=== PATIENT | female | born 1935 | race Hispanic/Latino ===

== ENCOUNTER 2016-08-30 17:32 | Emergency (ER) | payer OTHER, MEDICARE ==
[~2016-08-30] VITALS: Ht 160 cm; Wt 2.4 kg
[~2016-08-30 17:32] MED LIST: ATORVASTATIN CA40 MG PO; COREG6.25 M1 PO; CRESTOR 5MG5 MG PO; EFFEXOR-XR75 MG PO; ESCITALOPRAM OX10 MG PO; GABAPENTIN400 M2 PO; GLIPIZIDE ER5 MG PO; GLIPIZIDE XL10 MG PO; GLUCOPHAGE500 MG PO; HCTZ/LISINOPRIL1 TAB PO; HYDRODIURIL 2525 MG PO; K-DUR 20MEQ TA20 MEQ PO; LANTUS SOLOS100 U/ML SC; LASIX20 M1 PO; LEVEMIR 10100 UNITS/ SC; LOSARTAN POTAS100 MG PO; LOSARTAN POTASS50 MG PO; LYRICA50 MG PO; MACROBID100 MG PO; METFORMIN HYDR500 MG PO; NEURONTIN800 M2 PO; NORVASC 10MG10 MG PO; NOVOLOG 10300 UNITS/ SC; NOVOLOG100 U/ML SC; PRINIVIL10 MG PO; PYRIDIUM100 MG PO; SIMVASTATIN20 MG PO; TRAMADOL50 MG PO; TYLENOL WITH C1 EACH PO; VITAMIN D50000 IU PO
[2016-08-30] MEDS ORDERED: TRULICITY1.5 MG/0.5 SC (18:31)
[2016-08-30] MEDS ORDERED: LISINOPRIL40 M1 PO (18:31)
[2016-08-30] MEDS ORDERED: LO-DOSE ASPIRIN81 MG PO (18:32)
[2016-08-30] MEDS ORDERED: CARVEDILOL3.125 M1 PO (18:32)
[2016-08-30] MEDS ORDERED: BUPROPION HCL75 M1 PO (18:32)
[2016-08-30] MEDS ORDERED: ATORVASTATIN CA40 M1 PO (18:32)
[2016-08-30] MEDS ORDERED: HYDROCHLOROTH12.5 M2 PO (18:32)
[2016-08-30] MEDS ORDERED: FUROSEMIDE40 M1 PO (18:33)
[2016-08-30] MEDS ORDERED: NOVOLOG MI100 UNIT/2 SC (18:33)
[2016-08-30] MEDS ORDERED: DOXYCYCLINE HY100 M4 PO (20:12)
--- NOTE | 2016-08-30 20:12 | ED SKIN/ALLERGY COMPLAINT ---
History of Present Illness General Chief Complaint: Skin Rash/ Abcess Stated Complaint: ABSCESS R ARMPIT Source: patient Exam Limitations: no limitations Allergies Coded Allergies: Penicillins (Severe, ANAPHYLAXIS/RASH 10/29/15) Reconcile Medications Aspirin (Lo-Dose Aspirin EC) 81 MG TABLET.DR 1 TAB PO DAILY HEART/BLOOD ( Reported) Atorvastatin Calcium 40 MG TABLET 1 TAB PO DAILY CHOLESTEROL (Reported) Bupropion HCl 75 MG TABLET 1 TAB PO DAILY DEPRESSION (Reported) Carvedilol 3.125 MG TABLET 1 TAB PO BID HEART/BP (Reported) Doxycycline Hyclate 100 MG TABLET 1 TAB PO BID ABSCESS Dulaglutide (Trulicity) 1.5 MG/0.5 ML PEN.INJCTR 1.5 MG SC QTHURS DM ( Reported) Furosemide 40 MG TABLET 1 TAB PO DAILY DIURETIC (Reported) Hydrochlorothiazide 12.5 MG TABLET 1 TAB PO DAILY BP (Reported) Insulin Aspart Protam & Aspart (Novolog Mix 70-30 Flexpen Syrn) 100 UNIT/ML (70- 30) INSULN.PEN DM (Reported) Lisinopril 40 MG TABLET 1 TAB PO DAILY BP (Reported) Tramadol HCl 50 MG TABLET 1 TAB PO BIDP PRN pain Triage Note: PT STATSE SHE HAS AN ABCESS RIGHT "ARMPIT" THAT BEGAN 4 DAYS AGO WITH DRAINAGE SINCE YESTERDAY Triage Nurses Notes Reviewed? yes Onset: Abrupt Duration: day(s):, constant, continues in ED Timing: recent history Severity: moderate, severe No Modifying Factors: none HPI: 81-year-old female comes into emergency room with complaints of right armpit swelling and pain. Symptoms were going on for the past few days. Denies any vomiting. Denies any prior history of this. Denies any other associated symptoms. Patient has a history of diabetes. Culture was thrown out by accident that was obtained. Patient was started on doxycycline. She'll return for wound check in 3 days. (MANDO MEDINA) Vital Signs & Intake/Output Vital Signs & Intake/Output Vital Signs Date Time Temp Pulse Resp B/P Pulse O2 O2 Flow FiO2 Ox Delivery Rate 08/30 2034 89 142/70 08/30 1744 96.7 87 16 162/82 96 Room Air Past History Travel History Traveled to [place] past 21 day No Medical History Any Pertinent Medical History? see below for history Neurological: NONE EENT: NONE Cardiovascular: hypertension, hyperlipidemia Respiratory: NONE Gastrointestinal: NONE Hepatic: NONE Renal: NONE Musculoskeletal: rheumatoid arthritis Psychiatric: depression Endocrine: diabetes Blood Disorders: NONE Cancer(s): NONE AUTOMOTIVE PROFESSIONAL/Reproductive: NONE History of MRSA: No History of VRE: No History of CDIFF: No Surgical History Surgical History: hysterectomy Psychosocial History Who do you live with Patient/Self Services at Home None What is your primary language Yi Tobacco Use: Never used ETOH Use: denies use Illicit Drug Use: denies illicit drug use Family History Family History, If Any: grandfather FH: prostate cancer DAUGHTER Blood clots FH: diabetes mellitus FHx: hypertension SON Blood clots Hx Contributory? No (MANDO MEDINA) Review of Systems Review of Systems Constitutional: Reports: no symptoms. EENTM: Reports: no symptoms. Respiratory: Reports: no symptoms. Cardiovascular: Reports: no symptoms. GI: Reports: no symptoms. Genitourinary: Reports: no symptoms. Musculoskeletal: Reports: no symptoms. Skin: Reports: see HPI. Neurological/Psychological: Reports: no symptoms. Hematologic/Endocrine: Reports: no symptoms. Immunologic/Allergic: Reports: no symptoms. All Other Systems: Reviewed and Negative (MANDO MEDINA) Physical Exam Physical Exam General Appearance: well developed/nourished, mild distress Head: atraumatic Eyes: Bilateral: normal appearance. Ears, Nose, Throat: normal ENT inspection, hearing grossly normal Neck: normal inspection Respiratory: no respiratory distress Back: normal inspection Extremities: normal inspection, normal range of motion, no edema Neurologic/Psych: awake, alert, oriented x 3, normal mood/affect Skin Problem Location: upper extremities (right axilla) Skin Problem Character: abcess, drainage, erythema, tenderness and fluctuance, Lymphatic: no anterior cervical alissa (MANDO MEDINA) Progress Differential Diagnosis: abscess/cellulitis, allergic reaction, anaphylaxis, contact dermatitis Plan of Care: see below (MNADO MEDINA) Departure Departure Disposition: HOME OR SELF CARE Condition: Stable Clinical Impression Primary Impression: Abscess of right axilla Referrals: UNKNOWN (PCP) Additional Instructions: Return in 2 days for packing removal. Return if any other concerns worsening symptoms. Take Bactrim and amoxicillin as prescribed. Please go over all results of today's visit with your primary care doctor. Contact your primary care doctor to let them know you were here in the emergency room. There may be nonspecific findings which may not be related to your visit today here in the emergency room but may require further evaluation and chronic monitoring by your primary care doctor. If you had a laceration today the chance of foreign body always remains. You should follow-up with your primary care doctor for recheck in 3-5 days for a wound check. If you had an x-ray done there is a chance that a fracture could have been missed on initial read and you should follow-up with your primary care doctor for repeat x-rays if symptoms persist. If your blood pressure was elevated here in the emergency room please have rechecked by her primary care doctor within the next 48 hours by your primary care doctor. If you were prescribed a narcotic here in the emergency room or any type of controlled substances you're not allowed to drive while taking this medication or operate any type of heavy machinery. Narcotics can make you feel lightheaded dizziness nausea and can cause constipation. You may need to belt picker a stool softener. Thank you for choosing [facility] emergency room. Please return to the emergency room immediately if you have any other concerns worsening of symptoms. Departure Forms: Customer Survey General Discharge Information Prescriptions: Current Visit Scripts Doxycycline Hyclate 1 TAB PO BID #20 TAB Tramadol HCl 1 TAB PO BIDP PRN pain #10 TAB (MANDO MEDINA) PA/TENNIS BALL COVERER HAND Co-Sign Statement Statement: ED Attending supervision documentation- [x] I saw and evaluated the patient. I have also reviewed all the pertinent lab results and diagnostic results. I agree with the findings and the plan of care as documented in the PA's/TENNIS BALL COVERER HAND's documentation. [] I have reviewed the ED Record and agree with the PA's/TENNIS BALL COVERER HAND's documentation. [] Additions or exceptions (if any) to the PAs/TENNIS BALL COVERER HAND's note and plan are summarized below: [] (YUMI FOWLER,LEANNA Hoff) Procedures Incision and Drainage Site: right axilla Blade Size: 11 I & D Procedure: Yes: betadine prep, sterile drapes applied, sterile dressing applied, wick placed. Progress: 1% lidocaine, 3 mL injected, patient tolerated procedure well, copious amounts of pus, approximately 10 mL drained, (MANDO MEDINA)
[2016-08-30] MEDS ORDERED: TRAMADOL HCL50 M1 PO (20:29)
[2016-08-30 20:35] VITALS: BP 142/70
== END 2016-08-30 20:35 ==
LOC: ERH 17:32
DX: L02.411 Cutaneous abscess of right axilla (principal)

== ENCOUNTER 2016-09-22 15:17 | Emergency (ER) | payer OTHER, MEDICARE ==
[~2016-09-22] VITALS: Ht 160 cm; Wt 93.9 kg
[~2016-09-22 15:17] MED LIST changes: +ATORVASTATIN CA40 M1 PO; +BUPROPION HCL75 M1 PO; +CARVEDILOL3.125 M1 PO; +DOXYCYCLINE HY100 M4 PO; +FUROSEMIDE40 M1 PO; +HYDROCHLOROTH12.5 M2 PO; +LISINOPRIL40 M1 PO; +LO-DOSE ASPIRIN81 MG PO; +NOVOLOG MI100 UNIT/2 SC; +TRAMADOL HCL50 M1 PO; +TRULICITY1.5 MG/0.5 SC
[2016-09-22 15:56] LABS: ABSOLUTE BASOPHIL COUNT 0.1 /CUMM (0.0-0.2); ABSOLUTE EOSINOPHIL COUNT 0.2 /CUMM (0.0-0.7); ABSOLUTE GRANULOCYTE CT 6.6 /CUMM (1.4-6.5); ABSOLUTE LYMPH COUNT 2.7 /CUMM (1.2-3.4); ABSOLUTE MONOCYTE COUNT 0.8 /CUMM (0.10-0.60); BASOPHIL % 0.8 % (0.0-2.0); EOSINOPHIL % 1.5 % (0-5); HEMATOCRIT 28.3 % (37-47); MEAN CORPUSCULAR HGB 28.3 PG (27.0-31.0); MEAN CORPUSCULAR HGB CONC 32.9 G/DL (33.0-37.0); MEAN CORPUSCULAR VOLUME 85.8 FL (81.0-99.0); MEAN PLATELET VOLUME 8.6 FL (7.4-10.4); PLATELET COUNT 216 /CUMM (130-400); RBC DISTRIBUTION WIDTH 16.3 % (11.5-14.5); RED BLOOD CELL CT 3.29 /CUMM (4.20-5.40); WHITE BLOOD CELL COUNT 10.3 /CUMM (4.8-10.8)
--- NOTE | 2016-09-22 18:22 | ED GENERAL ADULT ---
History of Present Illness General Chief Complaint: General Adult Stated Complaint: BIBA BODY PAIN Source: patient Exam Limitations: no limitations Vital Signs & Intake/Output Vital Signs & Intake/Output Vital Signs Date Time Temp Pulse Resp B/P B/P Pulse O2 O2 Flow FiO2 Mean Ox Delivery Rate 09/22 1905 98.7 76 18 199/88 99 09/22 1522 98.0 80 18 180/88 98 Room Air ED Intake and Output 09/23 0000 09/22 1200 Intake Total Output Total Balance Patient 207 lb Weight Allergies Coded Allergies: Penicillins (Severe, ANAPHYLAXIS/RASH 10/29/15) Reconcile Medications Aspirin (Lo-Dose Aspirin EC) 81 MG TABLET.DR 1 TAB PO DAILY HEART/BLOOD ( Reported) Atorvastatin Calcium 40 MG TABLET 1 TAB PO DAILY CHOLESTEROL (Reported) Bupropion HCl 75 MG TABLET 1 TAB PO DAILY DEPRESSION (Reported) Carvedilol 3.125 MG TABLET 1 TAB PO BID HEART/BP (Reported) Doxycycline Hyclate 100 MG TABLET 1 TAB PO BID ABSCESS Dulaglutide (Trulicity) 1.5 MG/0.5 ML PEN.INJCTR 1.5 MG SC QTHURS DM ( Reported) Furosemide 40 MG TABLET 1 TAB PO DAILY DIURETIC (Reported) Hydrochlorothiazide 12.5 MG TABLET 1 TAB PO DAILY BP (Reported) Insulin Aspart Protam & Aspart (Novolog Mix 70-30 Flexpen Syrn) 100 UNIT/ML (70- 30) INSULN.PEN DM (Reported) Lisinopril 40 MG TABLET 1 TAB PO DAILY BP (Reported) Tramadol HCl 50 MG TABLET 1 TAB PO BIDP PRN pain Triage Note: PT TO ER STATES THAT LAST PM SHE HAD PAIN THAT RADIATED TO HER HEAD, H/O HTN DIABETES. DENIES PAIN AT THIS TIME Triage Nurses Notes Reviewed? yes HPI: This patient is a 81 year old female who presented for evaluation of chest pain and headache. Language barrier, so daughter at the bedside translated. Patient reported that she had constant, left-sided chest pain all last night which resolved on its own and is not currently present. She reported that the pain got up to a 9 out of 10, was nonradiating, and had no palliative or provoking factors. She also reported an 8 out of 10 frontal headache which is nonradiating and is getting better. This also began last night. She reported that she has high blood pressure and thinks that is the cause. She did take her blood pressure medication today. She reported some blurry vision last night but not currently. She denied and epistaxis, abdominal pain, nausea, vomiting, diarrhea, or difficulty breathing. Had an MRI of the head yesterday at [facility]. Past History Travel History Traveled to [place] past 21 day No Medical History Any Pertinent Medical History? see below for history Neurological: NONE EENT: NONE Cardiovascular: hypertension, hyperlipidemia Respiratory: NONE Gastrointestinal: NONE Hepatic: NONE Renal: NONE Musculoskeletal: rheumatoid arthritis Psychiatric: depression Endocrine: diabetes Blood Disorders: NONE Cancer(s): NONE PERSONNEL SECURITY ASSISTANT/Reproductive: NONE History of MRSA: No History of VRE: No History of CDIFF: No Surgical History Surgical History: hysterectomy Psychosocial History Who do you live with Patient/Self Services at Home None What is your primary language Frisian Tobacco Use: Never used ETOH Use: denies use Illicit Drug Use: denies illicit drug use Family History Family History, If Any: grandfather FH: prostate cancer DAUGHTER Blood clots FH: diabetes mellitus FHx: hypertension SON Blood clots Hx Contributory? No Review of Systems Review of Systems Constitutional: Reports: no symptoms. EENTM: Reports: no symptoms. Respiratory: Reports: no symptoms. Cardiovascular: Reports: see HPI. GI: Reports: no symptoms. Genitourinary: Reports: no symptoms. Musculoskeletal: Reports: no symptoms. Skin: Reports: no symptoms. Neurological/Psychological: Reports: see HPI. All Other Systems: Reviewed and Negative Physical Exam Physical Exam General Appearance: well developed/nourished, no apparent distress, alert, awake Comments: General: Well-developed, well-nourished person in no acute distress HEENT: Head normocephalic/atraumatic, no bony deformities/step-offs of the skull , moist mucous membranes Neck: No lymphadenopathy, no midline tenderness, FROM Back: NOrmal inspection Cardiovascular: RRR with no murmurs, rubs, or gallops Respiratory: No respiratory distress. Lungs CTA bilaterally with no W/R/R Abdomen: Soft, nontender, and nondistended. No rebound or guarding. No peritoneal signs Neuro: A&Ox3. Cranial nerves grossly intact. No facial droop. No aphasia. No unilateral weakness Psych: Normal mood and affect Core Measures ACS in differential dx? Yes CVA/TIA Diagnosis: No Severe Sepsis Present: No Septic Shock Present: No Progress Differential Diagnoses I considered the following diagnoses in my evaluation of the patient: [ hypertension, hypertensive crisis, diabetes, ACS, PE] Plan of Care: Orders Procedure Date/time Status Add-on Test (ER Only) 09/22 180 Active THYROID STIMULATING HORMONE 09/22 154 Complete LIPID PANEL 09/22 154 Complete FREE T4 09/22 154 Complete TROPONIN LEVEL 09/22 152 Complete COMPREHENSIVE METABOLIC PANEL 09/22 152 Complete CBC WITHOUT DIFFERENTIAL 09/22 152 Complete EKG 09/22 152 Active Laboratory Tests 09/22/16 1549: Anion Gap 10, Estimated GFR 36 L, BUN/Creatinine Ratio 20.7, Glucose 91, Calcium 9.0, Total Bilirubin 0.5, AST 24, ALT 35, Alkaline Phosphatase 113, Troponin I 0.02, Total Protein 6.4, Albumin 3.3 L, Globulin 3.1, Albumin/ Globulin Ratio 1.1, Triglycerides 179 H, Cholesterol 146, LDL Cholesterol, Calc 55 L, HDL Cholesterol 56, Cholesterol/HDL Ratio 3, TSH 2.230, Free T4 0.90, CBC w Diff NO MAN DIFF REQ, RBC 3.29 L, MCV 85.8, MCH 28.3, RDW 16.3 H, MPV 8.6, Gran % 64.0, Lymphocytes % 26.1, Monocytes % 7.6, Eosinophils % 1.5, Basophils % 0.8, Absolute Granulocytes 6.6 H, Absolute Lymphocytes 2.7, Absolute Monocytes 0.8 H, Absolute Eosinophils 0.2, Absolute Basophils 0.1, PUBS MCHC 32.9 L Diagnostic Imaging: Viewed by Me: Radiology Read. Discussed w/RAD: Radiology Read. CXR Impression: PATIENT: ALEJANDRINA CARLOS PRESENT AGE: 81 PATIENT ACCOUNT NO: [id number] : 37 LOCATION: [facility] ORDERING PHYSICIAN: RACHEL YUNG PA-C SERVICE DATE: 09/22/16-1803 EXAM TYPE: RAD - XRY-CHEST XRAY, PA AND LATERAL EXAMINATION: XR CHEST CLINICAL INFORMATION: Chest pain. Evaluate for cardiomegaly. COMPARISON: Multiple priors, most recent chest radiographs dated 11/02/2015. TECHNIQUE: PA and lateral views of the chest were obtained. FINDINGS: There are increased bilateral interstitial markings, not significantly changed since the prior examination. There is no focal airspace consolidation. There is no pleural effusion or pneumothorax. The cardiomediastinal silhouette is again noted to be mildly enlarged, not significantly changed. No acute osseous abnormality is seen. IMPRESSION: Prominence of the bilateral interstitial markings. Mild cardiomegaly. No significant interval change since the prior examination. DICTATED BY: JOLYNN DOWNEY MD DATE/TIME DICTATED:09/22/161835 NAIL GALVANIZER:MARTIN DATE/TIME TRANSCRIBED:09/22/161835 CONFIDENTIAL, DO NOT COPY WITHOUT APPROPRIATE AUTHORIZATION. <Electronically signed in Other Vendor System> SIGNED BY: JOLYNN DOWNEY MD 09/22/161846 Initial ED EKG: normal axis, normal intervals, normal QRS complex, normal sinus rhythm, no ST T wave changes, 89 bpm Comments: 09/22/2016 6:54:11 PM: patient reported relief of symptoms. no longer having a headache. Departure Departure Disposition: HOME OR SELF CARE Condition: Stable Clinical Impression Primary Impression: Headache Qualifiers: Headache type: unspecified Headache chronicity pattern: unspecified pattern Intractability: not intractable Qualified Code: R51 - Headache Referrals: PATIENT HAS NO PRIMARY CARE DR (PCP) Additional Instructions: PLEASE FOLLOW-UP WITH PCP. RETURN FOR ANY WORSENING SYMPTOMS OR CONCERNS. Departure Forms: Customer Survey General Discharge Information Critical Care Note Critical Care Note Critical Care Time: non-applicable ED Attending Observation Initial Observation Note: I have seen and personally examined ALEJANDRINA CARLOS on 09/22/16 at 1821. I agree with the current emergency department documentation. The disposition (admission or discharge) is uncertain at this time, she needs a period of observation for the following reason(s): The ED Nurse caring for this patient has been personally informed as to what the patient is being observed for.
--- NOTE | 2016-09-22 18:47 | RADIOLOGY REPORT ---
EXAMINATION: XR CHEST CLINICAL INFORMATION: Chest pain. Evaluate for cardiomegaly. COMPARISON: Multiple priors, most recent chest radiographs dated 11/02/2015. TECHNIQUE: PA and lateral views of the chest were obtained. FINDINGS: There are increased bilateral interstitial markings, not significantly changed since the prior examination. There is no focal airspace consolidation. There is no pleural effusion or pneumothorax. The cardiomediastinal silhouette is again noted to be mildly enlarged, not significantly changed. No acute osseous abnormality is seen. IMPRESSION: Prominence of the bilateral interstitial markings. Mild cardiomegaly. No significant interval change since the prior examination.
[2016-09-22 19:05] VITALS: BP 199/88
== END 2016-09-22 19:20 ==
LOC: ERH 15:17
PROVIDERS: Emergency Medicine
DX: R51 Headache (principal); R07.9 Chest pain, unspecified; I10 Essential (primary) hypertension; E11.9 Type 2 diabetes mellitus without complications; Z79.4 Long term (current) use of insulin
CPT/HCPCS: 93005; 93010; 96372; J1885

== ENCOUNTER 2016-10-13 16:00 | Emergency (ER) | payer OTHER, MEDICARE ==
[2016-10-13 16:10] VITALS: BP 198/87
[2016-10-13] MEDS ORDERED: ASPIRIN EC325 M2 PO (16:33)
[2016-10-13] MEDS ORDERED: GABAPENTIN300 M2 PO (16:38)
[2016-10-13] MEDS ORDERED: VITAMIN D250000 UNIT PO (16:38)
--- NOTE | 2016-10-13 17:10 | ED MVC/FALL/TRAUMA COMPLAINT ---
History of Present Illness General Chief Complaint: Low Back Pain/Injury Stated Complaint: BIBA FALL LOW BACK PAIN Source: patient, family, old records Exam Limitations: no limitations Vital Signs & Intake/Output Vital Signs & Intake/Output Vital Signs Date Time Temp Pulse Resp B/P B/P Pulse O2 O2 Flow FiO2 Mean Ox Delivery Rate 10/13 1617 96 Room Air 10/13 1610 98.3 87 16 198/87 95 Room Air Allergies Coded Allergies: Penicillins (Severe, ANAPHYLAXIS/RASH 10/29/15) Reconcile Medications Aspirin (Lo-Dose Aspirin EC) 81 MG TABLET.DR 1 TAB PO DAILY HEART/BLOOD ( Reported) Atorvastatin Calcium 40 MG TABLET 1 TAB PO DAILY CHOLESTEROL (Reported) Bupropion HCl 75 MG TABLET 1 TAB PO DAILY DEPRESSION (Reported) Carvedilol 3.125 MG TABLET 1 TAB PO BID HEART/BP (Reported) Dulaglutide (Trulicity) 1.5 MG/0.5 ML PEN.INJCTR 1.5 MG SC QTHURS DM ( Reported) Ergocalciferol (Vitamin D2) (Vitamin D2) 50,000 UNIT CAPSULE 1 CAP PO QWED SUPPLEMENT (Reported) Furosemide 40 MG TABLET 1 TAB PO DAILY DIURETIC (Reported) Gabapentin 300 MG CAPSULE 1 CAP PO DAILY NERVE PAIN (Reported) Hydrochlorothiazide 12.5 MG TABLET 1 TAB PO DAILY BP (Reported) Insulin Aspart Protam & Aspart (Novolog Mix 70-30 Flexpen Syrn) 100 UNIT/ML (70- 30) INSULN.PEN DM (Reported) Lisinopril 40 MG TABLET 1 TAB PO DAILY BP (Reported) Tylenol With Codeine (Tylenol With Codeine #3 Tablet) 300 MG-30 MG TABLET 1 TAB PO Q8P PRN PAIN Triage Note: BIBA UNWITNESSED FALL AT HOME, ARRIVES C/O LEFT SIDED LOW BACK PAIN PAIN. DENIES HEADSTRIKE OR C-SPINE TENDERNESS ON ASSESSMENT. AAOX3, PRIMARILY [place] SPEAKING BUT ABLE TO ANSWER QUESTIONS. ARRIVES HYPERTENSIVE , DENIES HEADACHE OR VISUAL CHANGES. DENIES C/P OR SOB, BREATH SOUNDS CLEAR. NSR ON TELE MONITOR WITHOUT ECTOPY. NO DEFORMITY NOTED ON ASSESSMENT. ABLE TO FLEX HIPS AND REPOSITION SELF INDEPENDENTLY ON STRETCHER WITHOUT ISSUE. ABLE TO SIT UP INDEPENDENTLY. +CMS TO ALL EXTREMITIES. Triage Nurses Notes Reviewed? yes HPI: Patient was brought in by her daughters for evaluation after a fall. Her daughter did not see her fall however the patient does have a history of colon. Patient has arthritis and she states that her legs just give out. Patient denies any chest pain or palpitations. There is no shortness of breath. There was no lightheadedness or near syncopal episodes. Patient states she was walking in her legs just gave out and she fell onto her left side. Patient did hit her head but there was no loss of consciousness. Patient is complaining of pain to her left shoulder and her left hip. The pain increased with movement. There is no radiation of the pains. The pain is throbbing in nature. The pain is 6 out of 10. Patient has been able to ambulate since the fall. Past History Travel History Traveled to [place] past 21 day No Medical History Any Pertinent Medical History? see below for history Neurological: NONE EENT: NONE Cardiovascular: hypertension, hyperlipidemia Respiratory: NONE Gastrointestinal: NONE Hepatic: NONE Renal: NONE Musculoskeletal: rheumatoid arthritis Psychiatric: depression Endocrine: diabetes Blood Disorders: NONE Cancer(s): NONE PET NUTRITION SPECIALIST/Reproductive: NONE History of MRSA: No History of VRE: No History of CDIFF: No Surgical History Surgical History: hysterectomy Psychosocial History Who do you live with Patient/Self Services at Home None What is your primary language Fijian Tobacco Use: Never used ETOH Use: denies use Illicit Drug Use: denies illicit drug use Family History Family History, If Any: grandfather FH: prostate cancer DAUGHTER Blood clots FH: diabetes mellitus FHx: hypertension SON Blood clots Hx Contributory? No Review of Systems Review of Systems Constitutional: Reports: no symptoms. Eyes: Reports: no symptoms. Ears, Nose, Throat, Mouth: Reports: no symptoms. Respiratory: Reports: no symptoms. Cardiovascular: Reports: no symptoms. Gastrointestinal/Abdominal: Reports: no symptoms. Genitourinary: Reports: no symptoms. Musculoskeletal: Reports: see HPI, joint pain. Skin: Reports: no symptoms. Neurological/Psychological: Reports: no symptoms. All Other Systems: Reviewed and Negative Physical Exam Physical Exam General Appearance: well developed/nourished, alert, awake, mild distress Head: atraumatic, normal appearance Eyes: Bilateral: PERRL, EOMI. Ears, Nose, Throat, Mouth: hearing grossly normal, moist mucous membrane Neck: normal inspection, supple, full range of motion Respiratory: normal breath sounds, chest non-tender, no respiratory distress, lungs clear Cardiovascular: regular rate/rhythm, normal peripheral pulses Gastrointestinal: normal bowel sounds, soft, non-tender, no organomegaly Back: normal inspection, normal range of motion Extremities: normal range of motion Neurologic/Psych: no motor/sensory deficits, awake, alert, oriented x 3, normal mood/affect Skin: intact, normal color, warm/dry Core Measures ACS in differential dx? No Severe Sepsis Present: No Septic Shock Present: No Progress Differential Diagnosis: C/T/L spine injury, ext injury Plan of Care: Orders Procedure Date/time Status XRY-SHOULDER COMPLETE-LEFT 10/13 1702 Active XRY-AP PELVIS 10/13 1702 Active Diagnostic Imaging: Viewed by Me: Radiology Read, CT Scan. Discussed w/RAD: Radiology Read, CT Scan. Radiology Impression: PATIENT: ALEJANDRINA CARLOS PRESENT AGE: 81 PATIENT ACCOUNT NO: [id number] : 37 LOCATION: [facility] ORDERING PHYSICIAN: CLAYTON HERMOSILLO MD SERVICE DATE: 10/13/16 EXAM TYPE: CAT - CT CERV SPINE WO IV CONTRAST; CT HEAD WO IV CONTRAST EXAMINATION: CT HEAD AND CERVICAL SPINE WITHOUT CONTRAST CLINICAL INFORMATION: Neck pain and headache following fall. COMPARISON: Noncontrast head CT 07/05/2015. Noncontrast CT of the head and cervical spine 01/09/2015. TECHNIQUE: Contiguous axial imaging was performed from the thoracic inlet to the vertex without intravenous administration of contrast. 2-D coronal and sagittal reformatted images of the cervical spine were obtained at the acquisition workstation. DLP: 932 mGy-cm. FINDINGS: Head: No acute intracranial abnormality. No acute intracranial hemorrhage, mass or mass effect or abnormal extra-axial fluid collections. The density within the dural venous sinuses is within normal limits. The ventricles are normal in size, without hydrocephalus. There are no focal areas of hypoattenuation within a vascular distribution to suggest acute transcortical ischemia. The basilar cisterns are patent. No acute calvarial abnormality is identified. Soft tissues appear unremarkable. The imaged paranasal sinuses and mastoid air cells are well aerated. Cervical spine: Noncontrast CT of the cervical spine demonstrates mild multilevel degenerative changes of the cervical spine, notably at C5-C6 and C6-C7. No acute cervical spine fracture or subluxation is identified. Redemonstrated is discontinuity involving the posterior spinous process of the C6 vertebral body, which may represent sequela of prior trauma versus a congenital variation. Prevertebral soft tissues are within normal limits. Degenerative changes are also identified at the atlantoaxial axial articulation. The atlantoaxial articulation and craniocervical junctions are otherwise grossly intact. No acute findings are identified within the imaged portions of the bilateral lung apices. IMPRESSION: 1. No acute intracranial abnormality. 2. No acute cervical spine fracture or subluxation. DICTATED BY: GAGE BENDER MD DATE/TIME DICTATED:10/13/161747 CONCESSION SUPERVISOR:MARTIN DATE/TIME TRANSCRIBED:10/13/161747 CONFIDENTIAL, DO NOT COPY WITHOUT APPROPRIATE AUTHORIZATION. <Electronically signed in Other Vendor System> SIGNED BY: GAGE BENDER MD 10/13/161809, PATIENT: ALEJANDRINA CARLOS PRESENT AGE: 81 PATIENT ACCOUNT NO: [id number] : 37 LOCATION: [facility] ORDERING PHYSICIAN: CLAYTON HERMOSILLO MD SERVICE DATE: 10/13/16 EXAM TYPE: RAD - XRY-SHOULDER COMPLETE-LEFT EXAMINATION: XR SHOULDER, LEFT CLINICAL INFORMATION: Fall. Pain. COMPARISON: Chest portable 11/02/2015 TECHNIQUE: Three views of the left shoulder. FINDINGS: No fracture. No dislocation. No acute abnormality. Glenohumeral joint normal. Small linear calcification encasing to the humeral head at the greater tuberosity of calcific bursitis or tendinosis. This is unchanged since prior chest x-ray. There is mild degenerative change of the distal clavicle at the acromioclavicular joint with small spurs and irregularity of the bone. This is unchanged since chest x-ray 11/02/2015. IMPRESSION: 1. No acute abnormality of shoulder. 2. Small calcification adjacent to the greater tuberosity of the humerus consistent with calcific tendinosis and/or bursitis. 3. Degenerative change of the acromioclavicular joint DICTATED BY: OLI EMERSON MD DATE/TIME DICTATED:10/13/161820 CONCESSION SUPERVISOR:ELKINS DATE/TIME TRANSCRIBED:1820 CONFIDENTIAL, DO NOT COPY WITHOUT APPROPRIATE AUTHORIZATION. < Electronically signed in Other Vendor System> SIGNED BY: OLI EMERSON MD [id number], PATIENT: ALEJANDRINA CARLOS PRESENT AGE: 81 PATIENT ACCOUNT NO: [id number] : 37 LOCATION: [facility] ORDERING PHYSICIAN: CLAYTON HERMOSILLO MD SERVICE DATE: 10/13/16 EXAM TYPE: RAD - XRY-AP PELVIS EXAMINATION: XR PELVIS CLINICAL INFORMATION: Fall. Pain. COMPARISON: Left hip 10/29/2015 TECHNIQUE: AP view of the pelvis. FINDINGS: No fracture pelvis or hips. No dislocation of hips. Sacroiliac joints are normal. Numerous calcifications in the pelvis which are phleboliths. IMPRESSION: No acute abnormality. DICTATED BY: OLI EMERSON MD DATE/TIME DICTATED:10/13/161823 CONCESSION SUPERVISOR:MARTIN DATE/TIME TRANSCRIBED:10/13/161823 CONFIDENTIAL, DO NOT COPY WITHOUT APPROPRIATE AUTHORIZATION. <Electronically signed in Other Vendor System> SIGNED BY: OLI EMERSON MD 10/13/161828 Departure Departure Disposition: HOME OR SELF CARE Condition: Stable Clinical Impression Primary Impression: Head injury Qualifiers: Encounter type: initial encounter Qualified Code: S09.90XA - Unspecified injury of head, initial encounter Secondary Impressions: Contusion of left hip Qualifiers: Encounter type: initial encounter Qualified Code: S70.02XA - Contusion of left hip, initial encounter Contusion of left shoulder Qualifiers: Encounter type: initial encounter Qualified Code: S40.012A - Contusion of left shoulder, initial encounter Referrals: PATIENT HAS NO PRIMARY CARE DR (PCP) Additional Instructions: Take Tylenol with Codeine as needed for pain. Return for any concerns. Departure Forms: Customer Survey General Discharge Information Prescriptions: Current Visit Scripts Tylenol With Codeine (Tylenol With Codeine #3 Tablet) 1 TAB PO Q8P PRN PAIN #20 TAB
--- NOTE | 2016-10-13 18:10 | CT SCAN REPORT ---
EXAMINATION: CT HEAD AND CERVICAL SPINE WITHOUT CONTRAST CLINICAL INFORMATION: Neck pain and headache following fall. COMPARISON: Noncontrast head CT 07/05/2015. Noncontrast CT of the head and cervical spine 01/09/2015. TECHNIQUE: Contiguous axial imaging was performed from the thoracic inlet to the vertex without intravenous administration of contrast. 2-D coronal and sagittal reformatted images of the cervical spine were obtained at the acquisition workstation. DLP: 932 mGy-cm. FINDINGS: Head: No acute intracranial abnormality. No acute intracranial hemorrhage, mass or mass effect or abnormal extra-axial fluid collections. The density within the dural venous sinuses is within normal limits. The ventricles are normal in size, without hydrocephalus. There are no focal areas of hypoattenuation within a vascular distribution to suggest acute transcortical ischemia. The basilar cisterns are patent. No acute calvarial abnormality is identified. Soft tissues appear unremarkable. The imaged paranasal sinuses and mastoid air cells are well aerated. Cervical spine: Noncontrast CT of the cervical spine demonstrates mild multilevel degenerative changes of the cervical spine, notably at C5-C6 and C6-C7. No acute cervical spine fracture or subluxation is identified. Redemonstrated is discontinuity involving the posterior spinous process of the C6 vertebral body, which may represent sequela of prior trauma versus a congenital variation. Prevertebral soft tissues are within normal limits. Degenerative changes are also identified at the atlantoaxial axial articulation. The atlantoaxial articulation and craniocervical junctions are otherwise grossly intact. No acute findings are identified within the imaged portions of the bilateral lung apices. IMPRESSION: 1. No acute intracranial abnormality. 2. No acute cervical spine fracture or subluxation.
--- NOTE | 2016-10-13 18:27 | RADIOLOGY REPORT ---
EXAMINATION: XR SHOULDER, LEFT CLINICAL INFORMATION: Fall. Pain. COMPARISON: Chest portable 11/02/2015 TECHNIQUE: Three views of the left shoulder. FINDINGS: No fracture. No dislocation. No acute abnormality. Glenohumeral joint normal. Small linear calcification encasing to the humeral head at the greater tuberosity of calcific bursitis or tendinosis. This is unchanged since prior chest x-ray. There is mild degenerative change of the distal clavicle at the acromioclavicular joint with small spurs and irregularity of the bone. This is unchanged since chest x-ray 11/02/2015. IMPRESSION: 1. No acute abnormality of shoulder. 2. Small calcification adjacent to the greater tuberosity of the humerus consistent with calcific tendinosis and/or bursitis. 3. Degenerative change of the acromioclavicular joint
--- NOTE | 2016-10-13 18:29 | RADIOLOGY REPORT ---
EXAMINATION: XR PELVIS CLINICAL INFORMATION: Fall. Pain. COMPARISON: Left hip 10/29/2015 TECHNIQUE: AP view of the pelvis. FINDINGS: No fracture pelvis or hips. No dislocation of hips. Sacroiliac joints are normal. Numerous calcifications in the pelvis which are phleboliths. IMPRESSION: No acute abnormality.
[2016-10-13] MEDS ORDERED: TYLENOL WITH C1 EACH PO (19:07)
== END 2016-10-13 19:40 ==
LOC: ERH 16:00
DX: S09.90XA Unspecified injury of head, initial encounter (principal); S70.02XA Contusion of left hip, initial encounter; S40.012A Contusion of left shoulder, initial encounter; W19.XXXA Unspecified fall, initial encounter; Y92.9 Unspecified place or not applicable; Y93.9 Activity, unspecified
CPT/HCPCS: 72170; 73030-LT

== ENCOUNTER 2017-05-16 11:31 | Inpatient (IN) | payer OTHER, MEDICARE ==
[~2017-05-16] VITALS: Ht 160 cm; Wt 97.7 kg
[~2017-05-16 11:31] MED LIST changes: +ASPIRIN EC325 M2 PO; +GABAPENTIN300 M2 PO; +LISINOPRIL5 M1 PO; +NOVOLOG MI100 UNIT/2; +VITAMIN D250000 UNIT PO
[2017-05-16 12:42] LABS: ABSOLUTE BASOPHIL COUNT 0 /CUMM (0.0-0.2); ABSOLUTE EOSINOPHIL COUNT 0.1 /CUMM (0.0-0.7); ABSOLUTE GRANULOCYTE CT 11.8 /CUMM (1.4-6.5); ABSOLUTE LYMPH COUNT 0.5 /CUMM (1.2-3.4); ABSOLUTE MONOCYTE COUNT 0.7 /CUMM (0.10-0.60); BASOPHIL % 0.2 % (0.0-2.0); EOSINOPHIL % 0.4 % (0-5); HEMATOCRIT 28.9 % (37-47); MEAN CORPUSCULAR HGB 29.2 PG (27.0-31.0); MEAN CORPUSCULAR HGB CONC 33.5 G/DL (33.0-37.0); MEAN CORPUSCULAR VOLUME 87.2 FL (81.0-99.0); MEAN PLATELET VOLUME 8.8 FL (7.4-10.4); RBC DISTRIBUTION WIDTH 14.8 % (11.5-14.5); RED BLOOD CELL CT 3.31 /CUMM (4.20-5.40); WHITE BLOOD CELL COUNT 13.1 /CUMM (4.8-10.8)
[2017-05-16] MEDS ORDERED: HYDROCHLOROTH12.5 M2 PO (12:47)
[2017-05-16] MEDS ORDERED: VITAMIN D250000 UNIT PO (12:47)
--- NOTE | 2017-05-16 12:48 | RADIOLOGY REPORT ---
EXAMINATION: XR PORTABLE CHEST CLINICAL INFORMATION: Congestive heart failure. Pneumonia. COMPARISON: Chest radiograph dated 02/18/2017. TECHNIQUE: Portable frontal view of the chest was obtained. FINDINGS: There are low lung volumes. Cardiac silhouette appears enlarged. There is calcification of the thoracic aorta. There is pulmonary vascular congestion and bibasilar airspace opacities, likely representing pulmonary edema. I suspect there are small pleural effusions bilaterally. No pneumothorax. IMPRESSION: Cardiomegaly and pulmonary edema. I suspect there are small bilateral pleural effusions.
[2017-05-16 13:05] LABS: PLATELET COUNT 279 /CUMM (130-400)
[2017-05-16 13:06] LABS: GRANULOCYTE % 90.2 % (42.2-75.2)
--- NOTE | 2017-05-16 13:22 | ED DYSPNEA/ASTHMA COMPLAINT ---
History of Present Illness General Chief Complaint: Dyspnea (COPD, CHF, Other) Stated Complaint: BIBJosemanuel, SOB Source: patient, family, old records Exam Limitations: language barrier Vital Signs & Intake/Output Vital Signs & Intake/Output Vital Signs Date Time Temp Pulse Resp B/P B/P Pulse O2 O2 Flow FiO2 Mean Ox Delivery Rate 05/16 1338 97.0 80 20 159/64 94 Nasal 4.0L Cannula 05/16 1244 97.0 85 22 168/79 92 Nasal 4.0L Cannula 05/16 1200 160/78 05/16 1137 98.5 107 24 233/95 80 Room Air Allergies Coded Allergies: Penicillins (Severe, ANAPHYLAXIS/RASH 10/29/15) Reconcile Medications Aspirin (Lo-Dose Aspirin EC) 81 MG TABLET.DR 1 TAB PO DAILY HEART/BLOOD ( Reported) Atorvastatin Calcium 40 MG TABLET 1 TAB PO DAILY CHOLESTEROL (Reported) Carvedilol 3.125 MG TABLET 1 TAB PO BID HEART/BP (Reported) Dulaglutide (Trulicity) 1.5 MG/0.5 ML PEN.INJCTR 1.5 MG SC QTHURS DM ( Reported) Ergocalciferol (Vitamin D2) (Vitamin D2) 50,000 UNIT CAPSULE 1 CAP PO QW VITAMIN SUPPORT (Reported) Gabapentin 300 MG CAPSULE 1 CAP PO DAILY NERVE PAIN (Reported) Hydrochlorothiazide 12.5 MG TABLET 1 TAB PO DAILY WATER RETENTION (Reported) Insulin Aspart Protam & Aspart (Novolog Mix 70-30 Flexpen Syrn) 100 UNIT/ML (70- 30) INSULN.PEN 25 UNITS SC BIDAC DIABETES TAKE 25 UNITS BEFORE BREAKFAST AND BEFORE DINNER CHECK BLOOD SUGAR BEFORE BREAKFAST AND DINNER AND KEEP RECORD Lisinopril 5 MG TABLET 1 TAB PO DAILY BP (Reported) Triage Note: RECEIVED 81 YO FEMALE KHLOE FROM HOME WITH REPORT OF SHORTNESS OF BREATH X 2 DAYS, WORSE ON EXERTION WITH COUGHING AND CHEST DISCOMFORT WITH COUGHING. O2 SATS 80% ON ROOM AIR UPON ARRIVAL TO ED. PT PLACED ON 2L O2 VIA N/C AMD O2 SATS INCREASED TO 97%. Triage Nurses Notes Reviewed? yes Onset: 2 days Duration: day(s):, constant, continues in ED Timing: recent history Severity: severe Activities at Onset: none Prior Episodes/Possible Cause: illness exposure Modifying Factors: Improves With: rest. Worsens With: movement. Associated Symptoms: cough, chest pain, weakness LMP (ages 10-50): post menopausal : No Patient currently breastfeeds: No HPI: 3 days prior to admission patient has been without heat reportedly because a was unable repair defects. She complains of progressive shortness of breath with productive cough of dark sputum weakness anorexia chest tightness. She denies fever chills nausea vomiting diarrhea abdominal pain headache dysuria rash bleeding. Past History Travel History Traveled to [place] past 21 day No Medical History Any Pertinent Medical History? see below for history Neurological: EARLY DEMENTIA EENT: NONE Cardiovascular: hypertension, hyperlipidemia Respiratory: NONE Gastrointestinal: NONE Hepatic: NONE Renal: NONE Musculoskeletal: rheumatoid arthritis, LUPUS Psychiatric: depression Endocrine: diabetes Blood Disorders: anemia Cancer(s): NONE MEDICAL CLINIC MANAGER/Reproductive: NONE Other Medical Hx: LUPUS History of MRSA: No History of VRE: No History of CDIFF: No Surgical History Surgical History: hysterectomy Psychosocial History Who do you live with Patient/Self Services at Home None What is your primary language Gambian Tobacco Use: Never used Family History Family History, If Any: grandfather FH: prostate cancer DAUGHTER Blood clots FH: diabetes mellitus FHx: hypertension SON Blood clots Hx Contributory? No Review of Systems Review of Systems Constitutional: Reports: see HPI, weakness. EENTM: Reports: no symptoms. Respiratory: Reports: see HPI, cough, short of breath, sputum production. Cardiovascular: Reports: see HPI, chest pain. GI: Reports: no symptoms. Genitourinary: Reports: no symptoms. Musculoskeletal: Reports: no symptoms. Skin: Reports: no symptoms. Neurological/Psychological: Reports: no symptoms. Hematologic/Endocrine: Reports: no symptoms. Immunologic/Allergic: Reports: no symptoms. All Other Systems: Reviewed and Negative Physical Exam Physical Exam General Appearance: well developed/nourished, alert, awake, anxious, severe distress, obese Head: atraumatic, normal appearance Eyes: Bilateral: normal appearance, PERRL, EOMI. Ears, Nose, Throat: normal pharynx, normal ENT inspection, hearing grossly normal, moist mucus membranes Neck: normal inspection, supple, full range of motion, no midline tenderness Respiratory: chest non-tender, decreased breath sounds, accessory muscle use, rales, respiratory distress Cardiovascular: regular rate/rhythm, normal peripheral pulses, norml femoral pulses equa Peripheral Pulses: 4+ carotid (R), 4+ carotid (L) Gastrointestinal: normal bowel sounds, soft, non-tender, no organomegaly Extremities: normal inspection, normal capillary refill, normal range of motion, no edema Neurologic/Psych: no motor/sensory deficits, awake, alert, oriented x 3, normal mood/affect, tile helper II-XII nml as tested Skin: intact, normal color, warm/dry Lymphatic: no anterior cervical alissa Core Measures ACS in differential dx? No No ASA d/t Medical Contraindication CVA/TIA Diagnosis No Sepsis Present: No Sepsis Focused Exam Completed? No Progress Differential Diagnosis: asthma, bronchitis, CHF, COPD, pneumonia Plan of Care: Orders Procedure Date/time Status CBC WITHOUT DIFFERENTIAL 05/17 599 Active BASIC ELECTROLYTES PLUS BUN&CR 05/17 06 Active Heart Healthy Diet 05/16 L Active Pathway - chart 05/16 1417 Active House Staff 05/16 1417 Active Patient Data 05/16 1417 Active Code Status 05/16 1417 Active Patient Data 05/16 1331 Active OXYGEN SETUP (GEN) 05/16 1317 Active Saline Lock 05/16 1317 Active Admit to inpatient 05/16 1317 Active Vital Signs 05/16 1317 Active Activity/Ambulation 05/16 1317 Active Code Status 05/16 1317 Complete BLOOD CULTURE 05/16 1154 Active TROPONIN LEVEL 05/16 1154 Complete MAGNESIUM 05/16 1154 Complete COMPREHENSIVE METABOLIC PANEL 05/16 1154 Complete CBC WITHOUT DIFFERENTIAL 05/16 1154 Complete B-TYPE NATRIURETIC PEP (BNP) 05/16 1154 Complete EKG 05/16 1137 Active VTE Mechanical Prophylaxis 05/16 UNK Active Vital Signs 05/16 UNK Active Telemetry/Conveyor Feeder 05/16 UNK Active Intake & Output 05/16 UNK Active Current Medications Sig/Hermelinda Start time Last Medication Dose Stop Time Status Admin Heparin Sodium 5,000 UNIT Q8 05/16 2200 AC (Porcine) Acetaminophen 650 MG Q6P PRN 05/16 1430 UNVr (Tylenol) Acetaminophen 1,000 MG Q6P PRN 05/16 1430 AC (Ofirmev) Oxycodone/ 2 TAB Q6P PRN 05/16 1430 AC Acetaminophen (Percocet) Laboratory Tests 05/16/17 1225: Anion Gap 9, Estimated GFR 29 L, BUN/Creatinine Ratio 24.7, Glucose 261 H, Calcium 9.4, Magnesium 1.5 L, Total Bilirubin 0.3, AST 25, ALT 25, Alkaline Phosphatase 180 H, Troponin I 0.08, Yby-Z-Eewwcdpvgrw Pept 2840 H, Total Protein 6.7, Albumin 3.3 L, Globulin 3.4, Albumin/Globulin Ratio 1.0 L, CBC w Diff NO MAN DIFF REQ, RBC 3.31 L, MCV 87.2, MCH 29.2, RDW 14.8 H, MPV 8.8, Gran % 90.2 H, Lymphocytes % 4.2 L, Monocytes % 5.0, Eosinophils % 0.4, Basophils % 0.2, Absolute Granulocytes 11.8 H, Absolute Lymphocytes 0.5 L, Absolute Monocytes 0.7 H, Absolute Eosinophils 0.1, Absolute Basophils 0, PUBS MCHC 33.5 Microbiology 05/16 1240 BLOOD: Blood Culture - RECD 05/16 1225 BLOOD: Blood Culture - RECD Diagnostic Imaging: Viewed by Me: Radiology Read. Discussed w/RAD: Radiology Read. CXR Impression: Cardiomegaly and pulmonary edema. I suspect there are small bilateral pleural effusions. Initial ED EKG: normal axis, normal intervals, normal p-waves, normal QRS complex, rate (sinus tachycardia) Repeat EKG: unchanged Rhythm Strip: sinus tachycardia Departure Departure Disposition: STILL A PATIENT Condition: Stable Clinical Impression Primary Impression: Pneumonia Secondary Impressions: CHF (congestive heart failure), Renal insufficiency Referrals: Unknown (PCP) Departure Forms: Customer Survey General Discharge Information Admission Note Spoke With: Jimena Grubbs MD Documentation of Exam: Documentation of any treatments & extenuating circumstances including Concerns Regarding Discharge (functional status, medication knowledge or non-compliance, living conditions, etc.) that warrant an admission rather than observation: Supplemental oxygen IV diuresis IV antibiotics serial lab exam medication adjustment cardiac monitoring continuing care discharge planning Critical Care Note Critical Care Note Critical Care Time: non-applicable
--- NOTE | 2017-05-16 13:25 | History & Physical ---
Abran FOWLER,James 05/16/17 1324: General Information and HPI History of Present Illness: Ms. Hummel is a 81-year-old female with past medical history of dementia, hypertension, hyperlipidemia, rheumatoid arthritis, systemic lupus erythematosus , chronic kidney disease followed by Dr. Kathleen, depression, diabetes mellitus, HFpEF followed by Dr. Yee who presents with dyspnea. The patient became short of breath yesterday while at home at rest. She also had associated chest pain that was in the middle of her chest and radiated to her shoulder and jaw and was worse and worse with exertion. This pain came and went. She also had some back pain, a nonproductive cough, and some chills. Her symptoms persisted and because of this she decided to come in for further evaluation. She denied any nausea, vomiting, diaphoresis, sick contacts, fever, palpitations, headache, abdominal pain, dysuria, diarrhea, rash, weight gain, swollen legs, or increased salt intake. The patient smoked 2-3 cigars per day for 2-3 years and quit 10 years ago. No alcohol or drugs. She lives with her daughter and 2 grandkids the house. Allergies/Medications Allergies: Coded Allergies: Penicillins (Severe, ANAPHYLAXIS/RASH 10/29/15) Home Med list Aspirin (Lo-Dose Aspirin EC) 81 MG TABLET.DR 1 TAB PO DAILY HEART/BLOOD ( Reported) Atorvastatin Calcium 40 MG TABLET 1 TAB PO DAILY CHOLESTEROL (Reported) Carvedilol 3.125 MG TABLET 1 TAB PO BID HEART/BP (Reported) Dulaglutide (Trulicity) 1.5 MG/0.5 ML PEN.INJCTR 1.5 MG SC QTHURS DM ( Reported) Ergocalciferol (Vitamin D2) (Vitamin D2) 50,000 UNIT CAPSULE 1 CAP PO QW VITAMIN SUPPORT (Reported) Gabapentin 300 MG CAPSULE 1 CAP PO DAILY NERVE PAIN (Reported) Hydrochlorothiazide 12.5 MG TABLET 1 TAB PO DAILY WATER RETENTION (Reported) Insulin Aspart Protam & Aspart (Novolog Mix 70-30 Flexpen Syrn) 100 UNIT/ML (70- 30) INSULN.PEN 25 UNITS SC BIDAC DIABETES TAKE 25 UNITS BEFORE BREAKFAST AND BEFORE DINNER CHECK BLOOD SUGAR BEFORE BREAKFAST AND DINNER AND KEEP RECORD Lisinopril 5 MG TABLET 1 TAB PO DAILY BP (Reported) Past History Travel History Traveled to [place] past 21 day No Medical History Neurological: EARLY DEMENTIA EENT: NONE Cardiovascular: hypertension, hyperlipidemia Respiratory: NONE Gastrointestinal: NONE Hepatic: NONE Renal: NONE Musculoskeletal: rheumatoid arthritis, LUPUS Psychiatric: depression Endocrine: diabetes Blood Disorders: anemia Cancer(s): NONE GOSPEL WORKER/Reproductive: NONE Other Medical Hx: LUPUS History of MRSA: No History of VRE: No History of CDIFF: No Surgical History Surgical History: hysterectomy Past Family/Social History Family History Relations & Conditions if any grandfather FH: prostate cancer DAUGHTER Blood clots FH: diabetes mellitus FHx: hypertension SON Blood clots Psychosocial History Who Do You Live With? self Services at Home: None Primary Language: Bengali Functional Ability ADLs Independent: dressing, eating, toileting, bathing. Ambulation: walker IADLs Independent: shopping, housework, finances, food prep, telephone, transportation , medication admin. Review of Systems Review of Systems Constitutional: Reports: see HPI. EENTM: Reports: no symptoms. Cardiovascular: Reports: see HPI. Respiratory: Reports: see HPI. GI: Reports: no symptoms. Genitourinary: Reports: no symptoms. Musculoskeletal: Reports: no symptoms. Skin: Reports: no symptoms. Neurological/Psychological: Reports: no symptoms. Hematologic/Endocrine: Reports: no symptoms. Immunologic/Allergic: Reports: no symptoms. All Other Systems: Reviewed and Negative Exam & Diagnostic Data Last 24 Hrs of Vital Signs/I&O Vital Signs Date Time Temp Pulse Resp B/P B/P Pulse O2 O2 Flow FiO2 Mean Ox Delivery Rate 05/16 1338 97.0 80 20 159/64 94 Nasal 4.0L Cannula 05/16 1244 97.0 85 22 168/79 92 Nasal 4.0L Cannula 05/16 1200 160/78 05/16 1137 98.5 107 24 233/95 80 Room Air Intake & Output 05/16 1600 05/16 0800 05/16 0000 Intake Total Output Total Balance Patient 206 lb Weight Weight Estimated Measurement Method Physical Exam General Appearance Alert, Oriented X3, Cooperative, No Acute Distress Skin No Rashes, No Breakdown, No Significant Lesion HEENT Atraumatic, PERRLA, EOMI Neck No JVD Cardiovascular Normal S1, Normal S2, tachycardic Lungs mild crackles at bases Abdomen Normal Bowel Sounds, Soft, No Tenderness Neurological Normal Speech Extremities 1+ pitting edema, bilaterally, though right leg slightly more swollen without calf tenderness Vascular Normal Pulses Last 24 Hrs of Labs/[place]: Laboratory Tests 05/16/17 1225: Anion Gap 9, Estimated GFR 29 L, BUN/Creatinine Ratio 24.7, Glucose 261 H, Calcium 9.4, Magnesium 1.5 L, Total Bilirubin 0.3, AST 25, ALT 25, Alkaline Phosphatase 180 H, Troponin I 0.08, Ktc-W-Zisvbwhmvcr Pept 2840 H, Total Protein 6.7, Albumin 3.3 L, Globulin 3.4, Albumin/Globulin Ratio 1.0 L, CBC w Diff NO MAN DIFF REQ, RBC 3.31 L, MCV 87.2, MCH 29.2, RDW 14.8 H, MPV 8.8, Gran % 90.2 H, Lymphocytes % 4.2 L, Monocytes % 5.0, Eosinophils % 0.4, Basophils % 0.2, Absolute Granulocytes 11.8 H, Absolute Lymphocytes 0.5 L, Absolute Monocytes 0.7 H, Absolute Eosinophils 0.1, Absolute Basophils 0, PUBS MCHC 33.5 Microbiology 05/16 1240 BLOOD: Blood Culture - RECD 05/16 1225 BLOOD: Blood Culture - RECD Assessment/Plan Assessment: Ms. Hummel is a 81-year-old female with past medical history of dementia, hypertension, hyperlipidemia, rheumatoid arthritis, systemic lupus erythematosus , chronic kidney disease followed by Dr. Kathleen, depression, diabetes mellitus, HFpEF followed by Dr. Yee who presents with dyspnea. On presentation, vital signs were T 98.5, HR 107, RR 24, BP 2-3/95, saturating 80% on room air. Laboratories are significant for white blood cell count 13.1, 90.2% monocytes, 11 9.7, MCV 87.2, BUN 42, creatinine 1.7 (baseline 1.9 post (, calcium 9.4, albumin 3.3, magnesium 1.5, alkaline phosphatase 180, troponin 0.08 , BNP 2840 (baseline 1000) 6. Chest x-ray revealed cardiomegaly, pulmonary edema , and small bilateral pleural effusions. She'll be admitted to telemetry and treated for the following problem: 1. Acute hypoxic respiratory failure 2. Chest pain syndrome 3. Acute decompensated Heart Failure 4. SIRS criteria without a source 5. Normocytic anemia 6. Hypomagnesemia #Chest pain syndrome: Patient presents with a history of chest pain is worse with exertion. She has had no previous TN stress several risk factors for cardiovascular event. EKG currently shows no changes except for tachycardia and troponin is negative. -EKG and troponins 3 -Telemetry monitoring #Acute decompensated Heart Failure: Patient has history of heart failure with preserved ejection fraction, elevated BNP, respiratory desaturation and swollen legs. Most likely this represents decompensation heart failure. Leukocytosis is likely reactive and less likely infectious. She does meet 3/4 SIRS criteria ( tachycardia, tachypnea, leukocytosis) this but there is no source. -TTE -Daily weights, I/O -Furosemide 20mg IV BID -hold HCTZ #Hypomagnesemia: Mild and asymptomatic -Replenish electrolytes #Normocytic anemia: Iron studies were performed 2016 were normal. Likely chronic disease. -Continue to monitor #Chronic medical problems: Hyperlipidemia, CAD, hypertension, peripheral neuropathy, -Continue home atorvastatin, aspirin, lisinopril, gabapentin, carvedilol DVT prophylaxis with heparin Consistent carbohydrate 2 diet Full code As Ranked By This Provider Problem List: 1. CHF (congestive heart failure) Core Measures/Misc (01/29) Acute Coronary Syndrome ACS Diagnosis: No Congestive Heart Failure Congestive Heart Failure Diagnosis Yes Last Known EF % 65 Cerebrovascular Accident CVA/TIA Diagnosis: No VTE (View Protocol) VTE Risk Factors Age>40 No Mechanical VTE Prophylaxis d/t N/A MechProphylax Ordered No VTE Pharm Prophylaxis d/t NA PharmProphylax ordered Sepsis (View protocol) Sepsis Present: No Get Hopper 05/16/17 1623: Resident Review Statement Resident Statement: examined this patient, discussed with internal medicine hospitalist, agreed with internal medicine hospitalist, discussed with family, reviewed EMR data (avail), discussed with nursing , discussed with case mgmt, reviewed images, amended to note Other Findings: This is a 81-year-old female with past medical history significant for hypertension, diabetes mellitus, neuropathy, hyperlipidemia, rheumatoid arthritis, lupus, depression, anemia, diastolic congestive heart failure, pulmonary hypertension presented with worsening shortness of breath for 1 day. Patient reports shortness of breath at rest and increased with exertion for last 24-48 hours. Her shortness of breath is associated with chest discomfort. She reports chest pain middle of her chest going to her back and shoulder. Increased with cough and associated with shortness of breath. Gets on and off chest pain. Denies any nausea, vomiting, sweating, diaphoresis. Denied any palpitations. Of note patient reports ongoing cough for past 1 week associated with shortness of breath. Denied any fever, chills, productive phlegm, sick contacts or travel history. Patient reports that she is not on Lasix. Lasix was discontinued by her coagulating drying supervisor because of kidney disease. She denies taking extra salt, weight gain. Noticed that her legs were swollen more recently. On presentation, vital signs were T 98.5, HR 107, RR 24, BP 2-3/95, saturating 80% on room air. Laboratories are significant for white blood cell count 13.1, 90.2% monocytes, 11 9.7, MCV 87.2, BUN 42, creatinine 1.7 (baseline 1.9 post (, calcium 9.4, albumin 3.3, magnesium 1.5, alkaline phosphatase 180, troponin 0.08 , BNP 2840 (baseline 1000) 6. Chest x-ray revealed cardiomegaly, pulmonary edema , and small bilateral pleural effusions. 1. Acute hypoxic respiratory failure/acute on chronic diastolic congestive heart failure Patient presented with shortness of breath at rest and more with exertion for few days. Off note she is not on Lasix as it was discontinued by her coagulating drying supervisor because of kidney disease. Last echocardiogram in 2016 showed diastolic heart failure. She follows up with Dr. Yee as an outpatient. Vitals were stable however proBNP was elevated 2840 with chest x-ray findings as history of cardiomegaly, pulmonary edema, bilateral pleural effusions. She will be admitted to telemetry floor for acute hypoxic respiratory failure secondary to acute on chronic diastolic heart failure. * Continuous telemetry monitoring * Patient received 1 dose of IV Lasix in the emergency room 40 mg * Cardiology consult * We will give IV Lasix 20 mg twice daily * Monitor ins and outs * Daily weights * Foleys catheter * Cardiology consult * Echocardiogram Elevated troponin mostly type II TN Patient reports on and off chest pain for few days, associated with shortness of breath. Off note she is diabetic with chronic kidney disease, hypertensive, hyperlipidemic. Patient was found to have elevated troponin 0.37. First set of troponin and EKG was negative. No EKG changes suggestive of ST-T wave changes. However next troponin was elevated 2.37. With no EKG changes. Elevated troponins most likely from chronic kidney disease versus demand ischemia versus type I TN. * Cardiology was consulted * Serial troponin and EKG * Patient was started on IV heparin drip * Continue aspirin, high-dose statin * Continue lisinopril SIRS criteria Patient has tachycardia, tachypnea when she presented to ER with leukocytosis. Other obvious source of infection was not found. Denies any urinary symptoms. Chest x-ray was clear without any consolidation or pneumonia. Will continue to monitor her for fevers, WBC count. Will hold off antibiotics for now. Hypomagnesemia Magnesium 1.5, repleted. Will recheck electrolytes in a.m. Normocytic anemia Iron studies were performed 2016 were normal. Likely chronic disease. -Continue to monitor Chronic kidney disease Creatinine stable 1.7 Will avoid hydrochlorothiazide. Diabetes mellitus Accu-Cheks Patient takes 70-30 mix 25 units twice daily Hypertension-continue lisinopril, carvedilol. Please hold hydrochlorothiazide. Neuropathy continue gabapentin Hyperlipidemia continue statins DVT prophylaxis with heparin Consistent carbohydrate 2 diet Full code
--- NOTE | 2017-05-16 15:29 | Admission Certification ---
Admission Certification Certification Statement - As attending physician, I certify that at the time of - admission, based on clinical presentation, severity of - symptoms, need for further diagnostic testing and - therapeutic interventions, and risk of adverse outcomes - without in-hospital treatment, in my clinical assessment, - this patient requires an acute hospital stay for a minimum - of two nights or longer. I have also considered psychsocial - factors such as support system, advanced age, financial - issues, cognitive issues, and failed out-patient treatments, - past re-admission history, safety of patient, and lack of - compliance as applicable. Specific rationale supporting this admission is: acute diastolic chf exacerbation
--- NOTE | 2017-05-16 15:34 | PN- Att Addend ---
Attending MD Review Statement Attending Statement Attending MD Statement: examined this patient, discuss w/resident/PA/APPLIANCE REPAIR TECHNICIAN, agreed w/resident/PA/APPLIANCE REPAIR TECHNICIAN, discussed with family, reviewed EMR data (avail), discussed w/ nursing, discussed w/case mgmt Attending Assessment/Plan: Laboratory Tests 05/16/17 1513: Troponin I Pending 05/16/17 1225: Anion Gap 9, Estimated GFR 29 L, BUN/Creatinine Ratio 24.7, Glucose 261 H, Calcium 9.4, Magnesium 1.5 L, Total Bilirubin 0.3, AST 25, ALT 25, Alkaline Phosphatase 180 H, Troponin I 0.08, Hpa-A-Cylqrvorhca Pept 2840 H, Total Protein 6.7, Albumin 3.3 L, Globulin 3.4, Albumin/Globulin Ratio 1.0 L, CBC w Diff NO MAN DIFF REQ, RBC 3.31 L, MCV 87.2, MCH 29.2, RDW 14.8 H, MPV 8.8, Gran % 90.2 H, Lymphocytes % 4.2 L, Monocytes % 5.0, Eosinophils % 0.4, Basophils % 0.2, Absolute Granulocytes 11.8 H, Absolute Lymphocytes 0.5 L, Absolute Monocytes 0.7 H, Absolute Eosinophils 0.1, Absolute Basophils 0, PUBS MCHC 33.5 Vital Signs Date Time Temp Pulse Resp B/P B/P Pulse O2 O2 Flow FiO2 Mean Ox Delivery Rate 05/16 1504 97.2 80 14 164/74 100 Nasal 4.0L Cannula 05/16 1338 97.0 80 20 159/64 94 Nasal 4.0L Cannula 05/16 1244 97.0 85 22 168/79 92 Nasal 4.0L Cannula 05/16 1200 160/78 05/16 1137 98.5 107 24 233/95 80 Room Air 81 yr old female with pmh of Dementia, HTN , HLD< RA, SLE, CKD, HFPEF who lives with daughter. pt presented with c/c of sob and chest pain which started yesterday while at rest and got worse with exertion. Pt being admitted for acute diastolic chf exacerbation. Pt is non compliant with diet and does not restrict salt intake. Plan. got 40mg iv lasix in ER, will start on lasix 20mg iv q12h and will get cardiology consult and repeat an echo. will monitor on tele and will monitor strict I & O Chest pain - likely secondary to chf exacerbation. will get EKG and will do serial troponins. cardio consulted d/w pt and pts family at bedside the care plan.
--- NOTE | 2017-05-16 16:04 | Cons- Cardiology ---
General Information and HPI Consulting Request Date of Consult: 05/16/17 Requested By: Humberto Diaz MD Reason for Consult: Recurrent congestive heart failure Source of Information: patient, old records Exam Limitations: language barrier History of Present Illness: Kristal Hummel is a 81-year-old female who I initially saw in the hospital on 07/05/2015. She came in with a hypertensive crisis. She has longstanding hypertension, diabetes, obesity, and dyslipidemia. She was seen in the emergency department a couple of days prior to the admission with elevated blood pressure. She was given some Labetalol and she was discharged. She came back to the emergency room on 07/05/2015 with a headache and a blood pressure of 194/104. She was given amlodipine. Her blood pressure came down. She was watched in the hospital for 2 days. Her blood pressure improved. She had a negative cardiac workup. Her EKG just showed LVH. There was no CHF. We changed her to lisinopril 40 mg daily and amlodipine 10 mg daily and discharged her. Of note is that the patient was in the hospital in November of 2014 with lower extremity edema and generalized weakness. She was found to be somewhat hypokalemic. She had edema which was felt to be local. An echocardiogram showed normal left ventricular systolic function with some LVH, some sclerosis of the aortic valve with no stenosis, and no regurgitation. Right ventricular systolic pressure was 45 mm Hg. Kristal was seen in the office on 08/10/2015. At that time, her blood pressure was good, and I did not change her regimen. There was a question of what diuretic she was on at that time but we did not have the answer to because she did not bring in her medications, Kristal was rehospitalized on 10/29/2015 complaining of increasing leg swelling and shortness of breath. Her chest x-ray showed congestive heart failure. She responded nicely to diuresis. She had an echocardiogram which showed normal left ventricular systolic function, but abnormal diastolic function. She had elevated pulmonary artery pressure to 50 mmHg. She was sent out on Lasix in addition to her other medications, but apparently she continued taking hydrochlorothiazide as well, which we confirmed with her bottles. At her previous visit we stopped her hydrochlorothiazide and told her to continue taking Lasix. At her last office visit, which was in December 2016, there was also some confusion with her diuretics and again she did not bring in her bottles but she was clinically stable at that time. I asked her to come in in 3 months but she missed that appointment. The patient now states that she became short of breath last evening and came into the emergency room today. She denies any chest pain. She is had some mild ankle edema. She was found to have abnormal troponin and CHF on the chest x-ray. ProBNP was 2840. She claims to be compliant with medications. Allergies/Medications Allergies: Coded Allergies: Penicillins (Severe, ANAPHYLAXIS/RASH 10/29/15) Home Med List: Aspirin (Lo-Dose Aspirin EC) 81 MG TABLET.DR 1 TAB PO DAILY HEART/BLOOD ( Reported) Atorvastatin Calcium 40 MG TABLET 1 TAB PO DAILY CHOLESTEROL (Reported) Carvedilol 3.125 MG TABLET 1 TAB PO BID HEART/BP (Reported) Dulaglutide (Trulicity) 1.5 MG/0.5 ML PEN.INJCTR 1.5 MG SC QTHURS DM ( Reported) Ergocalciferol (Vitamin D2) (Vitamin D2) 50,000 UNIT CAPSULE 1 CAP PO QW VITAMIN SUPPORT (Reported) Gabapentin 300 MG CAPSULE 1 CAP PO DAILY NERVE PAIN (Reported) Hydrochlorothiazide 12.5 MG TABLET 1 TAB PO DAILY WATER RETENTION (Reported) Insulin Aspart Protam & Aspart (Novolog Mix 70-30 Flexpen Syrn) 100 UNIT/ML (70- 30) INSULN.PEN 25 UNITS SC BIDAC DIABETES TAKE 25 UNITS BEFORE BREAKFAST AND BEFORE DINNER CHECK BLOOD SUGAR BEFORE BREAKFAST AND DINNER AND KEEP RECORD Lisinopril 5 MG TABLET 1 TAB PO DAILY BP (Reported) Current Medications: Current Medications Sig/Hermelinda Start time Last Medication Dose Route Stop Time Status Admin Acetaminophen 650 MG Q6P PRN 05/16 1430 AC PO Acetaminophen 1,000 MG Q6P PRN 05/16 1430 AC IV Aspirin Buffered 81 MG DAILY 05/17 1000 AC PO Atorvastatin Calcium 40 MG 1700 05/17 1700 AC PO Carvedilol 3.125 MG BID 05/16 1448 AC PO Ciprofloxacin 400 MG ONCE ONE 05/16 1315 DC 05/16 IV 05/16 1316 1503 Doxycycline Hyclate 100 MG ONCE ONE 05/16 1315 CAN Sodium Chloride 100 ML IV 05/16 1420 Furosemide 20 MG 7:30 AM, & 4:30 PM 05/17 0730 AC IV Furosemide 20 MG 7:30 AM, & 4:30 PM 05/16 1630 DC IV Furosemide 0 .STK-MED ONE 05/16 1447 DC IV Furosemide 40 MG ONCE ONE 05/16 1315 DC 05/16 IV 05/16 1316 1502 Gabapentin 300 MG DAILY 05/16 1448 AC PO Heparin Sodium 5,000 UNIT Q8 05/16 2200 AC (Porcine) SC Insulin Aspart Prota 25 UNIT BID 05/16 2200 AC 70%/Aspart 30% SC Lisinopril 5 MG DAILY 05/16 1448 AC PO Magnesium Sulfate 1 GM Q2H 05/16 1545 AC Dextrose/Water 100 ML IV 05/16 1944 Oxycodone/ 2 TAB Q6P PRN 05/16 1430 AC Acetaminophen PO Review of Systems Review of Systems: She has no other complaints in the review of systems. Past History Travel History Traveled to [place] past 21 day No Medical History Neurological: EARLY DEMENTIA EENT: NONE Cardiovascular: hypertension, hyperlipidemia Respiratory: NONE Gastrointestinal: NONE Hepatic: NONE Renal: NONE Musculoskeletal: rheumatoid arthritis, LUPUS Psychiatric: depression Endocrine: diabetes Blood Disorders: anemia Cancer(s): NONE AUCTIONEER TOBACCO/Reproductive: NONE Other Medical Hx: LUPUS Surgical History Surgical History: hysterectomy Family History Relations & Conditions If Any: grandfather FH: prostate cancer DAUGHTER Blood clots FH: diabetes mellitus FHx: hypertension SON Blood clots Psychosocial History Who Do You Live With? self Services at Home: None Primary Language: Mongolian Functional Ability ADLs Independent: dressing, eating, toileting, bathing. Ambulation: walker IADLs Independent: shopping, housework, finances, food prep, telephone, transportation , medication admin. Exam & Diagnostic Data Vital Signs and I&O Vital Signs Date Time Temp Pulse Resp B/P B/P Pulse O2 O2 Flow FiO2 Mean Ox Delivery Rate 05/16 1504 97.2 80 14 164/74 100 Nasal 4.0L Cannula 05/16 1338 97.0 80 20 159/64 94 Nasal 4.0L Cannula 05/16 1244 97.0 85 22 168/79 92 Nasal 4.0L Cannula 05/16 1200 160/78 05/16 1137 98.5 107 24 233/95 80 Room Air Intake & Output 05/16 1600 05/16 0800 05/16 0000 05/15 1600 05/15 0805/15 0000 Intake Total Output Total Balance Patient 206 lb Weight Weight Estimated Measurement Method Physical Exam: A mildly obese female in no acute distress HEENT exam normal Chest clear Heart soft heart sounds, regular rhythm, no murmurs Abdomen benign Extremities trace edema Labs/Zaire Results: Laboratory Tests 05/16 05/16 1513 1225 Chemistry Sodium (137 - 145 mmol/L) 137 Potassium (3.5 - 5.1 mmol/L) 4.4 Chloride (98 - 107 mmol/L) 103 Carbon Dioxide (22 - 30 mmol/L) 25 Anion Gap (5 - 16) 9 BUN (7 - 17 mg/dL) 42 H Creatinine (0.5 - 1.0 mg/dL) 1.7 H Estimated GFR (>60 ml/min) 29 L BUN/Creatinine Ratio (7 - 25 %) 24.7 Glucose (65 - 99 mg/dL) 261 H Calcium (8.4 - 10.2 mg/dL) 9.4 Magnesium (1.6 - 2.3 mg/dL) 1.5 L Total Bilirubin (0.2 - 1.3 mg/dL) 0.3 AST (14 - 36 U/L) 25 ALT (9 - 52 U/L) 25 Alkaline Phosphatase (<127 U/L) 180 H Troponin I (< 0.11 ng/ml) 0.37 *H 0.08 [id number] Pept (<125 pg/mL) 2840 H Total Protein (6.3 - 8.2 g/dL) 6.7 Albumin (3.5 - 5.0 g/dL) 3.3 L Globulin (1.9 - 4.2 gm/dL) 3.4 Albumin/Globulin Ratio (1.1 - 2.2 %) 1.0 L Hematology CBC w Diff NO MAN DIFF REQ WBC (4.8 - 10.8 /CUMM) 13.1 H RBC (4.20 - 5.40 /CUMM) 3.31 L Hgb (12.0 - 16.0 G/DL) 9.7 L Hct (37 - 47 %) 28.9 L MCV (81.0 - 99.0 FL) 87.2 MCH (27.0 - 31.0 PG) 29.2 RDW (11.5 - 14.5 %) 14.8 H Plt Count (130 - 400 /CUMM) 279 MPV (7.4 - 10.4 FL) 8.8 Gran % (42.2 - 75.2 %) 90.2 H Lymphocytes % (20.5 - 51.1 %) 4.2 L Monocytes % (1.7 - 9.3 %) 5.0 Eosinophils % (0 - 5 %) 0.4 Basophils % (0.0 - 2.0 %) 0.2 Absolute Granulocytes (1.4 - 6.5 /CUMM) 11.8 H Absolute Lymphocytes (1.2 - 3.4 /CUMM) 0.5 L Absolute Monocytes (0.10 - 0.60 /CUMM) 0.7 H Absolute Eosinophils (0.0 - 0.7 /CUMM) 0.1 Absolute Basophils (0.0 - 0.2 /CUMM) 0 PUBS MCHC (33.0 - 37.0 G/DL) 33.5 Diagnostic Data EKG Results Initial EKG showed sinus tachycardia rate of about [address] and secondary [address] -T abnormalities. Repeat showed sinus rhythm at 80 with similar findings otherwise. CXR Results PATIENT: KRISTAL HUMMEL PRESENT AGE: 81 PATIENT ACCOUNT NO: [id number] : 37 LOCATION: [facility] ORDERING PHYSICIAN: James Wen MD SERVICE DATE: 05/16/17 EXAM TYPE: RAD - XRY-PORTABLE CHEST XRAY EXAMINATION: XR PORTABLE CHEST CLINICAL INFORMATION: Congestive heart failure. Pneumonia. COMPARISON: Chest radiograph dated 02/18/2017. TECHNIQUE: Portable frontal view of the chest was obtained. FINDINGS: There are low lung volumes. Cardiac silhouette appears enlarged. There is calcification of the thoracic aorta. There is pulmonary vascular congestion and bibasilar airspace opacities, likely representing pulmonary edema. I suspect there are small pleural effusions bilaterally. No pneumothorax. IMPRESSION: Cardiomegaly and pulmonary edema. I suspect there are small bilateral pleural effusions. DICTATED BY: Jairon Alvarez MD DATE/TIME DICTATED:05/16/171230 [facility] AGENT:MARTIN DATE/TIME TRANSCRIBED:05/16/171230 CONFIDENTIAL, DO NOT COPY WITHOUT APPROPRIATE AUTHORIZATION. <Electronically signed in Other Vendor System> SIGNED BY: Jairon Alvarez MD 05/16/17 0411 Assessment/Plan Assessment/Plan The patient is a 81-year-old female with recurrent congestive heart failure. She has preserved left ventricular systolic function and abnormal diastolic function on previous echocardiograms. She also has slightly positive troponin, probably type II MT, that is demand ischemiA type MT. It is possible that this was precipitated by medication compliance issues but this is not certain due to no medication bottles and the language barrier. For now I recommend intravenous diuresis and follow-up chest x-ray. She may need some additional medication adjustment which we will recommend as we go along. She also has Class 3 CKD which will need to be monitored closely. I don 't anticipate aggressive or interventional cardiac evaluation on this admission but we will of course do serial EKGs and enzymes and an echocardiogram to further evaluate potential additional testing and treatment. Consult Acknowledgment - Thank you for your consult request.
[2017-05-16 17:34] VITALS: BP 142/78
[2017-05-16 22:43] VITALS: BP 130/62
[2017-05-17 02:00] LABS: PTT 32 SEC (25-37)
[2017-05-17 06:51] VITALS: BP 128/74
--- NOTE | 2017-05-17 07:18 | PN- Housestaff ---
See Addendum Subjective Follow-up For: CHF Tele-Events Since Last Visit: NSR 70-80 Subjective: She was febrile to 101.3, trop trending up to 1.12. No CP or SOB now. Complains of sore throat. No other issues. Review of Systems Constitutional: Reports: no symptoms. EENTM: Reports: see HPI. Cardiovascular: Reports: no symptoms. Respiratory: Reports: no symptoms. Gastrointestinal: Reports: no symptoms. Genitourinary: Reports: no symptoms. Musculoskeletal: Reports: no symptoms. Skin: Reports: no symptoms. Neurological/Psychological: Reports: no symptoms. Hematologic/Endocrine: Reports: no symptoms. Immunologic/Allergic: Reports: no symptoms. Objective Last 24 Hrs of Vital Signs/I&O Vital Signs Date Time Temp Pulse Resp B/P B/P Pulse O2 O2 Flow FiO2 Mean Ox Delivery Rate 05/17 0651 100.1 81 20 128/74 96 Nasal Cannula 05/17 0525 99.0 05/17 0418 101.3 05/17 0149 100.5 05/17 0000 100 Nasal 4.0L Cannula 05/16 2259 101.3 / 2259 83 130/62 01/02 2243 101.3 83 20 130/62 96 Nasal Cannula / 1923 100.5 / 1919 100.5 100 01/ 1900 100 Nasal 4.0L Cannula / 1734 100.0 93 20 142/78 95 Nasal Cannula / 1635 97.2 80 14 164/74 /02 1635 97.2 80 14 164/74 /02 1504 97.2 80 14 164/74 100 Nasal 4.0L Cannula / 1424 81 Room Air / 1338 97.0 80 20 159/64 94 Nasal 4.0L Cannula / 1244 97.0 85 22 168/79 92 Nasal 4.0L Cannula /02 1200 160/78 01/02 1137 98.5 107 24 233/95 80 Room Air Intake & Output 05/17 0800 05/17 0000 /02 1600 Intake Total 297.5 200 Output Total 175 1750 Balance 122.5 -1550 Intake, IV 197.5 Intake, Oral 100 200 Output, Urine 175 1750 Patient 206 lb 206 lb Weight Weight Estimated Measurement Method Physical Exam General Appearance: Cooperative, No Acute Distress Skin: No Rashes HEENT: Atraumatic, PERRLA, EOMI Cardiovascular: Regular Rate, Normal S1, Normal S2 Lungs: mild crackles Abdomen: Normal Bowel Sounds, Soft, No Tenderness Neurological: Normal Speech Extremities: 1+ pitting edema b ilaterally Current Medications: Current Medications Sig/Hermelinda Start time Last Medication Dose Route Stop Time Status Admin Acetaminophen 650 MG Q6P PRN 05/16 1430 AC 05/17 PO 0418 Acetaminophen 1,000 MG Q6P PRN 05/16 1430 AC IV Aspirin Buffered 81 MG DAILY 05/17 1000 AC PO Atorvastatin Calcium 40 MG 1700 05/17 1700 AC PO Benzocaine/Menthol 1 DENIS Q2P PRN 05/17 0730 AC PO Carvedilol 3.125 MG BID 05/16 1448 AC 05/16 PO 1635 Ciprofloxacin 400 MG ONCE ONE 05/16 1315 DC 05/16 IV 05/16 1316 1503 Doxycycline Hyclate 100 MG ONCE ONE 05/16 1315 CAN Sodium Chloride 100 ML IV 05/16 1420 Furosemide 20 MG 7:30 AM, & 4:30 PM 05/17 0730 AC IV Furosemide 20 MG 7:30 AM, & 4:30 PM 05/16 1630 DC IV Furosemide 0 .STK-MED ONE 05/16 1447 DC IV Furosemide 40 MG ONCE ONE 05/16 1315 DC 05/16 IV 05/16 1316 1502 Gabapentin 0 .STK-MED ONE 05/16 1612 DC PO Gabapentin 300 MG DAILY 05/16 1448 AC 05/16 PO 1635 Heparin Sodium 5,606 UNIT ONCE ONE 05/17 0300 DC 05/17 (Porcine) IV 05/17 0301 0350 Heparin Sodium 5,000 UNIT Q8 05/16 2200 CAN (Porcine) SC Heparin Sodium 25,000 UNIT Q24H 05/16 1630 AC 05/16 (Porcine) IV 1755 Sodium Chloride 500 ML Insulin Aspart Prota 25 UNIT 0700,1700 05/17 0700 AC 70%/Aspart 30% SC Insulin Aspart Prota 25 UNIT BID 05/16 2200 DC 05/16 70%/Aspart 30% SC 1914 Lisinopril 5 MG DAILY 05/16 1448 AC 05/16 PO 1635 Magnesium Sulfate 1 GM Q2H 05/16 1545 DC 05/16 Dextrose/Water 100 ML IV 01/02 1944 1834 Oxycodone/ 2 TAB Q6P PRN 05/16 1430 AC Acetaminophen PO Last 24 Hrs of Lab/Zaire Results Last 24 Hrs of Labs/Mics: Laboratory Tests 05/17/17 0625: Troponin I Cancelled 05/17/17 0625: Sodium Pending, Potassium Pending, Chloride Pending, Carbon Dioxide Pending, Anion Gap Pending, BUN Pending, Creatinine Pending, BUN/Creatinine Ratio Pending , Troponin I Pending, APTT Pending, CBC w Diff Pending, WBC Pending, RBC Pending , Hgb Pending, Hct Pending, MCV Pending, MCH Pending, RDW Pending, Plt Count Pending, MPV Pending, PUBS MCHC Pending 05/17/17 0130: APTT 32 05/17/17 0110: Troponin I 1.12 *H 05/16/17 1917: Troponin I 0.61 *H 05/16/17 1513: Troponin I 0.37 *H 05/16/17 1225: Anion Gap 9, Estimated GFR 29 L, BUN/Creatinine Ratio 24.7, Glucose 261 H, Calcium 9.4, Magnesium 1.5 L, Total Bilirubin 0.3, AST 25, ALT 25, Alkaline Phosphatase 180 H, Troponin I 0.08, Eyg-U-Wdjsayqgitx Pept 2840 H, Total Protein 6.7, Albumin 3.3 L, Globulin 3.4, Albumin/Globulin Ratio 1.0 L, CBC w Diff NO MAN DIFF REQ, RBC 3.31 L, MCV 87.2, MCH 29.2, RDW 14.8 H, MPV 8.8, Gran % 90.2 H, Lymphocytes % 4.2 L, Monocytes % 5.0, Eosinophils % 0.4, Basophils % 0.2, Absolute Granulocytes 11.8 H, Absolute Lymphocytes 0.5 L, Absolute Monocytes 0.7 H, Absolute Eosinophils 0.1, Absolute Basophils 0, PUBS MCHC 33.5 Microbiology 05/17 637 LOWER RESP: Respiratory Culture - ORD 05/17 637 LOWER RESP: Gram Stain - ORD 05/16 1639 URINE ROUT: Urine Culture - RECD 05/16 1240 BLOOD: Blood Culture - RECD 05/16 1225 BLOOD: Blood Culture - RECD Assessment/Plan Assessment: Ms. Hummel is a 81-year-old female with past medical history of dementia, hypertension, hyperlipidemia, rheumatoid arthritis, systemic lupus erythematosus , chronic kidney disease followed by Dr. Kathleen, depression, diabetes mellitus, HFpEF followed by Dr. Yee who presents with dyspnea. 1. Acute hypoxic respiratory failure 2. Type II [place] 3. Acute decompensated Heart Failure 4. SIRS criteria without a source 5. Normocytic anemia 6. Hypomagnesemia 7. Acute on chronic kidney disease #Type II myocardial infarction: Patient likely had demand ischemia secondary to acute Sided heart failure. Troponins and started to trend down. -Telemetry monitoring -Appreciate cardiology recommendations -Stop heparin #Acute decompensated Heart Failure: Patient has history of heart failure with preserved ejection fraction, elevated BNP, respiratory desaturation and swollen legs. Most likely this represents decompensation heart failure. -TTE -Daily weights, I/O -Stop Furosemide 20mg IV BID -hold HCTZ -Follow-up repeat chest x-ray -Appreciate cardiology recommendations #SIRS criteria: She met 3/4 SIRS criteria (tachycardia, tachypnea, leukocytosis) on admission. Last night she had fever to 101.3. She has since defervesced. Is unclear if she is infected at this time. No clear source. She no longer has leukocytosis. -f/u Panculture -If she continues to spike fevers, start antibiotics #Acute on chronic kidney disease: Patient has baseline chronic kidney disease, creatinine 1.7. Today it is bumped up to 2.4. Likely secondary to increased diuretic dosing. -Holding furosemide as above -Avoid nephrotoxic medications #Hypomagnesemia: Mild and asymptomatic -Replenish electrolytes #Normocytic anemia: Patient's hemoglobin went from 9.7-7.8 on heparin drip. There is concern for bleeding at this time though there is no obvious source. -Guaiac stool -Stop heparin -Repeat CBC at 1400 #Chronic medical problems: Hyperlipidemia, CAD, hypertension, peripheral neuropathy, -Continue home atorvastatin, aspirin, lisinopril, gabapentin, carvedilol DVT prophylaxis with heparin Consistent carbohydrate 2 diet Full code Problem List: 1. CHF (congestive heart failure) Pain Ratin Pain Location: no pain Pain Goal: Remain pain free Pain Plan: see a/p Tomorrow's Labs & Rationales: cbc, bep
[2017-05-17 08:07] LABS: ABSOLUTE BASOPHIL COUNT 0 /CUMM (0.0-0.2); ABSOLUTE EOSINOPHIL COUNT 0 /CUMM (0.0-0.7); ABSOLUTE LYMPH COUNT 0.6 /CUMM (1.2-3.4); ABSOLUTE MONOCYTE COUNT 0.8 /CUMM (0.10-0.60); BASOPHIL % 0.1 % (0.0-2.0); EOSINOPHIL % 0 % (0-5); MEAN CORPUSCULAR HGB 29.1 PG (27.0-31.0); MEAN CORPUSCULAR HGB CONC 33.3 G/DL (33.0-37.0); MEAN CORPUSCULAR VOLUME 87.4 FL (81.0-99.0); MEAN PLATELET VOLUME 9.2 FL (7.4-10.4); RBC DISTRIBUTION WIDTH 14.6 % (11.5-14.5); RED BLOOD CELL CT 2.69 /CUMM (4.20-5.40); WHITE BLOOD CELL COUNT 9.4 /CUMM (4.8-10.8)
[2017-05-17 08:23] LABS: HEMATOCRIT 23.5 % (37-47)
[2017-05-17 08:49] LABS: PLATELET COUNT 228 /CUMM (130-400)
[2017-05-17 08:50] LABS: GRANULOCYTE % 85.5 % (42.2-75.2)
[2017-05-17 08:57] LABS: PTT > 120 SEC (25-37)
--- NOTE | 2017-05-17 12:35 | PN- Cardiology ---
Subjective Subjective: The patient seems improved today. She is not complaining of shortness of breath or chest pain. Troponin peaked at 1.12 and has declined. There are no EKG changes over baseline. Echocardiogram demonstrates good left ventricular systolic function with no regional wall motion abnormalities. Renal function has deteriorated somewhat with BUN 55 and creatinine 2.4. IV Lasix has been DC' d. She was febrile earlier and was started on antibiotics. Objective Vital Signs and I&Os Vital Signs Date Time Temp Pulse Resp B/P B/P Pulse O2 O2 Flow FiO2 Mean Ox Delivery Rate 05/17 1041 100.1 81 128/74 05/17 1040 100.1 81 128/74 / 0651 100.1 81 20 128/74 96 Nasal Cannula 05/17 0525 99.0 05/17 0418 101.3 05/17 0149 100.5 05/17 0000 100 Nasal 4.0L Cannula 05/16 2259 101.3 / 2259 83 130/62 / 2243 101.3 83 20 130/62 96 Nasal Cannula / 1923 100.5 / 1919 100.5 100 01/ 1900 100 Nasal 4.0L Cannula / 1734 100.0 93 20 142/78 95 Nasal Cannula / 1635 97.2 80 14 164/74 /02 1635 97.2 80 14 164/74 /02 1504 97.2 80 14 164/74 100 Nasal 4.0L Cannula / 1424 81 Room Air / 1338 97.0 80 20 159/64 94 Nasal 4.0L Cannula / 1244 97.0 85 22 168/79 92 Nasal 4.0L Cannula Intake & Output 05/17 1600 05/17 0800 05/17 0000 05/16 1600 05/16 0800 05/16 0000 Intake Total 297.5 200 Output Total 175 1750 Balance 122.5 -1550 Intake, IV 197.5 Intake, Oral 100 200 Output, Urine 175 1750 Patient 206 lb 206 lb Weight Weight Estimated Measurement Method Physical Exam: She is in no distress HEENT exam normal Chest a few rhonchi and mild wheezing Heart regular rhythm no murmurs No peripheral edema Current Medications: Current Medications Sig/Hermelinda Start time Last Medication Dose Route Stop Time Status Admin Acetaminophen 650 MG .STK-MED ONE 05/17 417 DC PO 01/03 0419 Acetaminophen 650 MG Q6P PRN 05/16 1430 AC 05/17 PO 0418 Acetaminophen 1,000 MG Q6P PRN 05/16 1430 AC IV Aspirin Buffered 81 MG DAILY 05/17 1000 AC 05/17 PO 1041 Atorvastatin Calcium 40 MG 1700 05/17 1700 AC PO Benzocaine/Menthol 1 DENIS Q2P PRN 05/17 0730 AC PO Carvedilol 3.125 MG BID 05/16 1448 AC 05/17 PO 1041 Ciprofloxacin 400 MG ONCE ONE 05/16 1315 DC 05/16 IV 05/16 1316 1503 Doxycycline Hyclate 100 MG ONCE ONE 05/16 1315 CAN Sodium Chloride 100 ML IV 05/16 1420 Furosemide 20 MG 7:30 AM, & 4:30 PM 05/17 0730 DC 05/17 IV 0948 Furosemide 20 MG 7:30 AM, & 4:30 PM 05/16 1630 DC IV Furosemide 0 .STK-MED ONE 05/16 1447 DC IV Furosemide 40 MG ONCE ONE 05/16 1315 DC 05/16 IV 05/16 1316 1502 Gabapentin 0 .STK-MED ONE 05/16 1612 DC PO Gabapentin 300 MG DAILY 05/16 1448 AC 05/17 PO 1040 Heparin Sodium 10,000 UNIT .STK-MED ONE 05/17 0347 DC (Porcine) IV 05/17 0348 Heparin Sodium 5,606 UNIT ONCE ONE 05/17 0300 DC 05/17 (Porcine) IV 05/17 0301 0350 Heparin Sodium 5,000 UNIT Q8 05/16 2200 CAN (Porcine) SC Heparin Sodium 25,000 UNIT Q24H 05/16 1630 DC 05/16 (Porcine) IV 1755 Sodium Chloride 500 ML Insulin Aspart Prota 25 UNIT 0700,1700 05/17 0700 AC 70%/Aspart 30% SC Insulin Aspart Prota 25 UNIT BID 05/16 2200 DC 05/16 70%/Aspart 30% SC 1914 Lisinopril 5 MG DAILY 05/16 1448 AC 05/17 PO 1040 Magnesium Sulfate 1 GM Q2H 05/16 1545 DC 05/16 Dextrose/Water 100 ML IV 05/16 1944 1834 Oxycodone/ 2 TAB Q6P PRN 05/16 1430 AC Acetaminophen PO Vancomycin HCl 1,250 MG ONCE ONE 05/17 0730 DC 05/17 Sodium Chloride 250 ML IV 05/17 0844 1041 Results Last 48 Hrs of Labs/Mics: Laboratory Tests 05/17/17 1110: Urinalysis MOD H, Urine Color YEL, Urine Clarity HAZY H, Urine pH 6.0, Ur Specific [place] 1.025, Urine Protein 100 H, Urine Ketones NEG, Urine Nitrite NEG, Urine Bilirubin NEG, Urine Urobilinogen 0.2, Ur Leukocyte Esterase NEG, Ur Microscopic SEDIMENT EXAMINED, Urine RBC 25-50 H, Urine WBC 1-3 H, Ur Epithelial Cells FEW, Urine Bacteria MOD H, Granular Casts FEW H, Urine Mucus FEW, Urine Hemoglobin MOD H, Urine Glucose NEG 05/17/17 0625: Troponin I Cancelled 05/17/17 0625: Anion Gap 10, Estimated GFR 19 L, BUN/Creatinine Ratio 22.9, Phosphorus 4.4, Magnesium 2.3, Troponin I 0.98 *H, APTT > 120 *H, CBC w Diff NO MAN DIFF REQ, RBC 2.69 L, MCV 87.4, MCH 29.1, RDW 14.6 H, MPV 9.2, Gran % 85.5 H, Lymphocytes % 5.9 L, Monocytes % 8.5, Eosinophils % 0, Basophils % 0.1, Absolute Granulocytes 8.0 H, Absolute Lymphocytes 0.6 L, Absolute Monocytes 0.8 H, Absolute Eosinophils 0, Absolute Basophils 0, PUBS MCHC 33.3 05/17/17 0130: APTT 32 05/17/17 0110: Troponin I 1.12 *H 05/16/17 1917: Troponin I 0.61 *H 05/16/17 1513: Troponin I 0.37 *H 05/16/17 1225: Anion Gap 9, Estimated GFR 29 L, BUN/Creatinine Ratio 24.7, Glucose 261 H, Calcium 9.4, Magnesium 1.5 L, Total Bilirubin 0.3, AST 25, ALT 25, Alkaline Phosphatase 180 H, Troponin I 0.08, Mvo-V-Fnxyciunbat Pept 2840 H, Total Protein 6.7, Albumin 3.3 L, Globulin 3.4, Albumin/Globulin Ratio 1.0 L, CBC w Diff NO MAN DIFF REQ, RBC 3.31 L, MCV 87.2, MCH 29.2, RDW 14.8 H, MPV 8.8, Gran % 90.2 H, Lymphocytes % 4.2 L, Monocytes % 5.0, Eosinophils % 0.4, Basophils % 0.2, Absolute Granulocytes 11.8 H, Absolute Lymphocytes 0.5 L, Absolute Monocytes 0.7 H, Absolute Eosinophils 0.1, Absolute Basophils 0, PUBS MCHC 33.5 Recent Imaging Studies: CONCLUSIONS Normal global left ventricular size, wall thickness, systolic function with no obvious regional wall motion abnormalities. Left ventricular ejection fraction is estimated at >65 %. Abnormal relaxation filling pattern of the left ventricle for age (stage 1 diastolic dysfunction). Mild to moderate left atrial dilatation. Mild thickening/calcification of the mitral valve leaflets. Moderate mitral annular calcification. Qvdl-es-pudwghnu mitral regurgitation. Focal thickening of the aortic valve cusps. No aortic stenosis. Cmxv-ou-crafkitj tricuspid regurgitation. Right ventricular systolic pressure estimated to be elevated at 60- 65 mmHg. Moderate to severe pulmonary hypertension. The aortic arch and great vessels are not well seen. Sukumar Yee M.D. (Electronically Signed) Final Date: 17 May 2017 12:57 PATIENT: ALEJANDRINA CARLOS PRESENT AGE: 81 PATIENT ACCOUNT NO: [id number] : 37 LOCATION: O ORDERING PHYSICIAN: James Osullivan MD SERVICE DATE: 05/17/17 EXAM TYPE: RAD - XRY-CHEST XRAY, TWO VIEWS EXAMINATION: XR CHEST CLINICAL INFORMATION: Edema. Assess for congestive heart failure. COMPARISON: Chest x-ray 05/16/2017. TECHNIQUE: Frontal and lateral views of the chest were obtained. FINDINGS: The patient is rotated LPO. The lung moralez are moderately well-expanded. The cardiac silhouette is enlarged but stable. There are streaky opacities in the lungs bilaterally, more extensive on the right, consistent with interstitial edema. There may be a left pleural effusion. The aortic arch is calcified and unfolded. There are no acute osseous findings. There are degenerative changes around the right shoulder joint. There is hyperkyphosis in the lumbar spine, but bone detail is poorly evaluated on the available images. IMPRESSION: 1. The study redemonstrates prominence of the cardiac silhouette and increased interstitial markings consistent with pulmonary edema. DICTATED BY: Connor Caballero MD DATE/TIME DICTATED:05/17/171244 BILLING CLERK:MARTIN DATE/TIME TRANSCRIBED:05/17/171244 CONFIDENTIAL, DO NOT COPY WITHOUT APPROPRIATE AUTHORIZATION. <Electronically signed in Other Vendor System> SIGNED BY: Connor Caballero MD 05/17/17 2418 Assessment/Plan Assessment/Plan The patient seems better clinically. Her chest x-ray looks a little better to me although is read is similar. Her renal function has deteriorated slightly. She may have some infectious component as demonstrated by fever. Her white count was also elevated on admission. Her hematocrit has decreased also. Her troponin peaked at just over 1 but there are no wall motion abnormalities on her echocardiogram or EKG changes. This is a type II myocardial infarction based on no chest pain and no evidence of a coronary event. Therefore we'll treat her conservatively especially considering her other abnormalities at this time. There are no plans for cardiac catheterization. I recommend holding diuretics for now. Heparin can be discontinued. Continue telemetry? Yes
--- NOTE | 2017-05-17 12:55 | RADIOLOGY REPORT ---
EXAMINATION: XR CHEST CLINICAL INFORMATION: Edema. Assess for congestive heart failure. COMPARISON: Chest x-ray 05/16/2017. TECHNIQUE: Frontal and lateral views of the chest were obtained. FINDINGS: The patient is rotated LPO. The lung moralez are moderately well-expanded. The cardiac silhouette is enlarged but stable. There are streaky opacities in the lungs bilaterally, more extensive on the right, consistent with interstitial edema. There may be a left pleural effusion. The aortic arch is calcified and unfolded. There are no acute osseous findings. There are degenerative changes around the right shoulder joint. There is hyperkyphosis in the lumbar spine, but bone detail is poorly evaluated on the available images. IMPRESSION: 1. The study redemonstrates prominence of the cardiac silhouette and increased interstitial markings consistent with pulmonary edema.
--- NOTE | 2017-05-17 12:57 | ECHOCARDIOGRAM REPORT ---
ALEJANDRINA CARLOS Age: 81 : 1935 Gender: F Exam Date: 05/16/2017 19:31 Exam Location: [address] Ht (in): 63 Wt (lb): 206 BSA: 2.08 BP: 164 / 74 Ordering Physician: Adolfo Hopper MD Referring Physician: Sukumar Yee MD Chief, SoC Technologist: Elise Miller [facility] Room Number: 180-02 Indications: HEART FAILURE Rhythm: Sinus Technical Quality: Fair FINDINGS Left Ventricle Normal global left ventricular size, wall thickness, systolic function with no obvious regional wall motion abnormalities. Left ventricular ejection fraction is estimated at >65 %. Abnormal relaxation filling pattern of the left ventricle for age (stage 1 diastolic dysfunction). Right Ventricle The right ventricle is normal in size and function. Right Atrium The right atrium is normal in size. Left Atrium Mild to moderate left atrial dilatation. Mitral Valve Mild thickening/calcification of the mitral valve leaflets. Moderate mitral annular calcification. Iebj-on-aqmwrjax mitral regurgitation. Aortic Valve Focal thickening of the aortic valve cusps. No aortic stenosis. No aortic regurgitation. Tricuspid Valve Tricuspid valve is normal in structure and function. Mild-to- moderate tricuspid regurgitation. Right ventricular systolic pressure estimated to be elevated at 60-65 mmHg. Moderate to severe pulmonary hypertension. Pulmonic Valve Structurally normal pulmonic valve. There is no pulmonic regurgitation. Pericardium Normal pericardium without effusion. No pleural effusion. Great Vessels Normal aortic root dimension. The aortic arch and great vessels are not well seen. CONCLUSIONS Normal global left ventricular size, wall thickness, systolic function with no obvious regional wall motion abnormalities. Left ventricular ejection fraction is estimated at >65 %. Abnormal relaxation filling pattern of the left ventricle for age (stage 1 diastolic dysfunction). Mild to moderate left atrial dilatation. Mild thickening/calcification of the mitral valve leaflets. Moderate mitral annular calcification. Kccz-gp-kkpusgai mitral regurgitation. Focal thickening of the aortic valve cusps. No aortic stenosis. Mbdt-oq-tpfrkmdw tricuspid regurgitation. Right ventricular systolic pressure estimated to be elevated at 60- 65 mmHg. Moderate to severe pulmonary hypertension. The aortic arch and great vessels are not well seen. Sukumar Yee M.D. (Electronically Signed) Final Date: 17 May 2017 12:57 MEASUREMENTS (Male / Female) Normal Values 2D ECHO LV Diastolic Diameter PLAX 3.8 cm 4.2 - 5.9 / 3.9 - 5.3 cm LV Systolic Diameter PLAX 2.3 cm 2.1 - 4.0 cm LV Fractional Shortening PLAX 39.5 % 25 - 46 % LV Ejection Fraction 2D Teich 70.8 % IVS Diastolic Thickness 1.0 cm LVPW Diastolic Thickness 1.1 cm LV Relative Wall Thickness 0.6 RV Internal Dim ED PLAX 2.8 cm 1.9 - 3.8 cm LVOT Diameter 1.9 cm Aortic Root Diameter 2.8 cm LA Systolic Diameter LX 3.5 cm 3.0 - 4.0 / 2.7 - 3.8 cm LA Volume 66.0 cm 18 - 58 / 22 - 52 cm Ascending Aorta Diameter 3.1 cm DOPPLER AV Peak Velocity 198.0 cm/s AV Peak Gradient 15.7 mmHg AV Mean Velocity 130.0 cm/s AV Mean Gradient 8.0 mmHg AV Velocity Time Integral 36.5 cm LVOT Peak Velocity 141.0 cm/s LVOT Peak Gradient 8.0 mmHg LVOT Mean Velocity 99.1 cm/s LVOT Mean Gradient 4.0 mmHg LVOT Velocity Time Integral 27.2 cm LVOT Stroke Volume 77.1 cm AV Area Cont Eq vti 2.1 cm AV Area Cont Eq pk 2.0 cm MV Peak Velocity 192.5 cm/s MV Peak Gradient 14.8 mmHg MV Mean Velocity 126.5 cm/s MV Mean Gradient 8.0 mmHg Mitral E Point Velocity 167.0 cm/s Mitral A Point Velocity 180.0 cm/s Mitral E to A Ratio 0.9 MV PHT Velocity 193.5 cm/s MV Deceleration Smyth 1106.0 cm/s MV Pressure Half Time 52.5 ms MV Area PHT 4.2 cm MV Deceleration Time 135.0 ms TR Peak Velocity 376.0 cm/s TR Peak Gradient 56.6 mmHg Right Atrial Pressure 5.0 mmHg Pulmonary Artery Systolic Pressu 61.6 mmHg Right Ventricular Systolic Press 61.6 mmHg PV Peak Velocity 113.0 cm/s PV Peak Gradient 5.1 mmHg PV Mean Velocity 75.3 cm/s PV Mean Gradient 3.0 mmHg PV Velocity Time Integral 16.9 cm LV E' Lateral Velocity 6.7 cm/s Mitral E to LV E' Lateral Ratio 24.8 LV E' Septal Velocity 7.8 cm/s Mitral E to LV E' Septal Ratio 21.4
[2017-05-17 14:17] VITALS: BP 132/62
[2017-05-17 16:40] LABS: ABSOLUTE BASOPHIL COUNT 0 /CUMM (0.0-0.2); ABSOLUTE EOSINOPHIL COUNT 0 /CUMM (0.0-0.7); ABSOLUTE GRANULOCYTE CT 7.7 /CUMM (1.4-6.5); ABSOLUTE LYMPH COUNT 0.6 /CUMM (1.2-3.4); ABSOLUTE MONOCYTE COUNT 0.9 /CUMM (0.10-0.60); BASOPHIL % 0.2 % (0.0-2.0); EOSINOPHIL % 0.1 % (0-5); HEMATOCRIT 23.5 % (37-47); MEAN CORPUSCULAR VOLUME 87.8 FL (81.0-99.0); RBC DISTRIBUTION WIDTH 15.3 % (11.5-14.5); RED BLOOD CELL CT 2.68 /CUMM (4.20-5.40); WHITE BLOOD CELL COUNT 9.2 /CUMM (4.8-10.8)
[2017-05-17 17:18] LABS: PLATELET COUNT 171 /CUMM (130-400)
[2017-05-17 17:19] LABS: GRANULOCYTE % 84.4 % (42.2-75.2)
--- NOTE | 2017-05-17 20:42 | CT SCAN REPORT ---
EXAMINATION: CT CHEST WITHOUT CONTRAST CLINICAL INFORMATION: High-grade fevers. Acute hypoxic failure. COMPARISON: Chest x-ray 05/17/2017 TECHNIQUE: Multidetector volumetric CT imaging of the chest was done. Axial MIP volume rendering provided. Sagittal and coronal reformatted images were obtained. DLP: 360.22 mGy-cm FINDINGS: LUNGS: Subpleural reticular opacities at lung bases. There are scattered hazy groundglass opacities bilaterally mostly at upper lobes right greater than left. MEDIASTINUM: No mediastinal mass. There is a small hiatal hernia. There is vascular calcification of coronary arteries of the mitral valve annulus and the thoracic aorta. PLEURA: There are small bilateral pleural effusions. AXILLA: No lymphadenopathy. UPPER ABDOMEN: Unremarkable. OSSEOUS STRUCTURES: Degenerative change of spine with multilevel disc height narrowing vacuum disc phenomena endplate spurring of the vertebrae. IMPRESSION: 1. Interstitial changes at lung bases with groundglass opacities at upper lobes. Groundglass opacities are likely acute, inflammatory or infectious in etiology. The interstitial opacities could be acute or chronic. 2. Small bilateral pleural effusions.
[2017-05-17 22:08] VITALS: BP 172/80
[2017-05-17 22:30] VITALS: BP 140/70
[2017-05-18 06:00] VITALS: BP 128/76
--- NOTE | 2017-05-18 07:34 | PN- Housestaff ---
See Addendum Subjective Follow-up For: Influenza, CHF Subjective: Flu was positive last night. She was febrile to 101.3, received acetaminophen. She is still complaining of sore throat but no CP or SOB. No other complaints. Review of Systems Constitutional: Reports: no symptoms. EENTM: Reports: see HPI. Cardiovascular: Reports: no symptoms. Respiratory: Reports: no symptoms. Gastrointestinal: Reports: no symptoms. Genitourinary: Reports: no symptoms. Musculoskeletal: Reports: no symptoms. Skin: Reports: no symptoms. Neurological/Psychological: Reports: no symptoms. Hematologic/Endocrine: Reports: no symptoms. Immunologic/Allergic: Reports: no symptoms. Objective Last 24 Hrs of Vital Signs/I&O Vital Signs Date Time Temp Pulse Resp B/P B/P Pulse O2 O2 Flow FiO2 Mean Ox Delivery Rate 05/18 0600 98.7 76 22 128/76 95 Nasal 3.0L Cannula 05/18 0239 100.5 05/18 0102 103.2 28 05/18 0000 Nasal 4.0L Cannula 05/17 2239 83 140/70 05/17 2230 83 26 140/70 05/17 2208 101.3 91 22 172/80 97 Nasal 3.0L Cannula 05/17 1852 101.9 05/17 1600 95 Nasal 2.0L Cannula 05/17 1417 101.6 87 20 132/62 97 Nasal 3.0L Cannula 05/17 1413 101.6 05/17 1041 100.1 81 128/74 05/17 1040 100.1 81 128/74 05/17 0800 96 Nasal 2.0L Cannula Intake & Output 05/18 0800 05/18 0000 05/17 1600 Intake Total 400 100 480 Output Total 350 300 350 Balance 50 -200 130 Intake, IV 300 Intake, Oral 100 100 480 Number 1 Bowel Movements Output, Urine 350 300 350 Physical Exam General Appearance: Alert, Oriented X3, Cooperative, No Acute Distress Skin: No Rashes Sepsis Skin Exam (color): Normal for Ethnicity Cardiovascular: Regular Rate, Normal S1, Normal S2 Lungs: crackles and wheezing bilaterally Abdomen: Normal Bowel Sounds, Soft, No Tenderness Neurological: Normal Speech Extremities: No Edema, Normal Pulses, No Tenderness/Swelling Current Medications: Current Medications Sig/Hermelinda Start time Last Medication Dose Route Stop Time Status Admin Acetaminophen 975 MG ONCE ONE 05/17 1415 DC 05/17 PO 05/17 1416 1413 Acetaminophen 650 MG Q6P PRN 05/16 1430 DC 05/17 PO 0418 Acetaminophen 1,000 MG Q6P PRN 05/16 1430 AC IV Aspirin Buffered 81 MG DAILY 05/17 1000 AC 05/17 PO 1041 Atorvastatin Calcium 40 MG 1700 05/17 1700 AC 05/17 PO 1703 Benzocaine/Menthol 1 DENIS Q2P PRN 05/17 0730 AC PO Carvedilol 3.125 MG BID 05/16 1448 AC 05/17 PO 2239 Furosemide 40 MG .STK-MED ONE 05/17 0945 DC IV 05/17 0946 Furosemide 20 MG 7:30 AM, & 4:30 PM 05/17 0730 DC 05/17 IV 0948 Gabapentin 300 MG DAILY 05/16 1448 AC 05/17 PO 1040 Heparin Sodium 25,000 UNIT Q24H 05/16 1630 DC 05/16 (Porcine) IV 1755 Sodium Chloride 500 ML Insulin Aspart 3 UNITS .STK-MED ONE 05/17 1336 DC SC 05/17 1337 Insulin Aspart Prota 25 UNIT 0700,1700 05/17 0700 AC 05/18 70%/Aspart 30% SC 0603 Lisinopril 5 MG DAILY 05/16 1448 AC 05/17 PO 1040 Oseltamivir Phosphate 75 MG BID 05/18 1000 UNVr PO 05/21 2214 Oseltamivir Phosphate 30 MG DAILY 05/17 2215 DC 05/17 PO 05/21 2214 2239 Oxycodone/ 2 TAB Q6P PRN 05/16 1430 AC 05/18 Acetaminophen PO 0152 Sodium Chloride 1,000 ML ONCE ONE 05/18 0130 AC 05/18 IV 05/18 1449 0146 Vancomycin HCl 1,250 MG ONCE ONE 05/17 0730 DC 05/17 Sodium Chloride 250 ML IV 05/17 0844 1041 Last 24 Hrs of Lab/Zaire Results Last 24 Hrs of Labs/Mics: Laboratory Tests 05/18/17 0635: Sodium Pending, Potassium Pending, Chloride Pending, Carbon Dioxide Pending, Anion Gap Pending, BUN Pending, Creatinine Pending, BUN/Creatinine Ratio Pending , CBC w Diff Pending, WBC Pending, RBC Pending, Hgb Pending, Hct Pending, MCV Pending, MCH Pending, RDW Pending, Plt Count Pending, MPV Pending, PUBS MCHC Pending 05/17/17 1600: CBC w Diff NO MAN DIFF REQ, RBC 2.68 L, MCV 87.8, MCH 29.0, RDW 15.3 H, MPV 10.0, Gran % 84.4 H, Lymphocytes % 6.0 L, Monocytes % 9.3, Eosinophils % 0.1, Basophils % 0.2, Absolute Granulocytes 7.7 H, Absolute Lymphocytes 0.6 L, Absolute Monocytes 0.9 H, Absolute Eosinophils 0, Absolute Basophils 0, PUBS MCHC 33.0 05/17/17 1110: Urinalysis MOD H, Urine Color YEL, Urine Clarity HAZY H, Urine pH 6.0, Ur Specific [place] 1.025, Urine Protein 100 H, Urine Ketones NEG, Urine Nitrite NEG, Urine Bilirubin NEG, Urine Urobilinogen 0.2, Ur Leukocyte Esterase NEG, Ur Microscopic SEDIMENT EXAMINED, Urine RBC 25-50 H, Urine WBC 1-3 H, Ur Epithelial Cells FEW, Urine Bacteria MOD H, Granular Casts FEW H, Urine Mucus FEW, Urine Hemoglobin MOD H, Urine Glucose NEG Microbiology 05/17 1853 NASOPHARYN: Influenza Virus A & B Rapid Smear - COMP INFLUENZA TYPE A 05/17 1315 LOWER RESP: Respiratory Culture - CAN Cancelled: NUMBER OF SQUAMOUS CELLS INDICATES POOR QUALITY SPECIMEN 05/17 1315 LOWER RESP: Gram Stain - CAN Cancelled: NUMBER OF SQUAMOUS CELLS INDICATES POOR QUALITY SPECIMEN 05/17 1110 URINE ROUT: Urine Culture - RECD 05/17 1100 BLOOD: Blood Culture - RECD 05/17 1050 BLOOD: Blood Culture - RECD Assessment/Plan Assessment: Ms. Hummel is a 81-year-old female with past medical history of dementia, hypertension, hyperlipidemia, rheumatoid arthritis, systemic lupus erythematosus , chronic kidney disease followed by Dr. Kathleen, depression, diabetes mellitus, HFpEF followed by Dr. Yee who presents with dyspnea. 1. Acute hypoxic respiratory failure 2. Type II DE 3. Acute decompensated Heart Failure 4. Sepsis secondary to influenza 5. Normocytic anemia 6. Hypomagnesemia 7. Acute on chronic kidney disease 8. Acute hyponatremia #Sepsis secondary to influenza: She met 3/4 SIRS criteria (tachycardia, tachypnea, leukocytosis) on admission. Flu swab was positive for influenza, indicating source of her sepsis. She had another fever last night and was treated with acetaminophen. CT chest was also done which showed groundglass opacities and small bilateral pleural effusions. -Continue renally dosed oseltamivir -Follow-up viral culture #Type II myocardial infarction: Patient likely had demand ischemia secondary to acute Sided heart failure. Troponins and started to trend down. -Telemetry monitoring -Appreciate cardiology recommendations -Stop heparin #Acute decompensated Heart Failure: Patient has history of heart failure with preserved ejection fraction. Repeat echocardiogram shows EF greater than 65%, stage I diastolic dysfunction, and right ventricular pressure 6060 5 mmHg. Given that her creatinine continues to trend upwards, we are holding diuresis and will give her some gentle hydration as below. -hold HCTZ -Follow-up repeat chest x-ray -Appreciate cardiology recommendations #Acute on chronic kidney disease: Patient has baseline chronic kidney disease, creatinine 1.7. It is now up trended to 3.1. This is likely prerenal azotemia in the setting of diuresis. However she also has RBCs in her urine and her hemoglobin is dropping despite the diuresis. She was -2.1 L after the diuresis and is now on 75 mL an hour of normal saline since 1 AM. We will increase this. -Holding furosemide as above -Avoid nephrotoxic medications -1 L normal saline, 100 mL per hour -Nephrology consult -Repeat BEP at 1600 #Hypomagnesemia: Resolved. #Normocytic anemia: Patient's hemoglobin went from 9.7-7.8 on heparin drip. There is concern for bleeding at this time though there is no obvious source. Repeat CBC yesterday afternoon was stable. Today hemoglobin is 7.4. LDH is normal. -Guaiac stool -Hemoglobin goal greater than 7.5. -Transfuse 1 unit of blood after type and screen -Repeat CBC at 1600 #Acute hyponatremia: Sodium is now 131 from 135 yesterday. She is asymptomatic. -Hydration as above -Continue to monitor #Chronic medical problems: Hyperlipidemia, CAD, hypertension, peripheral neuropathy, -Continue home atorvastatin, aspirin, lisinopril, gabapentin, carvedilol DVT prophylaxis with heparin Consistent carbohydrate 2 diet Full code Problem List: 1. Influenza Pain Ratin Pain Location: no pain Pain Goal: Remain pain free Pain Plan: see a/p Tomorrow's Labs & Rationales: cbc, bep
[2017-05-18 08:08] LABS: ABSOLUTE BASOPHIL COUNT 0 /CUMM (0.0-0.2); ABSOLUTE EOSINOPHIL COUNT 0 /CUMM (0.0-0.7); ABSOLUTE GRANULOCYTE CT 5.5 /CUMM (1.4-6.5); ABSOLUTE LYMPH COUNT 0.7 /CUMM (1.2-3.4); ABSOLUTE MONOCYTE COUNT 0.7 /CUMM (0.10-0.60); BASOPHIL % 0.3 % (0.0-2.0); EOSINOPHIL % 0 % (0-5); GRANULOCYTE % 79.2 % (42.2-75.2); MEAN CORPUSCULAR HGB 29.5 PG (27.0-31.0); MEAN CORPUSCULAR HGB CONC 33.8 G/DL (33.0-37.0); MEAN CORPUSCULAR VOLUME 87.3 FL (81.0-99.0); MEAN PLATELET VOLUME 9.2 FL (7.4-10.4); PLATELET COUNT 187 /CUMM (130-400); RBC DISTRIBUTION WIDTH 14.9 % (11.5-14.5); RED BLOOD CELL CT 2.51 /CUMM (4.20-5.40); WHITE BLOOD CELL COUNT 6.9 /CUMM (4.8-10.8)
[2017-05-18 08:36] LABS: HEMATOCRIT 21.9 % (37-47)
[2017-05-18 14:25] VITALS: BP 10/58
--- NOTE | 2017-05-18 15:16 | Cons- Nephrology ---
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 She now comes in because she developed shortness of breath while at home with some associated chest pain radiating to her shoulder and jaw. There has also been a nonproductive cough but no nausea vomiting, diaphoresis, fever, palpitations, abdominal pain, diarrhea, or urinary tract symptoms. Her chest x-ray was read as possible CHF/pulmonary edema but she also has a positive swab for influenza A. Troponin levels have been elevated peaking at 1.12. EKG showed no acute changes. Echocardiogram showed normal LV systolic function. She was treated with a dose of IV Lasix and was started on Tamiflu. Her creatinine on admission was 1.7 rising to 2.4 yesterday and 3.1 today prompting this consultation request. Her intravenous Lasix was discontinued and she was started on IV fluids early this morning. Her output on May 16 was 1750 mL an yesterday 825 mL. She does not appear to have been exposed to any parenteral contrast, NSAIDs or antibiotics. She was on a low dose HAWK inhibitor as an outpatient which has been continued. Of additional note is the fact that her hemoglobin has been falling and that urinalysis showed 25-50 RBCs per HPF. Past medical history is positive for CK D stage IV secondary to diabetes mellitus, retinopathy, hypertension, hyperlipidemia, MGUS, anemia. Medications: See below Allergies: Penicillin (anaphylaxis) Family history: Positive for prostate cancer in her father and diabetes mellitus and hypertension in other family members as well as "blood clots" and a daughter and a son. No family history for kidney disease. Allergies/Medications Allergies: Coded Allergies: Penicillins (Severe, ANAPHYLAXIS/RASH 10/29/15) Home Med List: Aspirin (Lo-Dose Aspirin EC) 81 MG TABLET.DR 1 TAB PO DAILY HEART/BLOOD ( Reported) Atorvastatin Calcium 40 MG TABLET 1 TAB PO DAILY CHOLESTEROL (Reported) Carvedilol 3.125 MG TABLET 1 TAB PO BID HEART/BP (Reported) Dulaglutide (Trulicity) 1.5 MG/0.5 ML PEN.INJCTR 1.5 MG SC QTHURS DM ( Reported) Ergocalciferol (Vitamin D2) (Vitamin D2) 50,000 UNIT CAPSULE 1 CAP PO QW VITAMIN SUPPORT (Reported) Gabapentin 300 MG CAPSULE 1 CAP PO DAILY NERVE PAIN (Reported) Hydrochlorothiazide 12.5 MG TABLET 1 TAB PO DAILY WATER RETENTION (Reported) Insulin Aspart Protam & Aspart (Novolog Mix 70-30 Flexpen Syrn) 100 UNIT/ML (70- 30) INSULN.PEN 25 UNITS SC BIDAC DIABETES TAKE 25 UNITS BEFORE BREAKFAST AND BEFORE DINNER CHECK BLOOD SUGAR BEFORE BREAKFAST AND DINNER AND KEEP RECORD Lisinopril 5 MG TABLET 1 TAB PO DAILY BP (Reported) Review of Systems Review of Systems: Constitutional: Reports: see HPI. EENTM: Reports: no symptoms. Cardiovascular: Reports: see HPI. Respiratory: Reports: see HPI. GI: Reports: no symptoms. Genitourinary: Reports: no symptoms. Musculoskeletal: Reports: no symptoms. Skin: Reports: no symptoms. Neurological/Psychological: Reports: no symptoms. Hematologic/Endocrine: Reports: no symptoms. Immunologic/Allergic: Reports: no symptoms. All Other Systems: Reviewed and Negative Past History Travel History Traveled to [place] past 21 day No Medical History Blood Transfusion Hx: No Neurological: EARLY DEMENTIA EENT: NONE Cardiovascular: hypertension, hyperlipidemia Respiratory: NONE Gastrointestinal: NONE Hepatic: NONE Renal: NONE Musculoskeletal: rheumatoid arthritis, LUPUS Psychiatric: depression Endocrine: diabetes Blood Disorders: anemia Cancer(s): NONE BUSINESS LIAISON OFFICER/Reproductive: NONE Other Medical Hx: LUPUS Surgical History Surgical History: hysterectomy Family History Relations & Conditions If Any: grandfather FH: prostate cancer DAUGHTER Blood clots FH: diabetes mellitus FHx: hypertension SON Blood clots Psychosocial History Where Do You Live? Home Who Do You Live With? self Services at Home: None Primary Language: English Smoking Status: Former Smoker Functional Ability ADLs Independent: dressing, eating, toileting, bathing. Ambulation: walker IADLs Independent: shopping, housework, finances, food prep, telephone, transportation , medication admin. Exam & Diagnostic Data Vital Signs and I&O Vital Signs Date Time Temp Pulse Resp B/P B/P Pulse O2 O2 Flow FiO2 Mean Ox Delivery Rate 05/18 1425 99.3 70 20 10/58 Nasal 3.0L Cannula 05/18 0954 76 126/62 05/18 0954 76 126/62 05/18 0800 Nasal 3.0L Cannula 05/18 0600 98.7 76 22 128/76 95 Nasal 3.0L Cannula 05/18 0239 100.5 05/18 0102 103.2 28 05/18 0000 Nasal 4.0L Cannula 05/17 2239 83 140/70 05/17 2230 83 26 140/70 05/17 2208 101.3 91 22 172/80 97 Nasal 3.0L Cannula 05/17 1852 101.9 05/17 1600 95 Nasal 2.0L Cannula Intake & Output 05/18 1600 05/18 0400 05/17 1600 05/17 0400 05/16 1600 05/16 0400 Intake Total 1000 100 777.5 200 Output Total 850 719 405 1704 Balance 150 -200 252.5 -1550 Intake, IV 900 197.5 Intake, Oral 100 100 580 200 Number 1 Bowel Movements Output, 300 Emesis Output, Urine 550 160 060 5850 Patient 206 lb 206 lb Weight Weight Estimated Measurement Method Physical Exam: General: Well-developed, elderly white female in [facility]; speaks English with little [place]ese Skin: No rash or jaundice HEENT: Conjunctivae pale, sclerae anicteric, mucous membranes dry Neck: Without masses or thyromegaly, no supraclavicular or cervical adenopathy Chest: Scattered rales and rhonchi Heart: Regular rate and rhythm without S3 or rub Abdomen: Obese, soft and nontender without palpable masses or organomegaly Extremities: Without cyanosis or edema Neuro: No lateralizing findings, no asterixis or myoclonus Assessment/Plan Assessment/Recommendations Assessment: 81-year-old woman with a multitude of comorbidities including chronic kidney disease stage IV secondary to diabetic nephropathy with a baseline creatinine level that has generally ranged from 1.5 to the low 2's. She now comes in with respiratory symptoms including shortness of breath and cough, is found to have a positive swab for influenza A but was also treated with diuretics for possible congestive heart failure. Her creatinine has rapidly risen from baseline to a level of 3.1 this morning. Diuretics were discontinued while her HAWK inhibitor (lisinopril) has been continued, albeit at low dose. Despite the presence of microscopic hematuria, I believe the clinical picture is most consistent with superimposed prerenal azotemia likely secondary to diuretic therapy. The falling hemoglobin may simply be due to further bone marrow suppression and decreased RBC survival time in a patient with kidney failure and acute infection. We should of course be on the lookout for possible GI blood loss. Should her renal function continued to worsen then we will have to consider the possibility of a pulmonary renal syndrome. Of course, obstruction always needs to be considered. Recommendations: 1. Renal ultrasound 2. Repeat urinalysis with a urine culture (if not already done) 3. Spot urine for protein to creatinine ratio 4. Hold diuretics; would also hold lisinopril for now 5. Agree with gentle hydration while monitoring intake and output, chemistries daily 6. Would take the opportunity to check a serum immunoelectrophoresis and serum free light chains 7. Monitor for GI bleeding including stools for occult blood Thank you. Will follow with interest.
[2017-05-18 16:21] VITALS: BP 106/60
--- NOTE | 2017-05-18 18:34 | ULTRASOUND REPORT ---
EXAMINATION: US RETROPERITONEAL COMPLETE (RENAL) CLINICAL INFORMATION: Acute kidney insufficiency. COMPARISON: Renal ultrasound 02/19/2017. CT of chest 05/17/2017 TECHNIQUE: Real-time imaging of the kidneys and bladder. Color Doppler exam used. FINDINGS: Exam limited by body habitus. Patient unable to follow breathing instructions RIGHT KIDNEY: 13.9 x 7.7 x 5.4 cm (SAG x AP x TRV). The kidney is normal in size, contour, and echogenicity. Renal cortical thickness is normal. There is an echogenic focus in the midpole right kidney measuring 2 x 3 mm likely a nonobstructive stone. LEFT KIDNEY: 12.5 x 6.1 x 5.4 cm (SAG x AP x TRV). The kidney is normal in size, contour, and echogenicity. Renal cortical thickness is normal. No calculi or focal parenchymal lesions. No hydronephrosis. BLADDER: Herrera catheter in place. The bladder is empty. Ureteral jets are not seen. IMPRESSION: Likely a 2 x 3 mm nonobstructive stone in the midpole right kidney. There is no hydronephrosis. Both kidneys have normal size, contour and echogenicity..
[2017-05-18 20:02] LABS: ABSOLUTE BASOPHIL COUNT 0 /CUMM (0.0-0.2); ABSOLUTE EOSINOPHIL COUNT 0 /CUMM (0.0-0.7); ABSOLUTE GRANULOCYTE CT 6.1 /CUMM (1.4-6.5); ABSOLUTE LYMPH COUNT 0.8 /CUMM (1.2-3.4); ABSOLUTE MONOCYTE COUNT 0.4 /CUMM (0.10-0.60); BASOPHIL % 0.3 % (0.0-2.0); EOSINOPHIL % 0 % (0-5); GRANULOCYTE % 83.5 % (42.2-75.2); HEMATOCRIT 25.4 % (37-47); MEAN CORPUSCULAR HGB 28.3 PG (27.0-31.0); MEAN CORPUSCULAR HGB CONC 32.4 G/DL (33.0-37.0); MEAN CORPUSCULAR VOLUME 87.2 FL (81.0-99.0); MEAN PLATELET VOLUME 9.3 FL (7.4-10.4); PLATELET COUNT 186 /CUMM (130-400); RED BLOOD CELL CT 2.92 /CUMM (4.20-5.40); WHITE BLOOD CELL COUNT 7.3 /CUMM (4.8-10.8)
[2017-05-18 22:25] VITALS: BP 112/62
[2017-05-19 06:18] VITALS: BP 110/62
--- NOTE | 2017-05-19 07:13 | PN- Housestaff ---
See Addendum Subjective Follow-up For: Influenza Tele-Events Since Last Visit: NSR 50-60 Subjective: No further fevers last night. She feels a little better today, still complaining of throat pain. No other issues. Review of Systems Constitutional: Reports: no symptoms. EENTM: Reports: see HPI. Cardiovascular: Reports: no symptoms. Respiratory: Reports: no symptoms. Gastrointestinal: Reports: no symptoms. Genitourinary: Reports: no symptoms. Musculoskeletal: Reports: no symptoms. Skin: Reports: no symptoms. Neurological/Psychological: Reports: no symptoms. Hematologic/Endocrine: Reports: no symptoms. Immunologic/Allergic: Reports: no symptoms. Objective Last 24 Hrs of Vital Signs/I&O Vital Signs Date Time Temp Pulse Resp B/P B/P Pulse O2 O2 Flow FiO2 Mean Ox Delivery Rate 05/19 0618 99.0 56 20 110/62 96 Nasal Cannula 05/19 0000 Nasal 3.0L Cannula 05/18 2225 99.0 58 22 112/62 94 05/18 2110 61 112/62 05/18 1621 68 106/60 05/18 1600 Nasal 3.0L Cannula 05/18 1425 99.3 70 20 10/58 Nasal 3.0L Cannula 05/18 0954 76 126/62 05/18 0954 76 126/62 05/18 0800 Nasal 3.0L Cannula Intake & Output 05/19 0800 05/19 0000 05/18 1600 Intake Total 1100 600 Output Total 300 500 Balance 800 100 Intake, Blood 500 Product Intake, IV 300 600 Intake, Oral 300 Output, 300 Emesis Output, Urine 300 200 Physical Exam General Appearance: Alert, Oriented X3, Cooperative, No Acute Distress Skin: No Rashes HEENT: Atraumatic Cardiovascular: Regular Rate, Normal S1, Normal S2 Lungs: rhonci Abdomen: Normal Bowel Sounds, Soft, No Tenderness Extremities: No Edema, Normal Pulses, No Tenderness/Swelling Current Medications: Current Medications Sig/Hermelinda Start time Last Medication Dose Route Stop Time Status Admin Acetaminophen 1,000 MG Q6P PRN 05/16 1430 AC IV Aspirin Buffered 81 MG DAILY 05/17 1000 AC 05/18 PO 0947 Atorvastatin Calcium 40 MG 1700 05/17 1700 AC 05/18 PO 1714 Benzocaine/Menthol 1 DENIS Q2P PRN 05/17 0730 AC PO Carvedilol 3.125 MG BID 05/16 1448 AC 05/18 PO 2110 Gabapentin 300 MG DAILY 05/16 1448 AC 05/18 PO 0947 Heparin Sodium 5,000 UNIT Q8 05/18 0830 AC 05/19 (Porcine) SC 0553 Insulin Aspart Prota 25 UNIT 0700,1700 05/17 0700 AC 05/18 70%/Aspart 30% SC 1714 Lisinopril 5 MG DAILY 05/16 1448 DC 05/18 PO 0954 Ondansetron HCl 4 MG ONCE ONE 05/18 1115 DC 05/18 IV 05/18 1116 1129 Oseltamivir Phosphate 75 MG BID 05/18 1000 CAN PO 05/21 2214 Oseltamivir Phosphate 30 MG DAILY 05/18 1000 AC 05/18 PO 05/22 0959 1331 Oseltamivir Phosphate 30 MG DAILY 05/17 2215 DC 05/17 PO 05/21 2214 2239 Oxycodone/ 2 TAB Q6P PRN 05/16 1430 AC 05/18 Acetaminophen PO 0152 Sodium Chloride 1,000 ML Q10H 05/18 1545 AC 05/19 IV 0553 Sodium Chloride 1,000 ML ONCE ONE 05/18 0130 DC 05/18 IV 05/18 1449 0146 Last 24 Hrs of Lab/Zaire Results Last 24 Hrs of Labs/Mics: Laboratory Tests 05/18/17 2330: Anion Gap 11, Estimated GFR 13 L, BUN/Creatinine Ratio 24.5, C-Reactive Prot, Quant 4.9 H 05/18/17 1900: CBC w Diff NO MAN DIFF REQ, RBC 2.92 L, MCV 87.2, MCH 28.3, RDW 15.0 H, MPV 9.3, Gran % 83.5 H, Lymphocytes % 11.3 L, Monocytes % 4.9, Eosinophils % 0, Basophils % 0.3, Absolute Granulocytes 6.1, Absolute Lymphocytes 0.8 L, Absolute Monocytes 0.4, Absolute Eosinophils 0, Absolute Basophils 0, PUBS MCHC 32.4 L 05/18/17 1728: Prot Electrophoresis Pending, Total Protein (PEP) Pending, Albumin % (PEP) Pending, [id number] Pending, [id number] Pending, [id number] Pending, [id number] Pending, Gamma Globulins Pending, Abnorm Protein Band 1 Pending, Abnorm Protein Band 2 Pending, Abnorm Protein Band 3 Pending 05/18/17 1600: Sodium Cancelled, Potassium Cancelled, Chloride Cancelled, Carbon Dioxide Cancelled, Anion Gap Cancelled, BUN Cancelled, Creatinine Cancelled, BUN/ Creatinine Ratio Cancelled, CBC w Diff Cancelled, WBC Cancelled, RBC Cancelled, Hgb Cancelled, Hct Cancelled, MCV Cancelled, MCH Cancelled, RDW Cancelled, Plt Count Cancelled, MPV Cancelled, PUBS MCHC Cancelled 05/18/17 1030: Urinalysis LIGHT H, Urine Color YEL, Urine Clarity HAZY H, Urine pH 5.5, Ur Specific [place] >= 1.030, Urine Protein 100 H, Urine Ketones NEG, Urine Nitrite NEG, Urine Bilirubin NEG, Urine Urobilinogen 0.2, Ur Leukocyte Esterase NEG, Ur Microscopic SEDIMENT EXAMINED, Urine RBC 25-50 H, Urine WBC 3-5 H, Urine Bacteria MOD H, Hyaline Casts 1-3 H, Granular Casts 3-5 H, Urine Mucus FEW, Micro UA Comment MORE INFO: H, Urine Hemoglobin MOD H, Urine Glucose 100 H Assessment/Plan Assessment: Ms. Hummel is a 81-year-old female with past medical history of dementia, hypertension, hyperlipidemia, rheumatoid arthritis, systemic lupus erythematosus , chronic kidney disease followed by Dr. Kathleen, depression, diabetes mellitus, HFpEF followed by Dr. Yee who presented with dyspnea. 1. Acute hypoxic respiratory failure 2. Type II IA 3. Heart Failure 4. Sepsis secondary to influenza 5. Normocytic anemia 6. Hypomagnesemia 7. Acute on chronic kidney disease 8. Acute hyponatremia #Sepsis secondary to influenza: She met 3/4 SIRS criteria (tachycardia, tachypnea, leukocytosis) on admission. Flu swab was positive for influenza, indicating source of her sepsis. CT chest was also done which showed groundglass opacities and small bilateral pleural effusions. She has had no further fevers and she looks much more awake today. -Continue renally dosed oseltamivir -Follow-up viral culture #Acute on chronic kidney disease: Patient has baseline chronic kidney disease, creatinine 1.7. It is now up trended to 3.3. She responded well to initial diuresis which may have caused the injury. However she has been on fluid hydration for over 24 hours and creatinine continues to worsen. Renal ultrasound showed 2 x 3 mm nonobstructing stone in no hydronephrosis. -Holding furosemide as above -Avoid nephrotoxic medications -1 L normal saline, 100 mL per hour -Nephrology consult -Follow-up protein/creatinine ratio -Follow-up light chains #Heart Failure: Patient has history of heart failure with preserved ejection fraction. Repeat echocardiogram shows EF greater than 65%, stage I diastolic dysfunction, and right ventricular pressure 6060 5 mmHg. Given that her creatinine continues to trend upwards, we are holding diuresis and will give her some gentle hydration as below. Seem less likely that she had acute heart failure and that this is most likely related to her above problems. -holding HCTZ -Appreciate cardiology recommendations #Type II myocardial infarction: Patient likely had demand ischemia secondary to acute heart failure. Troponins trended down. No indication for cardiac cath. -discontinue Telemetry monitoring -Appreciate cardiology recommendations #Hypomagnesemia: Resolved. #Normocytic anemia: Patient's hemoglobin went from 9.7-7.8 on heparin drip. There is concern for bleeding at this time though there is no obvious source. She was transfused 1 unit of blood on . Repeat hemoglobin showed good response. LDH is normal. -Guaiac stool -Hemoglobin goal greater than 7.5. #Acute hyponatremia: Sodium is now 131 from 135 yesterday. She is asymptomatic. -Hydration as above -Continue to monitor #Chronic medical problems: Hyperlipidemia, CAD, hypertension, peripheral neuropathy, -Continue home atorvastatin, aspirin, lisinopril, gabapentin, carvedilol DVT prophylaxis with heparin Consistent carbohydrate 2 diet Full code Problem List: 1. Influenza Pain Ratin Pain Location: no pain Pain Goal: Remain pain free Pain Plan: see a/p Tomorrow's Labs & Rationales: bep, cbc
[2017-05-19 08:53] LABS: ABSOLUTE BASOPHIL COUNT 0 /CUMM (0.0-0.2); ABSOLUTE EOSINOPHIL COUNT 0 /CUMM (0.0-0.7); ABSOLUTE GRANULOCYTE CT 4.1 /CUMM (1.4-6.5); ABSOLUTE LYMPH COUNT 1.4 /CUMM (1.2-3.4); ABSOLUTE MONOCYTE COUNT 0.6 /CUMM (0.10-0.60); BASOPHIL % 0.3 % (0.0-2.0); EOSINOPHIL % 0.2 % (0-5); HEMATOCRIT 24.9 % (37-47); MEAN CORPUSCULAR HGB 28.9 PG (27.0-31.0); MEAN CORPUSCULAR HGB CONC 33.1 G/DL (33.0-37.0); MEAN CORPUSCULAR VOLUME 87.3 FL (81.0-99.0); MEAN PLATELET VOLUME 9.5 FL (7.4-10.4); PLATELET COUNT 174 /CUMM (130-400); RBC DISTRIBUTION WIDTH 15.4 % (11.5-14.5); RED BLOOD CELL CT 2.85 /CUMM (4.20-5.40); WHITE BLOOD CELL COUNT 6.2 /CUMM (4.8-10.8)
[2017-05-19 09:00] VITALS: BP 120/64
--- NOTE | 2017-05-19 09:44 | PN- Cardiology ---
Subjective Subjective: The patient was sleepy but arousable this morning. She is in no distress. She has no complaints. She denies chest pain or shortness of breath. She is in sinus rhythm on the monitor. Her renal function has continued to deteriorate. She is now receiving IV fluids. Her renal ultrasound was unremarkable. She received one unit of blood yesterday because of a drop in H&H. Her influenza test was positive for influenza A and she is being treated with Tamiflu. Objective Vital Signs and I&Os Vital Signs Date Time Temp Pulse Resp B/P B/P Pulse O2 O2 Flow FiO2 Mean Ox Delivery Rate 05/19 09 58 120/64 05/19 0900 58 120/64 05/19 0800 Nasal 3.0L Cannula 05/19 0618 99.0 56 20 110/62 96 Nasal Cannula 05/19 0000 Nasal 3.0L Cannula 05/18 2225 99.0 58 22 112/62 94 05/18 2110 61 112/62 05/18 1621 68 106/60 05/18 1600 Nasal 3.0L Cannula 05/18 1425 99.3 70 20 10/58 Nasal 3.0L Cannula 05/18 0954 76 126/62 05/18 0954 76 126/62 Intake & Output 05/19 1600 05/19 0800 05/19 0000 05/18 1600 05/18 0800 05/18 0000 Intake Total 900 1100 600 400 100 Output Total 275 300 500 350 300 Balance 625 800 100 50 -200 Intake, Blood 500 Product Intake, IV 800 300 600 300 Intake, Oral 100 300 100 100 Number 1 Bowel Movements Output, 300 Emesis Output, Urine 275 300 200 350 300 Physical Exam: She is in no distress HEENT exam normal Chest scattered rhonchi and wheezes Heart regular rhythm no murmurs No peripheral edema Current Medications: Current Medications Sig/Hermelinda Start time Last Medication Dose Route Stop Time Status Admin Acetaminophen 1,000 MG Q6P PRN 05/16 1430 AC IV Aspirin Buffered 81 MG DAILY 05/17 1000 AC 05/19 PO 0902 Atorvastatin Calcium 40 MG 1700 05/17 1700 AC 05/18 PO 1714 Benzocaine/Menthol 1 DENIS Q2P PRN 05/17 0730 AC PO Carvedilol 3.125 MG BID 05/16 1448 AC 05/19 PO 0902 Gabapentin 300 MG DAILY 05/16 1448 AC 05/19 PO 0902 Heparin Sodium 5,000 UNIT Q8 05/18 0830 AC 05/19 (Porcine) SC 0553 Insulin Aspart Prota 25 UNIT 0700,1700 05/17 0700 AC 05/19 70%/Aspart 30% SC 0804 Lisinopril 5 MG DAILY 05/16 1448 DC 05/18 PO 0954 Ondansetron HCl 4 MG ONCE ONE 05/18 1115 DC 05/18 IV 05/18 1116 1129 Oseltamivir Phosphate 30 MG DAILY 05/18 1000 AC 05/19 PO 05/22 0959 0902 Oxycodone/ 2 TAB Q6P PRN 05/16 1430 AC 05/18 Acetaminophen PO 0152 Sodium Chloride 1,000 ML Q10H 05/18 1545 AC 05/19 IV 0553 Sodium Chloride 1,000 ML ONCE ONE 05/18 0130 DC 05/18 IV 05/18 1449 0146 Results Last 48 Hrs of Labs/Mics: Laboratory Tests 05/19/17 0634: Anion Gap 10, Estimated GFR 13 L, BUN/Creatinine Ratio 24.0, CBC w Diff MAN DIFF ORDERED, WBC Pending, RBC Pending, Hgb Pending, Hct Pending, MCV Pending, MCH Pending, RDW Pending, Plt Count Pending, MPV Pending, Gran % Pending, Lymphocytes % Pending, Monocytes % Pending, Eosinophils % Pending, Basophils % Pending, Absolute Granulocytes Pending, Segmented Neutrophils Pending, Absolute Lymphocytes Pending, Absolute Monocytes Pending, Absolute Eosinophils Pending, Absolute Basophils Pending, PUBS MCHC Pending, Hepatitis A IgM Ab Pending, Hep Bs Antigen Pending, Hep B Core IgM Ab Conf Pending, Hepatitis C Antibody Pending 05/18/17 2330: Anion Gap 11, Estimated GFR 13 L, BUN/Creatinine Ratio 24.5, C-Reactive Prot, Quant 4.9 H 05/18/17 1900: CBC w Diff NO MAN DIFF REQ, RBC 2.92 L, MCV 87.2, MCH 28.3, RDW 15.0 H, MPV 9.3, Gran % 83.5 H, Lymphocytes % 11.3 L, Monocytes % 4.9, Eosinophils % 0, Basophils % 0.3, Absolute Granulocytes 6.1, Absolute Lymphocytes 0.8 L, Absolute Monocytes 0.4, Absolute Eosinophils 0, Absolute Basophils 0, [facility] MCHC 32.4 L 05/18/17 1728: Prot Electrophoresis Pending, Total Protein (PEP) Pending, Albumin % (PEP) Pending, [id number] Pending, [id number]-[id number] Pending, [id number]-[id number] Pending, Tnrz-[id number] Pending, Gamma Globulins Pending, Abnorm Protein Band 1 Pending, Abnorm Protein Band 2 Pending, Abnorm Protein Band 3 Pending 05/18/17 1600: Sodium Cancelled, Potassium Cancelled, Chloride Cancelled, Carbon Dioxide Cancelled, Anion Gap Cancelled, BUN Cancelled, Creatinine Cancelled, BUN/ Creatinine Ratio Cancelled, CBC w Diff Cancelled, WBC Cancelled, RBC Cancelled, Hgb Cancelled, Hct Cancelled, MCV Cancelled, MCH Cancelled, RDW Cancelled, Plt Count Cancelled, MPV Cancelled, PUBS MCHC Cancelled 05/18/17 1533: Ur Random Creatinine Cancelled 05/18/17 1030: Urine Osmolality 345, Ur Random Creatinine Pending, U Random Total Protein Pending 05/18/17 1030: Urinalysis LIGHT H, Urine Color YEL, Urine Clarity HAZY H, Urine pH 5.5, Ur Specific [place] >= 1.030, Urine Protein 100 H, Urine Ketones NEG, Urine Nitrite NEG, Urine Bilirubin NEG, Urine Urobilinogen 0.2, Ur Leukocyte Esterase NEG, Ur Microscopic SEDIMENT EXAMINED, Urine RBC 25-50 H, Urine WBC 3-5 H, Urine Bacteria MOD H, Hyaline Casts 1-3 H, Granular Casts 3-5 H, Urine Mucus FEW, Micro UA Comment MORE INFO: H, Urine Hemoglobin MOD H, Urine Glucose 100 H 05/18/17 0635: Anion Gap 8, Estimated GFR 14 L, BUN/Creatinine Ratio 21.6, Lactate Dehydrogenase 484, CBC w Diff NO MAN DIFF REQ, RBC 2.51 L, MCV 87.3, MCH 29.5, RDW 14.9 H, MPV 9.2, Gran % 79.2 H, Lymphocytes % 10.1 L, Monocytes % 10.4 H , Eosinophils % 0, Basophils % 0.3, Absolute Granulocytes 5.5, Absolute Lymphocytes 0.7 L, Absolute Monocytes 0.7 H, Absolute Eosinophils 0, Absolute Basophils 0, PUBS MCHC 33.8 05/17/17 1600: CBC w Diff NO MAN DIFF REQ, RBC 2.68 L, MCV 87.8, MCH 29.0, RDW 15.3 H, MPV 10.0, Gran % 84.4 H, Lymphocytes % 6.0 L, Monocytes % 9.3, Eosinophils % 0.1, Basophils % 0.2, Absolute Granulocytes 7.7 H, Absolute Lymphocytes 0.6 L, Absolute Monocytes 0.9 H, Absolute Eosinophils 0, Absolute Basophils 0, PUBS MCHC 33.0 05/17/17 1415: Virus Culture Pending 05/17/17 1110: Urinalysis MOD H, Urine Color YEL, Urine Clarity HAZY H, Urine pH 6.0, Ur Specific [place] 1.025, Urine Protein 100 H, Urine Ketones NEG, Urine Nitrite NEG, Urine Bilirubin NEG, Urine Urobilinogen 0.2, Ur Leukocyte Esterase NEG, Ur Microscopic SEDIMENT EXAMINED, Urine RBC 25-50 H, Urine WBC 1-3 H, Ur Epithelial Cells FEW, Urine Bacteria MOD H, Granular Casts FEW H, Urine Mucus FEW, Urine Hemoglobin MOD H, Urine Glucose NEG Microbiology 05/17 1181 NASOPHARYN: Influenza Virus A & B Rapid Smear - COMP INFLUENZA TYPE A Assessment/Plan Assessment/Plan The patient is doing well from a cardiac standpoint. She had a small troponin rise but no evidence of congestive heart failure or wall motion abnormalities on echocardiogram. Her main issues appear to be acute influenza with possible pneumonia and acute on chronic renal failure. Her troponin peaked at just over 1 but there are no wall motion abnormalities on her echocardiogram or EKG changes. This is a type II myocardial infarction based on no chest pain and no evidence of a coronary event. Therefore we'll treat her conservatively especially considering her other abnormalities at this time. There are no plans for cardiac catheterization. The patient can be removed from telemetry monitoring at this time. Please call for further cardiac input. Continue telemetry? No
--- NOTE | 2017-05-19 13:24 | PN- Student ---
Subjective Subjective: Follow up for Influenza A Subjective: a 81 f w/influenza A.No overnight events or complications.Reports throat pain and that she has foot pain. Review of Systems Constitutional: Reports: no symptoms. EENTM: Reports: throat pain Cardiovascular: Reports: no symptoms. Respiratory: Reports: no symptoms. Gastrointestinal: Reports: no symptoms. Genitourinary: Reports: no symptoms. Musculoskeletal: Reports: foot pain Skin: Reports: no symptoms. Neurological/Psychological: Reports: no symptoms. Hematologic/Endocrine: Reports: no symptoms. Immunologic/Allergic: Reports: no symptoms. Objective Objective: Objective: Vitals as of 05/19 06:18 Temp:99.0 Pulse:56 Resp.rate:20 BP : 110/62 O2 stat:96 (O2 flow 3L) Intake & Output 05/19 0800 05/19 0000 05/18 1600 Intake Total 1100 600 Output Total 300 500 Balance 800 100 Intake, Blood 500 Product Intake, IV 300 600 Intake, Oral 300 Output, 300 Emesis Output, Urine 300 200 Physical Exam General Appearance: Alert, Oriented X3, No Acute Distress Skin: No Rashes HEENT:pale sclera,no signs of jaundice Cardiovascular: Regular Rate, Normal S1, Normal S2 Lungs: bilateral wheezes in the lower lobes,expiratory crackles Abdomen: Normal Bowel Sounds, Soft, No Tenderness Extremities:+1 pitting Edema, Normal Pulses,Mild Tenderness/Swelling Current Medications Sig/Hermelinda Start time Last Medication Dose Route Stop Time Status Admin Acetaminophen 1,000 MG Q6P PRN 05/16 1430 AC IV Aspirin Buffered 81 MG DAILY 05/17 1000 AC 05/18 PO 0947 Atorvastatin Calcium 40 MG 1700 05/17 1700 AC 05/18 PO 1714 Benzocaine/Menthol 1 DENIS Q2P PRN 05/17 0730 AC PO Carvedilol 3.125 MG BID 05/16 1448 AC 05/18 PO 2110 Gabapentin 300 MG DAILY 05/16 1448 AC 05/18 PO 0947 Heparin Sodium 5,000 UNIT Q8 05/18 0830 AC 05/19 (Porcine) SC 0553 Insulin Aspart Prota 25 UNIT 0700,1700 05/17 0700 AC 05/18 70%/Aspart 30% SC 1714 Lisinopril 5 MG DAILY 05/16 1448 DC 05/18 PO 0954 Ondansetron HCl 4 MG ONCE ONE 05/18 1115 DC 05/18 IV 05/18 1116 1129 Oseltamivir Phosphate 75 MG BID 05/18 1000 CAN PO 05/21 221 Oseltamivir Phosphate 30 MG DAILY 05/18 1000 AC 05/18 PO 05/22 0959 1331 Oseltamivir Phosphate 30 MG DAILY 05/17 2215 DC 05/17 PO 05/21 2214 2239 Oxycodone/ 2 TAB Q6P PRN 05/16 1430 AC 05/18 Acetaminophen PO 0152 Sodium Chloride 1,000 ML Q10H 05/18 1545 AC 05/19 IV 0553 Sodium Chloride 1,000 ML ONCE ONE 05/18 0130 DC 05/18 IV 05/18 1449 0146 Results Results: Laboratory Tests 05/19/17 0634: Anion Gap 10, Estimated GFR 13 L, BUN/Creatinine Ratio 24.0, Total Bilirubin < 0.1 L, Direct Bilirubin 0, AST 32, ALT 28, Alkaline Phosphatase 93, Total Protein 5.1 L, Albumin 2.3 L, CBC w Diff MAN DIFF ORDERED, RBC 2.85 L, MCV 87.3, MCH 28.9, RDW 15.4 H, MPV 9.5, Gran % 67.0, Lymphocytes % 23.2, Monocytes % 9.3, Eosinophils % 0.2, Basophils % 0.3, Absolute Granulocytes 4.1, Segmented Neutrophils 60, Band Neutrophils 11 H, Absolute Lymphocytes 1.4, Lymphocytes 23 , Monocytes 5, Absolute Monocytes 0.6, Eosinophils 1, Absolute Eosinophils 0, Absolute Basophils 0, Platelet Estimate ADEQUATE, Hypochromic-Microcytic 1+, Poikilocytosis 2+, Anisocytosis 1+, PUBS MCHC 33.1, Hepatitis A IgM Ab NONREACTIVE, Hep Bs Antigen NONREACTIVE, Hep B Core IgM Ab Conf NONREACTIVE, Hepatitis C Antibody NONREACTIVE 05/18/17 2330: Anion Gap 11, Estimated GFR 13 L, BUN/Creatinine Ratio 24.5, C-Reactive Prot, Quant 4.9 H 05/18/17 1900: CBC w Diff NO MAN DIFF REQ, RBC 2.92 L, MCV 87.2, MCH 28.3, RDW 15.0 H, MPV 9.3, Gran % 83.5 H, Lymphocytes % 11.3 L, Monocytes % 4.9, Eosinophils % 0, Basophils % 0.3, Absolute Granulocytes 6.1, Absolute Lymphocytes 0.8 L, Absolute Monocytes 0.4, Absolute Eosinophils 0, Absolute Basophils 0, PUBS MCHC 32.4 L 05/18/17 1728: Prot Electrophoresis Pending, Total Protein (PEP) Pending, Albumin % (PEP) Pending, [id number] Pending, [id number]-[id number] Pending, Zkye-7-[id number] Pending, Okvy-9-Fcgtdfhn Pending, Gamma Globulins Pending, Abnorm Protein Band 1 Pending, Abnorm Protein Band 2 Pending, Abnorm Protein Band 3 Pending 05/18/17 1600: Sodium Cancelled, Potassium Cancelled, Chloride Cancelled, Carbon Dioxide Cancelled, Anion Gap Cancelled, BUN Cancelled, Creatinine Cancelled, BUN/ Creatinine Ratio Cancelled, CBC w Diff Cancelled, WBC Cancelled, RBC Cancelled, Hgb Cancelled, Hct Cancelled, MCV Cancelled, MCH Cancelled, RDW Cancelled, Plt Count Cancelled, MPV Cancelled, PUBS MCHC Cancelled 05/18/17 1533: Ur Random Creatinine Cancelled 05/18/17 1030: Urinalysis LIGHT H, Urine Color YEL, Urine Clarity HAZY H, Urine pH 5.5, Ur Specific [place] >= 1.030, Urine Protein 100 H, Urine Ketones NEG, Urine Nitrite NEG, Urine Bilirubin NEG, Urine Urobilinogen 0.2, Ur Leukocyte Esterase NEG, Ur Microscopic SEDIMENT EXAMINED, Urine RBC 25-50 H, Urine WBC 3-5 H, Urine Bacteria MOD H, Hyaline Casts 1-3 H, Granular Casts 3-5 H, Urine Mucus FEW, Micro UA Comment MORE INFO: H, Urine Hemoglobin MOD H, Urine Glucose 100 H 05/18/17 1030: Urine Osmolality 345, Ur Random Creatinine 127.4, U Random Total Protein 172 H, Ur Random Sodium 18 L, Ur Random Potassium 38.5, Fraction Sodium Excret 0.3 05/18/17 1000: Urine Total Volume Cancelled, Ur Total Protein 24 Hr Cancelled 05/18/17 0635: Anion Gap 8, Estimated GFR 14 L, BUN/Creatinine Ratio 21.6, Lactate Dehydrogenase 484, CBC w Diff NO MAN DIFF REQ, RBC 2.51 L, MCV 87.3, MCH 29.5, RDW 14.9 H, MPV 9.2, Gran % 79.2 H, Lymphocytes % 10.1 L, Monocytes % 10.4 H , Eosinophils % 0, Basophils % 0.3, Absolute Granulocytes 5.5, Absolute Lymphocytes 0.7 L, Absolute Monocytes 0.7 H, Absolute Eosinophils 0, Absolute Basophils 0, PUBS MCHC 33.8 05/17/17 1600: CBC w Diff NO MAN DIFF REQ, RBC 2.68 L, MCV 87.8, MCH 29.0, RDW 15.3 H, MPV 10.0, Gran % 84.4 H, Lymphocytes % 6.0 L, Monocytes % 9.3, Eosinophils % 0.1, Basophils % 0.2, Absolute Granulocytes 7.7 H, Absolute Lymphocytes 0.6 L, Absolute Monocytes 0.9 H, Absolute Eosinophils 0, Absolute Basophils 0, PUBS MCHC 33.0 05/17/17 1415: Virus Culture Pending 05/17/17 1110: Urinalysis MOD H, Urine Color YEL, Urine Clarity HAZY H, Urine pH 6.0, Ur Specific [place] 1.025, Urine Protein 100 H, Urine Ketones NEG, Urine Nitrite NEG, Urine Bilirubin NEG, Urine Urobilinogen 0.2, Ur Leukocyte Esterase NEG, Ur Microscopic SEDIMENT EXAMINED, Urine RBC 25-50 H, Urine WBC 1-3 H, Ur Epithelial Cells FEW, Urine Bacteria MOD H, Granular Casts FEW H, Urine Mucus FEW, Urine Hemoglobin MOD H, Urine Glucose NEG 05/17/17 0625: Troponin I Cancelled 05/17/17 0625: Anion Gap 10, Estimated GFR 19 L, BUN/Creatinine Ratio 22.9, Phosphorus 4.4, Magnesium 2.3, Troponin I 0.98 *H, APTT > 120 *H, CBC w Diff NO MAN DIFF REQ, RBC 2.69 L, MCV 87.4, MCH 29.1, RDW 14.6 H, MPV 9.2, Gran % 85.5 H, Lymphocytes % 5.9 L, Monocytes % 8.5, Eosinophils % 0, Basophils % 0.1, Absolute Granulocytes 8.0 H, Absolute Lymphocytes 0.6 L, Absolute Monocytes 0.8 H, Absolute Eosinophils 0, Absolute Basophils 0, PUBS MCHC 33.3 05/17/17 0130: APTT 32 05/17/17 0110: Troponin I 1.12 *H 05/16/17 1917: Troponin I 0.61 *H 05/16/17 1513: Troponin I 0.37 *H Microbiology 05/17 1853 NASOPHARYN: Influenza Virus A & B Rapid Smear - COMP INFLUENZA TYPE A 05/17 1315 LOWER RESP: Respiratory Culture - CAN Cancelled: NUMBER OF SQUAMOUS CELLS INDICATES POOR QUALITY SPECIMEN 05/17 1315 LOWER RESP: Gram Stain - CAN Cancelled: NUMBER OF SQUAMOUS CELLS INDICATES POOR QUALITY SPECIMEN 05/17 1115 URINE ROUT: Urine Culture - RES 05/17 1100 BLOOD: Blood Culture - RES 05/17 1050 BLOOD: Blood Culture - RES 05/16 1639 URINE ROUT: Urine Culture - COMP Assessment/Plan Assessment: Ms. Hummel is a 81-year-old female with past medical history of dementia, hypertension, hyperlipidemia, rheumatoid arthritis, systemic lupus erythematosus , depression, diabetes mellitus,heart failure with preserved ejection fraction ( HFpEF) followed by Dr. Yee, chronic kidney disease followed by Dr. Kathleen,who presents with dyspnea. Plan: 1.Influenza A : Patients tested positive for influenza A and is placed on oseltamivir and given normal saline IV.Discontinue vancomycin. 2. Acute hypoxic respiratory failure: Patient is placed on 3.0L of oxygen via nasal cannula. 3.Myocardial Infarction Increases in troponin 1 can be attributed to an impending OH but most likely is due to ischemia secondary to respiratory failure.Troponins levels are decreasing. Continue monitoring patient,appreciated cardiology recommendations, stop heparin. 4. Acute decompensated Heart Failure-Patient has a prior history of heart failure which explains the elevated BNP,swollen legs and respiratory symptoms. TTE ordered,continue daily weights ,stop furosemide due to kidney disease,follow up chest xray ,appreciate cardiology recommendations. 5. Acute on chronic kidney disease: Creatinine is elevated to 2.4 today with her normal ranging 1.5 - 1.7.Likely this increase is due to diuretic. Furosemide is dc and avoid nephrotoxic medication. 6.Pneumonia: X ray was ordered to rule out pneumonia due to high grade fever.Findings include subpleural reticular opacities at lung bases most likely due to chronic,inflammatory or infectious process. Chronic medical problems: Hyperlipidemia, CAD, hypertension,diabetes Continue home atorvastatin, aspirin, lisinopril, gabapentin, carvedilol,insulin DVT Prophylaxis: Heparin. Diet : Low Salt /Low Carb Code Status: Full Code. 2. Acute hypoxic respiratory failure: Patient is placed on 3.0L of oxygen via nasal cannula. 3.Myocardial Infarction Increases in troponin 1 can be attributed to an impending mi but most likely is due to ischemia secondary to respiratory failure.Troponins levels are decreasing.Continue monitoring patient,appreciated cardiology recommendations, stop heparin. 4. Acute decompensated Heart Failure-Patient has a prior history of heart failure which explains the elevated BNP,swollen legs and respiratory symptoms.TTE ordered,continue daily weights ,stop furosemide due to kidney disease,follow up chest xray ,appreciate cardiology recommendations. 5. Acute on chronic kidney disease: Creatinine is elevated to 2.4 today with her normal ranging 1.5 - 1.7.Likely this increase is due to diuretic.Furosemide is dc and avoid nephrotoxic medication. 6.Pneumonia: X ray was ordered to rule out pneumonia due to high grade fever.Findings include subpleural reticular opacities at lung bases most likely due to chronic,inflammatory or infectious process. Chronic medical problems: Hyperlipidemia, CAD, hypertension,diabetes Continue home atorvastatin, aspirin, lisinopril, gabapentin, carvedilol,insulin DVT Prophylaxis: Heparin. Diet : Low Salt /Low Carb Code Status: Full Code.
[2017-05-19 14:22] VITALS: BP 104/52
--- NOTE | 2017-05-19 15:57 | PN- Nephrology ---
Assessment/Plan Assessment: 1. POP- not improving thus far with IV fluids. Diff dx includes prerenal failure (now somewhat less likely), ATN 2/2 relatively low bp or possibly 2/2 flu induced rhabdo, and acute interstitial or glomerulo- nephritis. There is no obstruction by ultrasound. 2. CKD 2/2 diabetic nephropathy with known high-grade proteinuria 3. Influenza A pneumonia - on Tamiflu 4. Troponin blip - likely on a demand basis (see Cardiology note) 5. Other comorbidities as noted Suggestion: 1. Please add a CK level to this morning's labs 2. Check fractional excretion of sodium 3. Would also check cortisol level and consider steroid support in setting of relatively low blood pressures 4. Decrease IV fluids to 75 mL per hour Subjective Subjective: Patient has at times felt a little better but continues to cough and complain of myalgias. Temperature was as high as 103.2 yesterday, 99.3 currently. WBC remains normal and blood cultures are negative thus far. Systolic blood pressures recently between 104 and 120. I/O: 2100/1150. Serum creatinine up to 3.5 with normal electrolytes. Renal ultrasound shows normal-sized kidneys with normal echogenicity and no hydronephrosis. Serum protein electrophoresis and hepatitis studies are pending. 24-hour urine collection in progress. Objective Vital Signs and I&Os Vital Signs Date Time Temp Pulse Resp B/P B/P Pulse O2 O2 Flow FiO2 Mean Ox Delivery Rate 05/19 1422 99.3 60 20 104/52 98 Nasal 3.0L Cannula 05/19 0902 58 120/64 05/19 0900 58 120/64 05/19 0800 Nasal 3.0L Cannula 05/19 0618 99.0 56 20 110/62 96 Nasal Cannula 05/19 0000 Nasal 3.0L Cannula 05/18 2225 99.0 58 22 112/62 94 05/18 2110 61 112/62 05/18 1621 68 106/60 05/18 1600 Nasal 3.0L Cannula Intake & Output 05/19 0400 05/18 1600 05/18 0400 05/17 0400 Intake Total 2180 1100 1000 100 777.5 200 Output Total 575 300 850 016 526 5464 Balance 1605 800 150 -200 252.5 -1550 Intake, Blood 500 Product Intake, IV 1600 300 900 197.5 Intake, Oral 580 300 100 100 580 200 Number 1 1 Bowel Movements Output, 300 Emesis Output, Urine 575 300 550 816 160 2012 Patient 206 lb Weight Physical Exam: General: Well-developed, elderly white female in NAD; speaks Uzbek with little Moroccan Skin: No rash or jaundice HEENT: Conjunctivae pale, sclerae anicteric, mucous membranes dry Neck: Without masses or thyromegaly, no supraclavicular or cervical adenopathy Chest: Scattered rhonchi Heart: Regular rate and rhythm without S3 or rub Abdomen: Obese, soft and nontender without palpable masses or organomegaly Extremities: Without cyanosis or edema Neuro: No lateralizing findings, no asterixis or myoclonus Results Pertinent Lab Results: Laboratory Tests 05/19 05/18 0634 2330 Chemistry Sodium (137 - 145 mmol/L) 135 L 135 L Potassium (3.5 - 5.1 mmol/L) 4.8 4.6 Chloride (98 - 107 mmol/L) 103 103 Carbon Dioxide (22 - 30 mmol/L) 22 21 L Anion Gap (5 - 16) 10 11 BUN (7 - 17 mg/dL) 84 H 81 H Creatinine (0.5 - 1.0 mg/dL) 3.5 H 3.3 H Estimated GFR (>60 ml/min) 13 L 13 L BUN/Creatinine Ratio (7 - 25 %) 24.0 24.5 Total Bilirubin (0.2 - 1.3 mg/dL) < 0.1 L Direct Bilirubin (< 0.4 mg/dL) 0 AST (14 - 36 U/L) 32 ALT (9 - 52 U/L) 28 Alkaline Phosphatase (<127 U/L) 93 C-Reactive Prot, Quant (<1.0 mg/dL) 4.9 H Total Protein (6.3 - 8.2 g/dL) 5.1 L Albumin (3.5 - 5.0 g/dL) 2.3 L Hematology CBC w Diff MAN DIFF ORDERED WBC (4.8 - 10.8 /CUMM) 6.2 RBC (4.20 - 5.40 /CUMM) 2.85 L Hgb (12.0 - 16.0 G/DL) 8.2 L Hct (37 - 47 %) 24.9 L MCV (81.0 - 99.0 FL) 87.3 MCH (27.0 - 31.0 PG) 28.9 RDW (11.5 - 14.5 %) 15.4 H Plt Count (130 - 400 /CUMM) 174 MPV (7.4 - 10.4 FL) 9.5 Gran % (42.2 - 75.2 %) 67.0 Lymphocytes % (20.5 - 51.1 %) 23.2 Monocytes % (1.7 - 9.3 %) 9.3 Eosinophils % (0 - 5 %) 0.2 Basophils % (0.0 - 2.0 %) 0.3 Absolute Granulocytes (1.4 - 6.5 /CUMM) 4.1 Segmented Neutrophils (42.2 - 75.2 %) 60 Band Neutrophils (0.0 - 5.0 %) 11 H Absolute Lymphocytes (1.2 - 3.4 /CUMM) 1.4 Lymphocytes (20.5 - 51.1 %) 23 Monocytes (1.7 - 9.3 %) 5 Absolute Monocytes (0.10 - 0.60 /CUMM) 0.6 Eosinophils (0 - 5.0 %) 1 Absolute Eosinophils (0.0 - 0.7 /CUMM) 0 Absolute Basophils (0.0 - 0.2 /CUMM) 0 Platelet Estimate (ADEQUATE) ADEQUATE Hypochromic-Microcytic 1+ Poikilocytosis 2+ Anisocytosis 1+ PUBS MCHC (33.0 - 37.0 G/DL) 33.1 Serology Hepatitis A IgM Ab (NONREACTIVE) NONREACTIVE Hep Bs Antigen (NONREACTIVE) NONREACTIVE Hep B Core IgM Ab Conf (NONREACTIVE) NONREACTIVE Hepatitis C Antibody (NONREACTIVE) NONREACTIVE 05/18 05/18 05/18 1900 1728 1600 Chemistry Sodium Cancelled Potassium Cancelled Chloride Cancelled Carbon Dioxide Cancelled Anion Gap Cancelled BUN Cancelled Creatinine Cancelled BUN/Creatinine Ratio Cancelled Prot Electrophoresis Pending Total Protein (PEP) Pending Albumin % (PEP) Pending [id number] Pending [id number] Pending [id number]-[id number] Pending Ssyi-8-[id number] Pending Gamma Globulins Pending Abnorm Protein Band 1 Pending Abnorm Protein Band 2 Pending Abnorm Protein Band 3 Pending Hematology CBC w Diff NO MAN DIFF REQ Cancelled WBC (4.8 - 10.8 /CUMM) 7.3 Cancelled RBC (4.20 - 5.40 /CUMM) 2.92 L Cancelled Hgb (12.0 - 16.0 G/DL) 8.3 L Cancelled Hct (37 - 47 %) 25.4 L Cancelled MCV (81.0 - 99.0 FL) 87.2 Cancelled MCH (27.0 - 31.0 PG) 28.3 Cancelled RDW (11.5 - 14.5 %) 15.0 H Cancelled Plt Count (130 - 400 /CUMM) 186 Cancelled MPV (7.4 - 10.4 FL) 9.3 Cancelled Gran % (42.2 - 75.2 %) 83.5 H Lymphocytes % (20.5 - 51.1 %) 11.3 L Monocytes % (1.7 - 9.3 %) 4.9 Eosinophils % (0 - 5 %) 0 Basophils % (0.0 - 2.0 %) 0.3 Absolute Granulocytes (1.4 - 6.5 /CUMM) 6.1 Absolute Lymphocytes (1.2 - 3.4 /CUMM) 0.8 L Absolute Monocytes (0.10 - 0.60 /CUMM) 0.4 Absolute Eosinophils (0.0 - 0.7 /CUMM) 0 Absolute Basophils (0.0 - 0.2 /CUMM) 0 PUBS MCHC (33.0 - 37.0 G/DL) 32.4 L Cancelled 05/18 05/18 05/18 1533 1030 1030 Urines Urinalysis LIGHT H Urine Color (YEL,AMB,STR) YEL Urine Clarity (CLEAR) HAZY H Urine pH (5.0 - 8.0) 5.5 Ur Specific [place] (1.001 - 1.035) >= 1.030 Urine Protein (NEG,<30 MG/DL) 100 H Urine Ketones (NEG) NEG Urine Nitrite (NEG) NEG Urine Bilirubin (NEG) NEG Urine Urobilinogen (0.1 - 1.0 EU/dl) 0.2 Ur Leukocyte Esterase (NEG) NEG Ur Microscopic SEDIMENT EXAMINED Urine RBC (0 - 5 /HPF) 25-50 H Urine WBC (0 - 2 /HPF) 3-5 H Urine Bacteria (NEG/NONE) MOD H Hyaline Casts (0/LPF) 1-3 H Granular Casts (NONE /LPF) 3-5 H Urine Mucus (FEW,NONE) FEW Micro UA Comment MORE INFO: H Urine Hemoglobin (NEG) MOD H Urine Osmolality (300 - 1000 MOSM/KG) 345 Ur Random Creatinine (mg/dL) Cancelled 127.4 U Random Total Protein (0 - 12 mg/dL) 172 H Ur Random Sodium (30 - 90 mmol/L) 18 L Ur Random Potassium (mmol/L) 38.5 Fraction Sodium Excret (<1% %) 0.3 Urine Glucose (N MG/DL) 100 H 05/18 05/18 UNK 0635 Chemistry Sodium (137 - 145 mmol/L) 131 L Potassium (3.5 - 5.1 mmol/L) 4.7 Chloride (98 - 107 mmol/L) 100 Carbon Dioxide (22 - 30 mmol/L) 24 Anion Gap (5 - 16) 8 BUN (7 - 17 mg/dL) 67 H Creatinine (0.5 - 1.0 mg/dL) 3.1 H Estimated GFR (>60 ml/min) 14 L BUN/Creatinine Ratio (7 - 25 %) 21.6 Lactate Dehydrogenase (313 - 618 U/L) 484 Hematology CBC w Diff NO MAN DIFF REQ WBC (4.8 - 10.8 /CUMM) 6.9 RBC (4.20 - 5.40 /CUMM) 2.51 L Hgb (12.0 - 16.0 G/DL) 7.4 *L Hct (37 - 47 %) 21.9 L MCV (81.0 - 99.0 FL) 87.3 MCH (27.0 - 31.0 PG) 29.5 RDW (11.5 - 14.5 %) 14.9 H Plt Count (130 - 400 /CUMM) 187 MPV (7.4 - 10.4 FL) 9.2 Gran % (42.2 - 75.2 %) 79.2 H Lymphocytes % (20.5 - 51.1 %) 10.1 L Monocytes % (1.7 - 9.3 %) 10.4 H Eosinophils % (0 - 5 %) 0 Basophils % (0.0 - 2.0 %) 0.3 Absolute Granulocytes (1.4 - 6.5 /CUMM) 5.5 Absolute Lymphocytes (1.2 - 3.4 /CUMM) 0.7 L Absolute Monocytes (0.10 - 0.60 /CUMM) 0.7 H Absolute Eosinophils (0.0 - 0.7 /CUMM) 0 Absolute Basophils (0.0 - 0.2 /CUMM) 0 PUBS MCHC (33.0 - 37.0 G/DL) 33.8 Urines Urine Total Volume Cancelled Ur Total Protein 24 Hr Cancelled 05/17 05/17 1600 1415 Hematology CBC w Diff NO MAN DIFF REQ WBC (4.8 - 10.8 /CUMM) 9.2 RBC (4.20 - 5.40 /CUMM) 2.68 L Hgb (12.0 - 16.0 G/DL) 7.8 L Hct (37 - 47 %) 23.5 L MCV (81.0 - 99.0 FL) 87.8 MCH (27.0 - 31.0 PG) 29.0 RDW (11.5 - 14.5 %) 15.3 H Plt Count (130 - 400 /CUMM) 171 MPV (7.4 - 10.4 FL) 10.0 Gran % (42.2 - 75.2 %) 84.4 H Lymphocytes % (20.5 - 51.1 %) 6.0 L Monocytes % (1.7 - 9.3 %) 9.3 Eosinophils % (0 - 5 %) 0.1 Basophils % (0.0 - 2.0 %) 0.2 Absolute Granulocytes (1.4 - 6.5 /CUMM) 7.7 H Absolute Lymphocytes (1.2 - 3.4 /CUMM) 0.6 L Absolute Monocytes (0.10 - 0.60 /CUMM) 0.9 H Absolute Eosinophils (0.0 - 0.7 /CUMM) 0 Absolute Basophils (0.0 - 0.2 /CUMM) 0 PUBS MCHC (33.0 - 37.0 G/DL) 33.0 Serology Virus Culture Pending 05/17 05/17 1110 0625 Chemistry Troponin I Cancelled Urines Urinalysis MOD H Urine Color (YEL,AMB,STR) YEL Urine Clarity (CLEAR) HAZY H Urine pH (5.0 - 8.0) 6.0 Ur Specific [place] (1.001 - 1.035) 1.025 Urine Protein (NEG,<30 MG/DL) 100 H Urine Ketones (NEG) NEG Urine Nitrite (NEG) NEG Urine Bilirubin (NEG) NEG Urine Urobilinogen (0.1 - 1.0 EU/dl) 0.2 Ur Leukocyte Esterase (NEG) NEG Ur Microscopic SEDIMENT EXAMINED Urine RBC (0 - 5 /HPF) 25-50 H Urine WBC (0 - 2 /HPF) 1-3 H Ur Epithelial Cells (NONE,FEW) FEW Urine Bacteria (NEG/NONE) MOD H Granular Casts (NONE /LPF) FEW H Urine Mucus (FEW,NONE) FEW Urine Hemoglobin (NEG) MOD H Urine Glucose (N MG/DL) NEG 05/17 05/17 05/17 0625 0130 0110 Chemistry Sodium (137 - 145 mmol/L) 135 L Potassium (3.5 - 5.1 mmol/L) 4.6 Chloride (98 - 107 mmol/L) 101 Carbon Dioxide (22 - 30 mmol/L) 24 Anion Gap (5 - 16) 10 BUN (7 - 17 mg/dL) 55 H Creatinine (0.5 - 1.0 mg/dL) 2.4 H Estimated GFR (>60 ml/min) 19 L BUN/Creatinine Ratio (7 - 25 %) 22.9 Phosphorus (2.5 - 4.5 mg/dL) 4.4 Magnesium (1.6 - 2.3 mg/dL) 2.3 Troponin I (< 0.11 ng/ml) 0.98 *H 1.12 *H Coagulation APTT (25 - 37 SEC) > 120 *H 32 Hematology CBC w Diff NO MAN DIFF REQ WBC (4.8 - 10.8 /CUMM) 9.4 RBC (4.20 - 5.40 /CUMM) 2.69 L Hgb (12.0 - 16.0 G/DL) 7.8 L Hct (37 - 47 %) 23.5 L MCV (81.0 - 99.0 FL) 87.4 MCH (27.0 - 31.0 PG) 29.1 RDW (11.5 - 14.5 %) 14.6 H Plt Count (130 - 400 /CUMM) 228 MPV (7.4 - 10.4 FL) 9.2 Gran % (42.2 - 75.2 %) 85.5 H Lymphocytes % (20.5 - 51.1 %) 5.9 L Monocytes % (1.7 - 9.3 %) 8.5 Eosinophils % (0 - 5 %) 0 Basophils % (0.0 - 2.0 %) 0.1 Absolute Granulocytes (1.4 - 6.5 /CUMM) 8.0 H Absolute Lymphocytes (1.2 - 3.4 /CUMM) 0.6 L Absolute Monocytes (0.10 - 0.60 /CUMM) 0.8 H Absolute Eosinophils (0.0 - 0.7 /CUMM) 0 Absolute Basophils (0.0 - 0.2 /CUMM) 0 PUBS MCHC (33.0 - 37.0 G/DL) 33.3 05/16 1916 Chemistry Troponin I (< 0.11 ng/ml) 0.61 *H
[2017-05-19 22:30] VITALS: BP 122/68
--- NOTE | 2017-05-20 05:53 | PN- Housestaff ---
Cesia FOWLER,Brooke 05/20/17 0553: Subjective Follow-up For: Influenza Subjective: Patient is lying down in bed in no acute distress, she looks confused however she denies any fever, chills, nausea, vomiting. She was transferred from telemetry to general medicine floor with stable vital signs overnight, MAXIMUM TEMPERATURE 100.1 Review of Systems Constitutional: Reports: no symptoms. EENTM: Denies: no symptoms. Cardiovascular: Denies: no symptoms. Respiratory: Denies: no symptoms. Gastrointestinal: Denies: no symptoms. Genitourinary: Denies: no symptoms. Objective Last 24 Hrs of Vital Signs/I&O Vital Signs Date Time Temp Pulse Resp B/P B/P Pulse O2 O2 Flow FiO2 Mean Ox Delivery Rate 05/20 06 98.0 58 20 118/60 100 05/20 0036 99.0 05/20 0000 98 Nasal 3.0L Cannula 05/19 2351 99.6 05/19 2345 99.6 05/19 2245 100.1 65 20 122/68 05/19 2244 100.1 05/19 2230 100.1 65 20 122/68 98 Nasal 3.0L Cannula 05/19 1422 99.3 60 20 104/52 98 Nasal 3.0L Cannula 05/19 0902 58 120/64 05/19 0900 58 120/64 05/19 0800 Nasal 3.0L Cannula Intake & Output 05/20 0800 05/20 0000 05/19 1600 Intake Total 533 362 2274 Output Total 400 600 300 Balance 560 282 980 Intake, IV 600 300 800 Intake, Oral 360 582 480 Number 1 Bowel Movements Output, Urine 400 600 300 Physical Exam General Appearance: lethargis and confused Skin: No Rashes, No Breakdown, No Significant Lesion HEENT: Atraumatic, PERRLA, EOMI, Mucous Membr. moist/pink Neck: Supple, No JVD Cardiovascular: Normal S1, Normal S2, No Murmurs Lungs: Clear to Auscultation, Normal Air Movement Abdomen: Normal Bowel Sounds, Soft, No Tenderness Extremities: No Clubbing, No Cyanosis, No Edema Assessment/Plan Assessment: Ms. Hummel is a 81-year-old female with past medical history of dementia, hypertension, hyperlipidemia, rheumatoid arthritis, systemic lupus erythematosus , chronic kidney disease followed by Dr. Kathleen, depression, diabetes mellitus, HFpEF followed by Dr. Yee who presented with dyspnea. 1. Acute hypoxic respiratory failure 2. Type II VT 3. Heart Failure 4. Sepsis secondary to influenza 5. Normocytic anemia 6. Hypomagnesemia 7. Acute on chronic kidney disease 8. Acute hyponatremia #Sepsis secondary to influenza: She met 3/4 SIRS criteria (tachycardia, tachypnea, leukocytosis) on admission. Flu swab was positive for influenza, indicating source of her sepsis. CT chest was also done which showed groundglass opacities and small bilateral pleural effusions. She has had no further fevers and she looks much more awake today. -Continue renally dosed oseltamivir -Follow-up viral culture #Acute on chronic kidney disease: Differential diagnosis includes ATN due to low blood pressure or possibly secondary to flu induced rhabdo Security is secondary to diabetic nephropathy Patient has baseline chronic kidney disease, creatinine 1.7. It is now up trended . She responded well to initial diuresis which may have caused the injury. However she has been on fluid hydration for over 24 hours and creatinine continues to worsen. Renal ultrasound showed 2 x 3 mm nonobstructing stone in no hydronephrosis. -Holding furosemide as above -Avoid nephrotoxic medications -1 L normal saline, 100 mL per hour -Nephrology consult -Follow-up protein/creatinine ratio -Follow-up light chains #Heart Failure: Patient has history of heart failure with preserved ejection fraction. Repeat echocardiogram shows EF greater than 65%, stage I diastolic dysfunction, and right ventricular pressure 6060 5 mmHg. Given that her creatinine continues to trend upwards, we are holding diuresis and will give her some gentle hydration as below. Seem less likely that she had acute heart failure and that this is most likely related to her above problems. -holding HCTZ -Appreciate cardiology recommendations #Type II myocardial infarction: Patient likely had demand ischemia secondary to acute heart failure. Troponins trended down. No indication for cardiac cath. -discontinue Telemetry monitoring -Appreciate cardiology recommendations #Hypomagnesemia: Resolved. #Normocytic anemia: Patient's hemoglobin went from 9.7-7.8 on heparin drip. There is concern for bleeding at this time though there is no obvious source. She was transfused 1 unit of blood on . Repeat hemoglobin showed good response. LDH is normal. -Guaiac stool -Hemoglobin goal greater than 7.5. #Acute hyponatremia: Sodium is now 131 from 135 yesterday. She is asymptomatic. -Hydration as above -Continue to monitor #Chronic medical problems: Hyperlipidemia, CAD, hypertension, peripheral neuropathy, -Continue home atorvastatin, aspirin, lisinopril, gabapentin, carvedilol DVT prophylaxis with heparin Consistent carbohydrate 2 diet Full code Problem List: 1. Influenza 2. Renal insufficiency Pain Ratin Pain Location: n/a Pain Goal: Remain pain free Pain Plan: per pathway Tomorrow's Labs & Rationales: cbc bep DVT/Prophylaxis: mechanical, pharmacological Bassem Sorensen 05/20/17 1507: Attending MD Review Statement Attending Statement Attending MD Statement: examined this patient, discuss w/resident/PA/CORRECTIONAL PROBATION OFFICER, agreed w/resident/PA/CORRECTIONAL PROBATION OFFICER, discussed with family, reviewed EMR data (avail), discussed with nursing, discussed with case mgmt, reviewed images, amended to note Attending Assessment/Plan: Influenza A- cont on tamiflu renal dose. Anemia- hb better today at 8.3 after 1 U pRBc transfusion yesterday on 05/18 POP on CKD- cr upt ot 3.0, likely ATN vs Glomerulonephritis- Nephro following. workup ordered per their recommendations. monitor fluid status closely.
[2017-05-20 06:00] VITALS: BP 118/60
[2017-05-20 10:04] LABS: ABSOLUTE BASOPHIL COUNT 0 /CUMM (0.0-0.2); ABSOLUTE EOSINOPHIL COUNT 0 /CUMM (0.0-0.7); ABSOLUTE GRANULOCYTE CT 6.1 /CUMM (1.4-6.5); ABSOLUTE LYMPH COUNT 1.9 /CUMM (1.2-3.4); ABSOLUTE MONOCYTE COUNT 0.7 /CUMM (0.10-0.60); BASOPHIL % 0.4 % (0.0-2.0); EOSINOPHIL % 0.4 % (0-5); GRANULOCYTE % 70.2 % (42.2-75.2); HEMATOCRIT 28.4 % (37-47); MEAN CORPUSCULAR HGB 28.7 PG (27.0-31.0); MEAN PLATELET VOLUME 9.2 FL (7.4-10.4); PLATELET COUNT 187 /CUMM (130-400); RBC DISTRIBUTION WIDTH 15.8 % (11.5-14.5); RED BLOOD CELL CT 3.27 /CUMM (4.20-5.40); WHITE BLOOD CELL COUNT 8.7 /CUMM (4.8-10.8)
[2017-05-20 14:50] VITALS: BP 120/77
[2017-05-21 06:40] VITALS: BP 146/64
[2017-05-21 09:43] LABS: ABSOLUTE BASOPHIL COUNT 0 /CUMM (0.0-0.2); ABSOLUTE EOSINOPHIL COUNT 0 /CUMM (0.0-0.7); ABSOLUTE GRANULOCYTE CT 7.4 /CUMM (1.4-6.5); ABSOLUTE LYMPH COUNT 1.1 /CUMM (1.2-3.4); ABSOLUTE MONOCYTE COUNT 0.6 /CUMM (0.10-0.60); BASOPHIL % 0.3 % (0.0-2.0); EOSINOPHIL % 0.3 % (0-5); GRANULOCYTE % 80.6 % (42.2-75.2); HEMATOCRIT 26.1 % (37-47); MEAN CORPUSCULAR HGB 29.3 PG (27.0-31.0); MEAN CORPUSCULAR HGB CONC 33.5 G/DL (33.0-37.0); MEAN CORPUSCULAR VOLUME 87.3 FL (81.0-99.0); MEAN PLATELET VOLUME 10.3 FL (7.4-10.4); PLATELET COUNT 187 /CUMM (130-400); RBC DISTRIBUTION WIDTH 15.3 % (11.5-14.5); RED BLOOD CELL CT 2.99 /CUMM (4.20-5.40); WHITE BLOOD CELL COUNT 9.2 /CUMM (4.8-10.8)
--- NOTE | 2017-05-21 14:16 | PN- Att Addend ---
Attending Addendum Attending Brief Note Ms. Hummel is a 81-year-old female with past medical history of dementia, hypertension, hyperlipidemia, rheumatoid arthritis, systemic lupus erythematosus , chronic kidney disease followed by Dr. Kathleen, depression, diabetes mellitus, HFpEF followed by Dr. Yee who presented with dyspnea. Pateint seen/examined bedside. She c/o mild diffciutly in breathing, mild use of accessory muscles and possible constipation. obtain repeat chest xray and abdomen xray. 1. Acute hypoxic respiratory failure improving slowly 2. Type II VA 3. Heart Failure chronic 4. Sepsis secondary to influenza 5. Normocytic anemia 6. Hypomagnesemia 7. Acute on chronic kidney disease 8. hyponatremia #Sepsis secondary to influenza: -Continue renally dosed oseltamivir -obtain repeat chest xray #Acute on chronic kidney disease: Differential diagnosis includes ATN vs glomerulonephritis. Cr 1.9 today with good urine output. f/u nephrology #Heart Failure: EF greater than 65%, stage I diastolic dysfunction, and right ventricular pressure 6060 5 mmHg. -Lasix use if persistent fluid/edema on chest xray from today -Appreciate cardiology recommendations #Type II myocardial infarction: f/u cardiology for outpatient w/u. #anemia of chronci disease, h/h stable. #Chronic medical problems: Hyperlipidemia, CAD, hypertension, peripheral neuropathy, Continue home atorvastatin, aspirin, lisinopril, gabapentin, carvedilol DVT prophylaxis with heparin Consistent carbohydrate 2 diet Full code
[2017-05-21 15:10] VITALS: BP 122/68
--- NOTE | 2017-05-21 18:10 | RADIOLOGY REPORT ---
EXAMINATION: XR ABDOMEN MULTIPLE VIEWS CLINICAL INDICATION: Constipation and tenderness in left lower quadrant. COMPARISON: None TECHNIQUE: 2 views of the abdomen. FINDINGS: Scattered stool is seen in the colon without colonic distention. No free air or air-fluid levels seen. There is several phleboliths in the pelvis. No organomegaly. No gross bony abnormality. IMPRESSION: Moderate constipation. No evidence of obstruction.
--- NOTE | 2017-05-21 22:27 | Event Note ---
Event Note Event Note: Rapid response for patient due to labored breathing Patient is a 81 y/o female with PMH of heart failure, htn, CKD, SLE, RA currently being treated for acute hypoxic repsiratory failure, sepsis 2/2 influenza, heart failure with recent ECHO EF>65% with stage 1 diastolic dysfunction and moderate to severe pulmonary hypertension currently receiving gentle IV fluid hydration. Patient recently had ativan approximatley 30 minutes prior to rapid response. Patient was in severe respiratory distress. At the time patient was hypoxic requiring nonrebreather at 50% with O2 sats increasing to the 90s. On physical exam patient was fluid overloaded and was given 1 x lasix 20mg IV. An ABG and CXR was ordered: showing pulmonary congestion and respiratory acidosis with hypercapnia (7.20/58/131/98/22). Previous EKG and trop done recently. Trop was 0.17 down from 0.98 from previous. Patient was transferred to the telemetry for closer monitoring. Patient was given another dose of lasix 20mg IV. Patient has respiratory failure likely secondary to a combination of decompensated heart failure with volume overload secondary to IV fluid hydration and acute respiratory hypercapnia secondary to benzo. Patient will be in ICU as tele hold Respiratory therapy is on board Repeat ABGs show improvement in respiratory acidosis with BIPAP. Continue to monitor. Repeat EKG and Trop @4:30AM proBNP ordered Repeat ABG @ 12:45
[2017-05-21 23:00] VITALS: BP 160/70
--- NOTE | 2017-05-21 23:34 | RADIOLOGY REPORT ---
EXAMINATION: XR PORTABLE CHEST CLINICAL INFORMATION: Respiratory distress COMPARISON: Multiple exams. Most recent chest x-ray 05/21/2017, 5:19 PM TECHNIQUE: Portable portable frontal view of the chest was obtained. 10:41 PM FINDINGS: Diffuse patchy airspace disease with central hilar pulmonary vascular congestion. There is peripheral consolidation at the superior right upper lobe, likely due to pulmonary edema, is increasing in density since prior exam today. The severity of the pulmonary vascular congestion is similar to the prior chest x-ray today. Probable small right pleural effusion. Left pleural effusion not evident. IMPRESSION: Persistent pulmonary vascular congestion consistent with congestive heart failure. Increasing consolidation right upper lobe likely from pulmonary edema.
--- NOTE | 2017-05-22 07:26 | PN- Housestaff ---
Subjective Follow-up For: Influenza. CHF Acute respiratory failure. Subjective: Ms Giraldo was seen and examined this morning. She appears comfortable and is currently on BiPAP. She was transferred from overnight after an episode of desaturation and respiratory distress. She denies any active pain. She denies and fever, chills, nausea or vomiting. Her daughter and granddaughter were present at bedside. Review of Systems Constitutional: Reports: see HPI, chills. Objective Last 24 Hrs of Vital Signs/I&O Vital Signs Date Time Temp Pulse Resp B/P B/P Pulse O2 O2 Flow FiO2 Mean Ox Delivery Rate 05/22 1102 80 140/60 05/22 0847 52 99 05/22 08 99 Nasal 3.0L Cannula 05/22 799 98.7 49 20 142/62 99 Nasal 3.0L Cannula 05/22 0540 52 99 05/22 0337 61 99 05/22 0140 55 95 05/22 0000 95 BIPAP 50% 05/21 2313 118 97 05/21 2300 98.3 65 20 160/70 95 BIPAP 50% 05/21 2132 72 150/70 05/21 1600 94 Nasal 4.0L Cannula 05/21 1510 97.7 66 20 122/68 100 Intake & Output 05/22 1600 05/22 0800 05/22 0000 Intake Total 431 600 Output Total 1700 700 Balance -1269 -100 Intake, IV 431 600 Number 1 Bowel Movements Output, Urine 1700 700 Physical Exam General Appearance: Alert, Oriented X3, Cooperative Cardiovascular: Regular Rate, Normal S1, Normal S2 Lungs: Clear to Auscultation, Rhonchi and Rales Abdomen: Normal Bowel Sounds, Soft, No Tenderness Neurological: Normal Speech, Somnolent Extremities: No Edema Vascular: Normal Pulses Current Medications: Current Medications Sig/Hermelinda Start time Last Medication Dose Route Stop Time Status Admin Acetaminophen 1,000 MG Q6P PRN 05/16 1430 AC 05/19 IV 2244 Alprazolam 0.25 MG ONCE ONE 05/21 2145 DC 05/21 PO 05/21 2146 2157 Aspirin Buffered 81 MG DAILY 05/17 1000 AC 05/22 PO 1102 Atorvastatin Calcium 40 MG 1700 05/17 1700 AC 05/21 PO 1808 Benzocaine/Menthol 1 DENIS Q2P PRN 05/17 0730 AC PO Carvedilol 3.125 MG BID 05/16 1448 AC 05/22 PO 1102 Furosemide 20 MG 7:30 AM, & 4:30 PM 05/22 1130 AC 05/22 IV 05/22 2355 1200 Furosemide 20 MG ONCE ONE 05/22 0045 DC 05/22 IV 05/22 0046 0104 Furosemide 20 MG ONCE ONE 05/21 2245 DC 05/21 IV 05/21 2246 2239 Furosemide 40 MG .STK-MED ONE 05/21 2234 DC IV 05/21 2235 Gabapentin 300 MG DAILY 05/16 1448 AC 05/22 PO 1102 Heparin Sodium 5,000 UNIT Q8 05/18 0830 AC 05/22 (Porcine) SC 0659 Insulin Aspart 0 TIDAC 05/19 2300 AC 05/21 SC 1809 Insulin Aspart Prota 25 UNIT 0700,1700 05/17 0700 AC 05/22 70%/Aspart 30% SC 0721 Oseltamivir Phosphate 30 MG DAILY 05/18 1000 DC 05/21 PO 05/22 0959 0857 Oxycodone/ 2 TAB Q6P PRN 05/16 1430 AC 05/18 Acetaminophen PO 0152 Sodium Chloride 1,000 ML Q10H 05/18 1545 DC 05/22 IV 0032 Assessment/Plan Assessment: Ms. Hummel is a 81-year-old female with past medical history of dementia, hypertension, hyperlipidemia, rheumatoid arthritis, systemic lupus erythematosus , chronic kidney disease followed by Dr. Kathleen, depression, diabetes mellitus, HFpEF followed by Dr. Yee who presented with dyspnea. 1. Acute hypoxic respiratory failure 2. Type II MO 3. Heart Failure 4. Sepsis secondary to influenza 5. Normocytic anemia 6. Hypomagnesemia 7. Acute on chronic kidney disease 8. Acute hyponatremia She had to be transferred to telemetry (in the ICU) for closer moniting. #Sepsis secondary to influenza, #Resolved She met 3/4 SIRS criteria (tachycardia, tachypnea, leukocytosis) on admission. Flu swab was positive for influenza, indicating source of her sepsis. CT chest was also done which showed groundglass opacities and small bilateral pleural effusions. She has had no further fevers and she looks much more awake today. #Acute on chronic kidney disease: Monitor Renal Ultrasound, to rule out renal Artery Stenosis. #Heart Failure: Patient has history of heart failure with preserved ejection fraction. Repeat echocardiogram shows EF greater than 65%, stage I diastolic dysfunction. Patient will need to be diuresed as it appears that her respiratory distress may have been due to fluid overload. IV Lasix 20 MG BID. Will moritor C-xray prior to any addtional diuretics. Owing to the fact that patient Cr drastically increased, we suspect Lasix Naivity, will order a Renal Ultrasound doppler to rule out LISA. Appreciate cardiology recommendations #Type II myocardial infarction: Patient likely had demand ischemia secondary to acute heart failure. Troponins trended down. No indication for cardiac cath. Troponin: 13.15, currently pending, will trend till peak. #Hypomagnesemia: Resolved. #Normocytic anemia: Patient's hemoglobin went from 9.7-7.8 on heparin drip. There is concern for bleeding at this time though there is no obvious source. She was transfused 1 unit of blood on 05/18/2017. Repeat hemoglobin showed good response. LDH is normal. -Guaiac stool -Hemoglobin goal greater than 7.5. #Acute hyponatremia: Sodium is now 143 from 139 yesterday. She is asymptomatic. -Hydration as above -Continue to monitor #Chronic medical problems: Hyperlipidemia, CAD, hypertension, peripheral neuropathy, -Continue home atorvastatin, aspirin, lisinopril, gabapentin, carvedilol DVT prophylaxis with heparin Consistent carbohydrate 2 diet Full code Problem List: 1. Influenza 2. Renal insufficiency Pain Ratin Pain Location: No Pain endorsed Pain Goal: Remain pain free Pain Plan: Percocet Tomorrow's Labs & Rationales: CBC: monitor H/H in the setting of acute illness ICU Bundle: monitro electrolyetes in acutely ill
[2017-05-22 08:00] VITALS: BP 142/62
--- NOTE | 2017-05-22 10:47 | PN- Nephrology ---
Assessment/Plan Assessment: 1. chronic kidney disease stage IV secondary to diabetic nephropathy with a baseline creatinine level that has generally ranged from 1.5 to the low 2's. She has a history of diabetic nephropathy 2. Influenza 3 pneumonia secondary to #2 Suggestion: 1. Continue with strict I's and O's and daily weights 2. Please make sure total creatinine was performed on the 24-hour urine, without the 24-hour urine for total creatinine which can be run off of the specimen that was sent, and, hence cannot be made to the accuracy of the collection. It is expected that a gentleman will produce 20-25 mg/kg per day of creatinine. 3. May need to continue or order a hepatitis profile. 4. I do not see that a serum immunoelectrophoresis and serum free light chains have been ordered Subjective Subjective: Patients over the cough. pneumonia. She has flu. Her breathing is better. Objective Vital Signs and I&Os Vital Signs Date Time Temp Pulse Resp B/P B/P Pulse O2 O2 Flow FiO2 Mean Ox Delivery Rate 05/22 0747 52 99 05/22 0540 52 99 05/22 0337 61 99 05/22 0140 55 95 05/22 0000 95 BIPAP 50% 05/21 2313 118 97 05/21 2300 98.3 65 20 160/70 95 BIPAP 50% 05/21 2132 72 150/70 05/21 1600 94 Nasal 4.0L Cannula 05/21 1510 97.7 66 20 122/68 100 Intake & Output 05/22 1600 05/22 0400 05/21 1600 05/21 0400 05/20 1600 05/20 0400 Intake Total 431 600 650 900 960 882 Output Total 5960 746 0547 1100 600 Balance -1269 -100 -1450 900 -140 282 Intake, IV 431 600 600 300 600 300 Intake, Oral 50 600 360 582 Number 1 0 Bowel Movements Output, Urine 8956 311 0191 1100 600 Patient 206 lb Weight Current Medications: Current Medications Sig/Hermelinda Start time Last Medication Dose Route Stop Time Status Admin Acetaminophen 1,000 MG Q6P PRN 05/16 1430 AC 05/19 IV 2244 Alprazolam 0.25 MG ONCE ONE 05/21 2144 DC 05/21 PO 05/21 2145 215 Aspirin Buffered 81 MG DAILY 05/17 1000 AC 05/21 PO 0856 Atorvastatin Calcium 40 MG 1700 05/17 1700 AC 05/21 PO 1808 Benzocaine/Menthol 1 DENIS Q2P PRN 05/17 0730 AC PO Carvedilol 3.125 MG BID 05/16 1448 AC 05/21 PO 2132 Furosemide 20 MG ONCE ONE 05/22 0045 DC 05/22 IV 05/22 0046 0104 Furosemide 20 MG ONCE ONE 05/21 2245 DC 05/21 IV 05/21 2246 2239 Furosemide 40 MG .STK-MED ONE 05/21 2234 DC IV 05/21 2235 Gabapentin 300 MG DAILY 05/16 1448 AC 05/21 PO 0856 Heparin Sodium 5,000 UNIT Q8 05/18 0830 AC 05/22 (Porcine) SC 0659 Insulin Aspart 0 TIDAC 05/19 2300 AC 05/21 SC 1809 Insulin Aspart Prota 25 UNIT 0700,1700 05/17 0700 AC 05/22 70%/Aspart 30% SC 0721 Oseltamivir Phosphate 30 MG DAILY 05/18 1000 DC 05/21 PO 05/22 0959 0857 Oxycodone/ 2 TAB Q6P PRN 05/16 1430 AC 05/18 Acetaminophen PO 0152 Sodium Chloride 1,000 ML Q10H 05/18 1545 DC 05/22 IV 0032 Results Pertinent Lab Results: Laboratory Tests 05/22 05/22 05/22 05/22 0535 0450 0450 0135 Blood Gas pH (7.35 - 7.45 PH) 7.30 *L 7.28 *L pCO2 (35 - 45 TORR) 45 47 H pO2 (80 - 100 TORR) 91 82 HCO3 (21 - 28 MEQ/L) 22 22 ABG O2 Sat (Measured) (>96.0 %) 96.0 95.0 L P-50 (Temp Corrected) Y Y Carboxyhemoglobin (1.5 - 5.0 %) 0.7 L 0.5 L O2 Concentration % 40% 40% Temperature (97.0 - 100.0 FARH) 98.2 98.3 Respiration Rate (BPM) 24 24 O2 Delivery Method VISION-FFM VISION-FFM Vent Mode ST ST Expiratory Pressure (CM H2O P) 6 6 Inspiratory Pressure (CM H2O P) 20 20 Chemistry Sodium (137 - 145 mmol/L) 143 Potassium (3.5 - 5.1 mmol/L) 4.8 Chloride (98 - 107 mmol/L) 109 H Carbon Dioxide (22 - 30 mmol/L) 22 Anion Gap (5 - 16) 12 BUN (7 - 17 mg/dL) 64 H Creatinine (0.5 - 1.0 mg/dL) 2.0 H Estimated GFR (>60 ml/min) 24 L BUN/Creatinine Ratio (7 - 25 %) 32.0 H Troponin I (< 0.11 ng/ml) 0.18 *H Miscellaneous Phlebotomy Draw Site RIGHT RADIAL RIGHT RADIAL 05/21 05/21 2230 2030 Blood Gas pH (7.35 - 7.45 PH) 7.20 *L pCO2 (35 - 45 TORR) 58 H pO2 (80 - 100 TORR) 131 H HCO3 (21 - 28 MEQ/L) 22 ABG O2 Sat (Measured) (>96.0 %) 98.0 Carboxyhemoglobin (1.5 - 5.0 %) 0.3 L O2 Concentration % 100 O2 Delivery Method NRB Chemistry Troponin I (< 0.11 ng/ml) 0.17 *H Veh-P-Itgyowbljcf Pept (<125 pg/mL) 3540 H Miscellaneous Phlebotomy Draw Site RIGHT BRACHIAL 05/21 05/20 0815 0939 Chemistry Sodium (137 - 145 mmol/L) 139 138 Potassium (3.5 - 5.1 mmol/L) 4.5 4.9 Chloride (98 - 107 mmol/L) 111 H 108 H Carbon Dioxide (22 - 30 mmol/L) 21 L 21 L Anion Gap (5 - 16) 7 9 BUN (7 - 17 mg/dL) 69 H 87 H Creatinine (0.5 - 1.0 mg/dL) 1.9 H 3.0 H Estimated GFR (>60 ml/min) 26 L 15 L BUN/Creatinine Ratio (7 - 25 %) 36.3 H 29.0 H Cortisol AM Sample (4.46 - 22.7 ug/dL) 12.3 Hematology CBC w Diff NO MAN DIFF REQ NO MAN DIFF REQ WBC (4.8 - 10.8 /CUMM) 9.2 8.7 RBC (4.20 - 5.40 /CUMM) 2.99 L 3.27 L Hgb (12.0 - 16.0 G/DL) 8.7 L 9.4 L Hct (37 - 47 %) 26.1 L 28.4 L MCV (81.0 - 99.0 FL) 87.3 87.0 MCH (27.0 - 31.0 PG) 29.3 28.7 RDW (11.5 - 14.5 %) 15.3 H 15.8 H Plt Count (130 - 400 /CUMM) 187 187 MPV (7.4 - 10.4 FL) 10.3 9.2 Gran % (42.2 - 75.2 %) 80.6 H 70.2 Lymphocytes % (20.5 - 51.1 %) 12.2 L 21.4 Monocytes % (1.7 - 9.3 %) 6.6 7.6 Eosinophils % (0 - 5 %) 0.3 0.4 Basophils % (0.0 - 2.0 %) 0.3 0.4 Absolute Granulocytes (1.4 - 6.5 /CUMM) 7.4 H 6.1 Absolute Lymphocytes (1.2 - 3.4 /CUMM) 1.1 L 1.9 Absolute Monocytes (0.10 - 0.60 /CUMM) 0.6 0.7 H Absolute Eosinophils (0.0 - 0.7 /CUMM) 0 0 Absolute Basophils (0.0 - 0.2 /CUMM) 0 0 PUBS MCHC (33.0 - 37.0 G/DL) 33.5 33.0 ESR Westergren (0 - 20 MM) 70 H
--- NOTE | 2017-05-22 11:29 | Cons- Pulmonary ---
General Information and HPI Consulting Request Date of Consult: 05/22/17 Requested By: Maurice Reason for Consult: Acute hypercapnic history failure History of Present Illness: Patient is 81-year-old woman with hypertensive hypertensive heart disease mitral regurgitation admitted with acute kidney injury now, complicated by congestive heart failure acute hypercapnic respiratory failure in the setting of volume repletion. Patient is diuresed and is improved on 3 L oxygen saturation 97% BiPAP no longer necessary. Patient continues to have acute kidney injury. Allergies/Medications Allergies: Coded Allergies: Penicillins (Severe, ANAPHYLAXIS/RASH 10/29/15) Home Med List: Aspirin (Lo-Dose Aspirin EC) 81 MG TABLET.DR 1 TAB PO DAILY HEART/BLOOD ( Reported) Atorvastatin Calcium 40 MG TABLET 1 TAB PO DAILY CHOLESTEROL (Reported) Carvedilol 3.125 MG TABLET 1 TAB PO BID HEART/BP (Reported) Dulaglutide (Trulicity) 1.5 MG/0.5 ML PEN.INJCTR 1.5 MG SC QTHURS DM ( Reported) Ergocalciferol (Vitamin D2) (Vitamin D2) 50,000 UNIT CAPSULE 1 CAP PO QW VITAMIN SUPPORT (Reported) Gabapentin 300 MG CAPSULE 1 CAP PO DAILY NERVE PAIN (Reported) Hydrochlorothiazide 12.5 MG TABLET 1 TAB PO DAILY WATER RETENTION (Reported) Insulin Aspart Protam & Aspart (Novolog Mix 70-30 Flexpen Syrn) 100 UNIT/ML (70- 30) INSULN.PEN 25 UNITS SC BIDAC DIABETES TAKE 25 UNITS BEFORE BREAKFAST AND BEFORE DINNER CHECK BLOOD SUGAR BEFORE BREAKFAST AND DINNER AND KEEP RECORD Lisinopril 5 MG TABLET 1 TAB PO DAILY BP (Reported) Review of Systems Review of Systems Constitutional: Denies: chills, fever. Cardiovascular: Reports: edema. Denies: chest pain. Respiratory: Reports: short of breath. Denies: cough, hemoptysis, sputum production, wheezing. GI: Denies: abdominal pain, diarrhea, melena. Past History Travel History Traveled to [place] past 21 day No Medical History Blood Transfusion Hx: No Neurological: EARLY DEMENTIA EENT: NONE Cardiovascular: hypertension, hyperlipidemia Respiratory: NONE Gastrointestinal: NONE Hepatic: NONE Renal: NONE Musculoskeletal: rheumatoid arthritis, LUPUS Psychiatric: depression Endocrine: diabetes Blood Disorders: anemia Cancer(s): NONE LEGAL ASSOCIATE/Reproductive: NONE Other Medical Hx: LUPUS Surgical History Surgical History: hysterectomy Family History Relations & Conditions If Any: grandfather FH: prostate cancer DAUGHTER Blood clots FH: diabetes mellitus FHx: hypertension SON Blood clots Psychosocial History Where Do You Live? Home Who Do You Live With? self Services at Home: None Primary Language: Divehi Smoking Status: Former Smoker Functional Ability ADLs Independent: dressing, eating, toileting, bathing. Ambulation: walker IADLs Independent: shopping, housework, finances, food prep, telephone, transportation , medication admin. Exam & Diagnostic Data Last 24 Hrs of Vital Signs/I&O Vital Signs Date Time Temp Pulse Resp B/P B/P Pulse O2 O2 Flow FiO2 Mean Ox Delivery Rate 05/22 1102 80 140/60 05/22 0847 52 99 05/22 0540 52 99 05/22 0337 61 99 05/22 0140 55 95 05/22 0000 95 BIPAP 50% 05/21 2313 118 97 05/21 2300 98.3 65 20 160/70 95 BIPAP 50% 05/21 2132 72 150/70 05/21 1600 94 Nasal 4.0L Cannula 05/21 1510 97.7 66 20 122/68 100 Intake & Output 05/22 1600 05/22 0800 05/22 0000 Intake Total 431 600 Output Total 1700 700 Balance -1269 -100 Intake, IV 431 600 Number 1 Bowel Movements Output, Urine 1700 700 Oxygen saturation 3 L 97% exam for chest shows diminished breath sounds occasional crackles are no wheezes cardiac exam shows regular S1 and S2 with soft systolic ejection murmur abdomen is soft nontender abdomen have 1+ symmetrical lower extremity edema Last 48 Hrs of Labs/Zaire: Laboratory Tests 05/22/17 0535: pH 7.30 *L, pCO2 45, pO2 91, HCO3 22, ABG O2 Sat (Measured) 96.0, P-50 (Temp Corrected) Y, Carboxyhemoglobin 0.7 L, O2 Concentration % 40%, Temperature 98.2 , Respiration Rate 24, O2 Delivery Method VISION-FFM, Vent Mode ST, Expiratory Pressure 6, Inspiratory Pressure 20, Phlebotomy Draw Site RIGHT RADIAL 05/22/17 0450: Troponin I 0.18 *H 05/22/17 0450: Anion Gap 12, Estimated GFR 24 L, BUN/Creatinine Ratio 32.0 H 05/22/17 0135: pH 7.28 *L, pCO2 47 H, pO2 82, HCO3 22, ABG O2 Sat (Measured) 95.0 L, P-50 ( Temp Corrected) Y, Carboxyhemoglobin 0.5 L, O2 Concentration % 40%, Temperature 98.3, Respiration Rate 24, O2 Delivery Method VISION-FFM, Vent Mode ST, Expiratory Pressure 6, Inspiratory Pressure 20, Phlebotomy Draw Site RIGHT RADIAL 05/21/17 2230: pH 7.20 *L, pCO2 58 H, pO2 131 H, HCO3 22, ABG O2 Sat (Measured) 98.0, Carboxyhemoglobin 0.3 L, O2 Concentration % 100, O2 Delivery Method NRB, Phlebotomy Draw Site RIGHT BRACHIAL 05/21/17 2030: Troponin I 0.17 *H, [id number]-R-Niqdfwptkug Pept 3540 H 05/21/17 0815: Anion Gap 7, Estimated GFR 26 L, BUN/Creatinine Ratio 36.3 H, CBC w Diff NO MAN DIFF REQ, RBC 2.99 L, MCV 87.3, MCH 29.3, RDW 15.3 H, MPV 10.3, Gran % 80.6 H, Lymphocytes % 12.2 L, Monocytes % 6.6, Eosinophils % 0.3, Basophils % 0.3, Absolute Granulocytes 7.4 H, Absolute Lymphocytes 1.1 L, Absolute Monocytes 0.6, Absolute Eosinophils 0, Absolute Basophils 0, PUBS MCHC 33.5 Assessment/Plan Impression/Plan: 81-year-old with hypertensive heart disease admitted with acute kidney injury in the setting of diuresis developed worsening congestive heart failure and acute hypercapnic respiratory failure which is improved. She continues to have evidence of acute kidney injury. Recommendations: Continue negative fluid balance as renal function allows. Taper FiO2. BiPAP appears no longer necessary. Patient should be evaluated for sleep apnea Consult Acknowledgment - Thank you for your consult request.
--- NOTE | 2017-05-22 12:54 | PN- Cardiology ---
Subjective Subjective: The patient was doing well until last night when she developed respiratory distress. She was moved to intensive care unit as a telemetry hold. Her blood gas showed respiratory acidosis with a pH of 7.20 PCO2 of 58 and a PO2 of 131. She was placed on BiPAP and has improved. However this morning her pH was still low at 7.3 and PCO2 borderline at 45. Her BUN and creatinine have improved to 64 and 2.0. Her creatinine is about at her baseline. Troponins are 0.17 and 0.18, which may just be residual from her previous troponin rise. However a third troponin would be important in determining this. She does not describe chest pain during this episode, just shortness of breath. Objective Vital Signs and I&Os Vital Signs Date Time Temp Pulse Resp B/P B/P Pulse O2 O2 Flow FiO2 Mean Ox Delivery Rate 05/22 1102 80 140/60 05/22 0847 52 99 05/22 08 99 Nasal 3.0L Cannula 05/22 799 98.7 49 20 142/62 99 Nasal 3.0L Cannula 05/22 0540 52 99 05/22 0337 61 99 05/22 0140 55 95 05/22 0000 95 BIPAP 50% 05/21 2313 118 97 05/21 2300 98.3 65 20 160/70 95 BIPAP 50% 05/21 2132 72 150/70 05/21 1600 94 Nasal 4.0L Cannula 05/21 1510 97.7 66 20 122/68 100 Intake & Output 05/22 1600 05/22 0800 05/22 0000 05/21 1600 05/21 0800 05/21 0000 Intake Total 431 600 650 900 Output Total 1700 951 843 4318 Balance -1269 -100 -600 -850 900 Intake, IV 431 600 600 300 Intake, Oral 50 600 Number 1 0 Bowel Movements Output, Urine [phone] 8961 Physical Exam: She is lethargic but arousable HEENT exam grossly normal Neck veins are not distended Chest diffuse rhonchi and mild to moderate wheezing noted Heart regular rhythm soft heart sounds no murmurs Extremities no edema Current Medications: Current Medications Sig/Hermelinda Start time Last Medication Dose Route Stop Time Status Admin Acetaminophen 1,000 MG Q6P PRN 05/16 1430 AC 05/19 IV 2244 Alprazolam 0.25 MG ONCE ONE 05/21 2144 DC 05/21 PO 01/07 2146 2157 Aspirin Buffered 81 MG DAILY 05/17 1000 AC 05/22 PO 1102 Atorvastatin Calcium 40 MG 1700 05/17 1700 AC 05/21 PO 1808 Benzocaine/Menthol 1 DENIS Q2P PRN 05/17 0730 AC PO Carvedilol 3.125 MG BID 05/16 1448 AC 05/22 PO 1102 Furosemide 20 MG 7:30 AM, & 4:30 PM 05/22 1130 AC IV Furosemide 20 MG ONCE ONE 05/22 0045 DC 05/22 IV 05/22 0046 0104 Furosemide 20 MG ONCE ONE 05/21 2245 DC 05/21 IV 05/21 2246 2239 Furosemide 40 MG .STK-MED ONE 05/21 2234 DC IV 05/21 2235 Gabapentin 300 MG DAILY 05/16 1448 AC 05/22 PO 1102 Heparin Sodium 5,000 UNIT Q8 05/18 0830 AC 05/22 (Porcine) SC 0659 Insulin Aspart 0 TIDAC 05/19 2300 AC 05/21 SC 1809 Insulin Aspart Prota 25 UNIT 0700,1700 05/17 0700 AC 05/22 70%/Aspart 30% SC 0721 Oseltamivir Phosphate 30 MG DAILY 05/18 1000 DC 05/21 PO 05/22 0959 0857 Oxycodone/ 2 TAB Q6P PRN 05/16 1430 AC 05/18 Acetaminophen PO 0152 Sodium Chloride 1,000 ML Q10H 05/18 1545 DC 05/22 IV 0032 Results Last 48 Hrs of Labs/Mics: Laboratory Tests 05/22/17 1000: Urine Total Volume Cancelled, Ur Sodium 24 Hour Cancelled, Ur Potassium 24 Hour Cancelled 05/22/17 0535: pH 7.30 *L, pCO2 45, pO2 91, HCO3 22, ABG O2 Sat (Measured) 96.0, P-50 (Temp Corrected) Y, Carboxyhemoglobin 0.7 L, O2 Concentration % 40%, Temperature 98.2 , Respiration Rate 24, O2 Delivery Method VISION-FFM, Vent Mode ST, Expiratory Pressure 6, Inspiratory Pressure 20, Phlebotomy Draw Site RIGHT RADIAL 05/22/17 0450: Troponin I 0.18 *H 05/22/17 0450: Anion Gap 12, Estimated GFR 24 L, BUN/Creatinine Ratio 32.0 H 05/22/17 0135: pH 7.28 *L, pCO2 47 H, pO2 82, HCO3 22, ABG O2 Sat (Measured) 95.0 L, P-50 ( Temp Corrected) Y, Carboxyhemoglobin 0.5 L, O2 Concentration % 40%, Temperature 98.3, Respiration Rate 24, O2 Delivery Method VISION-FFM, Vent Mode ST, Expiratory Pressure 6, Inspiratory Pressure 20, Phlebotomy Draw Site RIGHT RADIAL 05/21/17 2230: pH 7.20 *L, pCO2 58 H, pO2 131 H, HCO3 22, ABG O2 Sat (Measured) 98.0, Carboxyhemoglobin 0.3 L, O2 Concentration % 100, O2 Delivery Method NRB, Phlebotomy Draw Site RIGHT BRACHIAL 05/21/17 2030: Troponin I 0.17 *H, Qtj-H-Bqcllmsceek Pept 3540 H 05/21/17 0815: Anion Gap 7, Estimated GFR 26 L, BUN/Creatinine Ratio 36.3 H, CBC w Diff NO MAN DIFF REQ, RBC 2.99 L, MCV 87.3, MCH 29.3, RDW 15.3 H, MPV 10.3, Gran % 80.6 H, Lymphocytes % 12.2 L, Monocytes % 6.6, Eosinophils % 0.3, Basophils % 0.3, Absolute Granulocytes 7.4 H, Absolute Lymphocytes 1.1 L, Absolute Monocytes 0.6, Absolute Eosinophils 0, Absolute Basophils 0, PUBS MCHC 33.5 Recent Imaging Studies: PATIENT: ALEJANDRINA CARLOS PRESENT AGE: 81 PATIENT ACCOUNT NO: [id number] : 37 LOCATION: [facility] ORDERING PHYSICIAN: Nani Lewis MD SERVICE DATE: 05/21/17 EXAM TYPE: RAD - XRY-PORTABLE CHEST XRAY EXAMINATION: XR PORTABLE CHEST CLINICAL INFORMATION: Respiratory distress COMPARISON: Multiple exams. Most recent chest x-ray 05/21/2017, 5:19 PM TECHNIQUE: Portable portable frontal view of the chest was obtained. 10:41 PM FINDINGS: Diffuse patchy airspace disease with central hilar pulmonary vascular congestion. There is peripheral consolidation at the superior right upper lobe, likely due to pulmonary edema, is increasing in density since prior exam today. The severity of the pulmonary vascular congestion is similar to the prior chest x-ray today. Probable small right pleural effusion. Left pleural effusion not evident. IMPRESSION: Persistent pulmonary vascular congestion consistent with congestive heart failure. Increasing consolidation right upper lobe likely from pulmonary edema. DICTATED BY: Dave Beverly MD DATE/TIME DICTATED:05/21/172325 ELECTRON BEAM WELDING MACHINE OPERATOR:MARTIN DATE/TIME TRANSCRIBED:05/21/172325 CONFIDENTIAL, DO NOT COPY WITHOUT APPROPRIATE AUTHORIZATION. <Electronically signed in Other Vendor System> SIGNED BY: Dave Beverly MD 05/21/17 4728 Assessment/Plan Assessment/Plan The patient has developed respiratory failure, likely on the basis of pulmonary congestion secondary to fluid overload. She seems improved now. She is diuresing. Her saturations are good on nasal oxygen. Her renal function has improved. She is back on IV Lasix. I recommend continuing her on IV Lasix today and then reassessing her renal function and clinical function and chest x-ray prior to giving her any more Lasix tomorrow, so as to avoid another episode of acute kidney injury. If she is doing well then giving her some oral Lasix would probably be in order. I recommend a third troponin just to make sure it is not rising again, although I think this is just residual from her previous troponin leak. Continue telemetry? Yes
--- NOTE | 2017-05-22 15:15 | PN- Att Addend ---
Attending MD Review Statement Attending Statement Attending MD Statement: examined this patient, discuss w/resident/PA/HAND BINDERY ASSEMBLY WORKER, agreed w/resident/PA/HAND BINDERY ASSEMBLY WORKER, reviewed EMR data (avail), discussed w/nursing Attending Assessment/Plan: Laboratory Tests 05/22/17 1000: Urine Total Volume Cancelled, Ur Sodium 24 Hour Cancelled, Ur Potassium 24 Hour Cancelled 05/22/17 0600: Immunoelectrophoresis Pending, Ref Lab Test Result Pending 05/22/17 0535: pH 7.30 *L, pCO2 45, pO2 91, HCO3 22, ABG O2 Sat (Measured) 96.0, P-50 (Temp Corrected) Y, Carboxyhemoglobin 0.7 L, O2 Concentration % 40%, Temperature 98.2 , Respiration Rate 24, O2 Delivery Method VISION-FFM, Vent Mode ST, Expiratory Pressure 6, Inspiratory Pressure 20, Phlebotomy Draw Site RIGHT RADIAL 05/22/17 0450: Troponin I 0.18 *H 05/22/17 0450: Anion Gap 12, Estimated GFR 24 L, BUN/Creatinine Ratio 32.0 H 05/22/17 0135: pH 7.28 *L, pCO2 47 H, pO2 82, HCO3 22, ABG O2 Sat (Measured) 95.0 L, P-50 ( Temp Corrected) Y, Carboxyhemoglobin 0.5 L, O2 Concentration % 40%, Temperature 98.3, Respiration Rate 24, O2 Delivery Method VISION-FFM, Vent Mode ST, Expiratory Pressure 6, Inspiratory Pressure 20, Phlebotomy Draw Site RIGHT RADIAL 05/21/17 2230: pH 7.20 *L, pCO2 58 H, pO2 131 H, HCO3 22, ABG O2 Sat (Measured) 98.0, Carboxyhemoglobin 0.3 L, O2 Concentration % 100, O2 Delivery Method NRB, Phlebotomy Draw Site RIGHT BRACHIAL 05/21/17 2030: Troponin I 0.17 *H, Nsu-K-Aacrnohbnfr Pept 3540 H Vital Signs Date Time Temp Pulse Resp B/P B/P Pulse O2 O2 Flow FiO2 Mean Ox Delivery Rate 05/22 1417 Nasal 3.0L Cannula 05/22 1102 80 140/60 05/22 0847 52 99 05/22 08 99 Nasal 3.0L Cannula 05/22 799 98.7 49 20 142/62 99 Nasal 3.0L Cannula 05/22 0540 52 99 05/22 0337 61 99 05/22 0140 55 95 05/22 0000 95 BIPAP 50% 05/21 2313 118 97 05/21 2300 98.3 65 20 160/70 95 BIPAP 50% 05/21 2132 72 150/70 05/21 1600 94 Nasal 4.0L Cannula 05/21 1510 97.7 66 20 122/68 100 SPEP- reveals a faint M spike migrating in the Gamma globulin region. 81-year-old female with past medical history of dementia, hypertension, hyperlipidemia, rheumatoid arthritis, systemic lupus erythematosus, chronic kidney disease followed by Dr. Kathleen, depression, diabetes mellitus, HFpEF followed by Dr. Yee who presented with dyspnea. Sepsis secondary to Influenza - finished tamiflu. sepsis resolved now. cont to monitor closely. POP on CKD- cr better than peak at 3.5, today at 2.0, likely secondary to ATN . Nephrology following. Will order arterial doppler renal. SPEP results as above. await immunofixation. Await UPEP. Acute Diastolic CHF exacerbation. CXR shows fluid overload. pt very senstive to lasix. so will give iv lasix 20mg q12h. monitor I & O and daily wt. will get cardiology to reevaluate the patinet. DVT proph- pt on sc heparin. d/w pt the care plan.
[2017-05-22 16:00] VITALS: BP 140/70
--- NOTE | 2017-05-22 19:38 | ULTRASOUND REPORT ---
EXAMINATION: US RENAL WITH DOPPLER CLINICAL INFORMATION: 81-year-old woman with increased sensitivity to Lasix. Evaluate for renal artery stenosis. COMPARISON: 05/18/2017 ultrasound TECHNIQUE: Grayscale and color and spectral Doppler assessment of the kidneys was attempted. Unfortunately, the exam is rather limited due to patient body habitus, inability to breath-hold, and difficulty with positioning. FINDINGS: The right kidney measures 12.3 x 5.1 x 6.1 cm. The peak systolic velocity in the distal right renal artery is 57.5 cm/s. It is 100 cm/s in the mid right renal artery and 149 the proximal right renal artery. It is 85.8 cm/s in the proximal aorta, giving a renal to aortic ratio of 1.7 The left kidney measures 10.3 x 5.8 x 6.1 cm. No Doppler images could be obtained on the left side. The bladder is decompressed by a a Herrera catheter. IMPRESSION: Limited exam. No evidence of renal artery stenosis on the right side.
[2017-05-22 23:26] VITALS: BP 148/92
[2017-05-23 05:38] LABS: ABSOLUTE BASOPHIL COUNT 0 /CUMM (0.0-0.2); ABSOLUTE EOSINOPHIL COUNT 0.1 /CUMM (0.0-0.7); ABSOLUTE GRANULOCYTE CT 6.2 /CUMM (1.4-6.5); ABSOLUTE LYMPH COUNT 1.5 /CUMM (1.2-3.4); ABSOLUTE MONOCYTE COUNT 0.7 /CUMM (0.10-0.60); BASOPHIL % 0.4 % (0.0-2.0); EOSINOPHIL % 0.8 % (0-5); GRANULOCYTE % 72.7 % (42.2-75.2); MEAN CORPUSCULAR HGB 28.8 PG (27.0-31.0); MEAN CORPUSCULAR HGB CONC 32.8 G/DL (33.0-37.0); MEAN CORPUSCULAR VOLUME 87.9 FL (81.0-99.0); MEAN PLATELET VOLUME 9.4 FL (7.4-10.4); PLATELET COUNT 224 /CUMM (130-400); RBC DISTRIBUTION WIDTH 14.9 % (11.5-14.5); RED BLOOD CELL CT 2.84 /CUMM (4.20-5.40); WHITE BLOOD CELL COUNT 8.5 /CUMM (4.8-10.8)
--- NOTE | 2017-05-23 07:15 | PN- Housestaff ---
See Addendum Subjective Follow-up For: CHF Influenza. Acute respiratory failure. Subjective: Ms Hummel was seen and examined this morning. Resting comfortably in bed. She appears more alert compared to our previous interraction. She denies any issues overnight. She states that she does feel better. She denies any chest pain. Denies any dyspnea. Denies any fever, chills, nausea, vomiting. Review of Systems Constitutional: Reports: see HPI. Objective Last 24 Hrs of Vital Signs/I&O Vital Signs Date Time Temp Pulse Resp B/P B/P Pulse O2 O2 Flow FiO2 Mean Ox Delivery Rate 05/23 0000 98 Nasal 3.0L Cannula 05/22 2326 97.8 63 15 148/92 98 Nasal 3.0L Cannula 05/22 2247 95 Nasal 3.0L Cannula 05/22 2204 73 142/72 05/22 2030 95 Nasal 3.0L Cannula 05/22 1600 98 Nasal 3.0L Cannula 05/22 1600 97.6 56 22 140/70 98 Nasal 3.0L Cannula 05/22 1417 Nasal 3.0L Cannula 05/22 1102 80 140/60 Intake & Output 05/23 1600 05/23 0800 05/23 0000 Intake Total 240 120 Output Total 600 1500 Balance -360 -1380 Intake, IV 0 0 Intake, Oral 240 120 Number 1 1 Bowel Movements Output, Urine 600 1500 Physical Exam General Appearance: Alert, Oriented X3, Cooperative Lymphatic: Cervical nl Cardiovascular: Regular Rate, Normal S1, Normal S2 Lungs: Diffuse Rhonchi and Rales noted. mild Crackles noted in the Lower Lobes Abdomen: Normal Bowel Sounds, Soft, No Tenderness Neurological: Normal Speech Extremities: No Edema Current Medications: Current Medications Sig/Hermelinda Start time Last Medication Dose Route Stop Time Status Admin Acetaminophen 1,000 MG Q6P PRN 05/16 1430 AC 05/19 IV 2244 Aspirin Buffered 81 MG DAILY 05/17 1000 AC 05/22 PO 1102 Atorvastatin Calcium 40 MG 1700 05/17 1700 AC 05/22 PO 1827 Benzocaine/Menthol 1 DENIS Q2P PRN 05/17 0730 AC PO Carvedilol 3.125 MG BID 05/16 1448 AC 05/22 PO 2204 Furosemide 20 MG 7:30 AM, & 4:30 PM 05/22 1130 DC 05/22 IV 05/22 2355 1827 Gabapentin 300 MG DAILY 05/16 1448 AC 05/22 PO 1102 Heparin Sodium 5,000 UNIT Q8 05/18 0830 AC 05/23 (Porcine) SC 0655 Insulin Aspart 0 TIDAC 05/19 2300 AC 05/21 SC 1809 Insulin Aspart Prota 25 UNIT 0700,1700 05/17 0700 DC 05/22 70%/Aspart 30% SC 1919 Oseltamivir Phosphate 30 MG DAILY 05/18 1000 DC 05/21 PO 05/22 0959 0857 Oxycodone/ 2 TAB Q6P PRN 05/16 1430 AC 05/18 Acetaminophen PO 0152 Last 24 Hrs of Lab/Zaire Results Last 24 Hrs of Labs/Mics: Laboratory Tests 05/23/17 0350: Anion Gap 11, Estimated GFR 27 L, Glucose 73, Calcium 8.4, Phosphorus 3.5, Magnesium 1.8, Total Bilirubin 0.2, AST 34, ALT 31, Albumin 2.4 L, CBC w Diff NO MAN DIFF REQ, RBC 2.84 L, MCV 87.9, MCH 28.8, RDW 14.9 H, MPV 9.4, Gran % 72.7, Lymphocytes % 18.0 L, Monocytes % 8.1, Eosinophils % 0.8, Basophils % 0.4 , Absolute Granulocytes 6.2, Absolute Lymphocytes 1.5, Absolute Monocytes 0.7 H , Absolute Eosinophils 0.1, Absolute Basophils 0, PUBS MCHC 32.8 L 05/22/17 1650: Troponin I 0.13 *H 05/22/17 1000: Urine Total Volume Cancelled, Ur Sodium 24 Hour Cancelled, Ur Potassium 24 Hour Cancelled Orders Radiology Findings: SERVICE DATE: 05/23/17-0500 EXAM TYPE: RAD - XRY-PORTABLE CHEST XRAY EXAMINATION: CR PORTABLE CHEST CLINICAL INFORMATION: Shortness of breath. Presumptive diagnosis of pulmonary edema. COMPARISON: Several prior chest x-rays, most recent of which is dated 05/21/2017. TECHNIQUE: Portable AP semierect view of the chest was obtained. FINDINGS: Cardiomediastinal silhouette is enlarged. Calcification of the aortic arch is seen. Central vascular congestion and progressive right lung perihilar opacities are seen with progressive density in the right upper lobe and the right lower lobe. Left perihilar opacities are similar to prior exam. Some indistinctness of the left hemidiaphragm is now noted, perhaps due to a small pleural effusion. Small right-sided pleural effusion is also seen. No pneumothorax. Bony structures are unremarkable. IMPRESSION: Findings are consistent with progressive congestive heart failure with asymmetric lesion of the alveolar edema, particularly affecting the right upper lobe and right lower lobe. Alternatively, superimposed pneumonia may be possible. Close clinical correlation is requested. DICTATED BY: Wilbert FOWLER,Carmen Leonard Assessment/Plan Assessment: Ms. Hummel is a 81-year-old female with past medical history of dementia, hypertension, hyperlipidemia, rheumatoid arthritis, systemic lupus erythematosus , chronic kidney disease followed by Dr. Kathleen, depression, diabetes mellitus, HFpEF followed by Dr. Yee who presented with dyspnea. 1. Acute hypoxic respiratory failure, likely due to fluid overlaod. 2. Type II GA 3. Heart Failure 4. Sepsis secondary to influenza, resolved. 5. Normocytic anemia 6. Hypomagnesemia 7. Acute on chronic kidney disease 8. Acute hyponatremia She had to be transferred to telemetry (in the ICU) for closer moniting. #Heart Failure: Patient has history of heart failure with preserved ejection fraction. Repeat echocardiogram shows EF greater than 65%, stage I diastolic dysfunction. Patient will need to be diuresed as it appears that her respiratory distress may have been due to fluid overload. She was given a one time IV 20 mg Lasix dose this am. She can likely be transition to PO Lasix from 05/24/2017. Owing to the fact that patient Cr drastically increased, we suspect Lasix Naivity, will order a Renal Ultrasound doppler to rule out LISA. Appreciate cardiology recommendations #Sepsis secondary to influenza, #Resolved She met 3/4 SIRS criteria (tachycardia, tachypnea, leukocytosis) on admission. Flu swab was positive for influenza, indicating source of her sepsis. CT chest was also done which showed groundglass opacities and small bilateral pleural effusions. She has remained Afebrile over the last 24 hours. #Acute on chronic kidney disease: Monitor Renal Ultrasound, to rule out renal Artery Stenosis. No evidence of LISA. Will conitnue to monitor Cr. #Type II myocardial infarction: Patient likely had demand ischemia secondary to acute heart failure. Troponins trended down. No indication for cardiac cath. Residual Peak was likely due to previous rise in Troponin from 05/17. #Hypomagnesemia: Resolved. #Normocytic anemia: Patients Hemoglobin has remianed Stable. Last H/H: 8.2/25.0. There is concern for bleeding at this time though there is no obvious source. She was transfused 1 unit of blood on 05/18/2017. Repeat hemoglobin showed good response. LDH is normal. -Guaiac stool -Hemoglobin goal greater than 7.5. #Acute hyponatremia: Sodium is now 144 from 143 yesterday. She is asymptomatic. -Continue to monitor #Chronic medical problems: Hyperlipidemia, CAD, hypertension, peripheral neuropathy, -Continue home atorvastatin, aspirin, lisinopril, gabapentin, carvedilol DVT prophylaxis with heparin Consistent carbohydrate 2 diet Full code Problem List: 1. Influenza 2. Renal insufficiency Pain Ratin Pain Location: No Pain Endorsed Pain Goal: Remain pain free Pain Plan: Acetaminophen Tomorrow's Labs & Rationales: CBC: Monitor H/H in the setting of acute illness BEP: Monitor electrolytes in the setting of acute illness
[2017-05-23 08:00] VITALS: BP 108/60
--- NOTE | 2017-05-23 08:20 | PN- Pulmonary ---
Subjective HPI/Critical Care Issues: Patient is awake alert comfortable on nasal oxygen. s He is diuresing and renal function is improved Objective Current Medications: Current Medications Sig/Hermelinda Start time Last Medication Dose Route Stop Time Status Admin Acetaminophen 1,000 MG Q6P PRN 05/16 1430 AC 05/19 IV 2244 Aspirin Buffered 81 MG DAILY 05/17 1000 AC 05/22 PO 1102 Atorvastatin Calcium 40 MG 1700 05/17 1700 AC 05/22 PO 1827 Benzocaine/Menthol 1 DENIS Q2P PRN 05/17 0730 AC PO Carvedilol 3.125 MG BID 05/16 1448 AC 05/22 PO 2204 Furosemide 20 MG 7:30 AM, & 4:30 PM 05/22 1130 DC 05/22 IV 05/22 2355 1827 Gabapentin 300 MG DAILY 05/16 1448 AC 05/22 PO 1102 Heparin Sodium 5,000 UNIT Q8 05/18 0830 AC 05/23 (Porcine) SC 0655 Insulin Aspart 0 TIDAC 05/19 2300 AC 05/21 SC 1809 Insulin Aspart Prota 25 UNIT 0700,1700 05/17 0700 DC 05/22 70%/Aspart 30% SC 1919 Oseltamivir Phosphate 30 MG DAILY 05/18 1000 DC 05/21 PO 05/22 0959 0857 Oxycodone/ 2 TAB Q6P PRN 05/16 1430 AC 05/18 Acetaminophen PO 0152 Vital Signs & I&O Last 24 Hrs of Vitals and I&O: Vital Signs Date Time Temp Pulse Resp B/P B/P Pulse O2 O2 Flow FiO2 Mean Ox Delivery Rate 05/23 0000 98 Nasal 3.0L Cannula 05/22 2326 97.8 63 15 148/92 98 Nasal 3.0L Cannula 05/22 2247 95 Nasal 3.0L Cannula 05/22 2204 73 142/72 05/22 2030 95 Nasal 3.0L Cannula 05/22 1600 98 Nasal 3.0L Cannula 05/22 1600 97.6 56 22 140/70 98 Nasal 3.0L Cannula 05/22 1417 Nasal 3.0L Cannula 05/22 1102 80 140/60 05/22 0847 52 99 Intake & Output 05/23 1600 05/23 0800 05/23 0000 Intake Total 240 120 Output Total 600 1500 Balance -360 -1380 Intake, IV 0 0 Intake, Oral 240 120 Number 1 1 Bowel Movements Output, Urine 600 1500 Saturations remained liters 98% exam for chest shows diminished breath sounds at the bases cardiac exam shows normal S1 and S2 without murmurs Impression/Plan Impression/Plan Impression/Plan: 81-year-old with hypertensive heart disease admitted with acute kidney injury in the setting of diuresis developed worsening congestive heart failure and acute hypercapnic respiratory failure which is improved. Respiratory status is improved with diuresis Recommendations: Continue negative fluid balance as renal function allows. Taper FiO2. BiPAP appears no longer necessary. Patient should be evaluated for sleep apnea after discharge no further pulmonary suggestions
--- NOTE | 2017-05-23 08:49 | RADIOLOGY REPORT ---
EXAMINATION: CR PORTABLE CHEST CLINICAL INFORMATION: Shortness of breath. Presumptive diagnosis of pulmonary edema. COMPARISON: Several prior chest x-rays, most recent of which is dated 05/21/2017. TECHNIQUE: Portable AP semierect view of the chest was obtained. FINDINGS: Cardiomediastinal silhouette is enlarged. Calcification of the aortic arch is seen. Central vascular congestion and progressive right lung perihilar opacities are seen with progressive density in the right upper lobe and the right lower lobe. Left perihilar opacities are similar to prior exam. Some indistinctness of the left hemidiaphragm is now noted, perhaps due to a small pleural effusion. Small right-sided pleural effusion is also seen. No pneumothorax. Bony structures are unremarkable. IMPRESSION: Findings are consistent with progressive congestive heart failure with asymmetric lesion of the alveolar edema, particularly affecting the right upper lobe and right lower lobe. Alternatively, superimposed pneumonia may be possible. Close clinical correlation is requested.
--- NOTE | 2017-05-23 10:52 | PN- Cardiology ---
Subjective Subjective: The patient is more alert today. She is not complaining of chest pain or shortness of breath. Her troponin continues to decrease and is probably just residual from the May 17 peak. Her renal function is slightly improved over yesterday. She continues to diuresis. Her chest x-ray today showed increasing edema on the right but this may be artifactual due to rotation. Objective Vital Signs and I&Os Vital Signs Date Time Temp Pulse Resp B/P B/P Pulse O2 O2 Flow FiO2 Mean Ox Delivery Rate 05/23 0000 98 Nasal 3.0L Cannula 05/22 2326 97.8 63 15 148/92 98 Nasal 3.0L Cannula 05/22 2247 95 Nasal 3.0L Cannula 05/22 2204 73 142/72 05/22 2030 95 Nasal 3.0L Cannula 05/22 1600 98 Nasal 3.0L Cannula 05/22 1600 97.6 56 22 140/70 98 Nasal 3.0L Cannula 05/22 1417 Nasal 3.0L Cannula 05/22 1102 80 140/60 Intake & Output 05/23 1600 05/23 0800 05/23 0000 05/22 1600 05/22 0800 05/22 0000 Intake Total 240 120 400 431 600 Output Total 600 1364 484 0668 700 Balance -360 -1380 -300 -1269 -100 Intake, IV 0 0 431 600 Intake, Oral 240 120 400 Number 1 1 1 1 Bowel Movements Output, Urine 600 8561 688 0665 700 Physical Exam: HEENT exam normal Chest moderate wheezing and a few rhonchi Heart regular rhythm no murmurs Extremities trace edema Current Medications: Current Medications Sig/Hermelinda Start time Last Medication Dose Route Stop Time Status Admin Acetaminophen 1,000 MG Q6P PRN 05/16 1430 AC 05/19 IV 2244 Aspirin Buffered 81 MG DAILY 05/17 1000 AC 05/22 PO 1102 Atorvastatin Calcium 40 MG 1700 05/17 1700 AC 05/22 PO 1827 Benzocaine/Menthol 1 DENIS Q2P PRN 05/17 0730 AC PO Carvedilol 3.125 MG BID 05/16 1448 AC 05/22 PO 2204 Furosemide 20 MG 0945 05/23 0945 DC IV 05/23 0946 Furosemide 20 MG 7:30 AM, & 4:30 PM 05/22 1130 DC 05/22 IV 05/22 2355 1827 Gabapentin 300 MG DAILY 05/16 1448 AC 05/22 PO 1102 Heparin Sodium 5,000 UNIT Q8 05/18 0830 AC 05/23 (Porcine) SC 0655 Insulin Aspart 0 TIDAC 05/19 2300 AC 05/21 SC 1809 Insulin Aspart Prota 25 UNIT 0700,1700 05/17 0700 DC 05/22 70%/Aspart 30% SC 1919 Oxycodone/ 2 TAB Q6P PRN 05/16 1430 AC 05/18 Acetaminophen PO 0152 Results Last 48 Hrs of Labs/Mics: Laboratory Tests 05/23/17 0350: Anion Gap 11, Estimated GFR 27 L, Glucose 73, Calcium 8.4, Phosphorus 3.5, Magnesium 1.8, Total Bilirubin 0.2, AST 34, ALT 31, Albumin 2.4 L, CBC w Diff NO MAN DIFF REQ, RBC 2.84 L, MCV 87.9, MCH 28.8, RDW 14.9 H, MPV 9.4, Gran % 72.7, Lymphocytes % 18.0 L, Monocytes % 8.1, Eosinophils % 0.8, Basophils % 0.4 , Absolute Granulocytes 6.2, Absolute Lymphocytes 1.5, Absolute Monocytes 0.7 H , Absolute Eosinophils 0.1, Absolute Basophils 0, PUBS MCHC 32.8 L 05/22/17 1650: Troponin I 0.13 *H 05/22/17 1000: Urine Total Volume Cancelled, Ur Sodium 24 Hour Cancelled, Ur Potassium 24 Hour Cancelled 05/22/17 0600: Immunoelectrophoresis Pending, Ref Lab Test Result Pending 05/22/17 0535: pH 7.30 *L, pCO2 45, pO2 91, HCO3 22, ABG O2 Sat (Measured) 96.0, P-50 (Temp Corrected) Y, Carboxyhemoglobin 0.7 L, O2 Concentration % 40%, Temperature 98.2 , Respiration Rate 24, O2 Delivery Method VISION-FFM, Vent Mode ST, Expiratory Pressure 6, Inspiratory Pressure 20, Phlebotomy Draw Site RIGHT RADIAL 05/22/17 0450: Troponin I 0.18 *H 05/22/17 0450: Anion Gap 12, Estimated GFR 24 L, BUN/Creatinine Ratio 32.0 H 05/22/17 0135: pH 7.28 *L, pCO2 47 H, pO2 82, HCO3 22, ABG O2 Sat (Measured) 95.0 L, P-50 ( Temp Corrected) Y, Carboxyhemoglobin 0.5 L, O2 Concentration % 40%, Temperature 98.3, Respiration Rate 24, O2 Delivery Method VISION-FFM, Vent Mode ST, Expiratory Pressure 6, Inspiratory Pressure 20, Phlebotomy Draw Site RIGHT RADIAL 05/21/17 2230: pH 7.20 *L, pCO2 58 H, pO2 131 H, HCO3 22, ABG O2 Sat (Measured) 98.0, Carboxyhemoglobin 0.3 L, O2 Concentration % 100, O2 Delivery Method NRB, Phlebotomy Draw Site RIGHT BRACHIAL 05/21/17 2030: Troponin I 0.17 *H, [id number] Pept 3540 H Microbiology 05/22 99 UPPER RESP: Surveillance Culture - COMP 05/22 99 GI: Surveillance Culture - COMP Recent Imaging Studies: PATIENT: ALEJANDRINA CARLOS PRESENT AGE: 81 PATIENT ACCOUNT NO: [id number] : 37 LOCATION: [facility] ORDERING PHYSICIAN: Dirk Bustillo MD SERVICE DATE: 05/23/17 EXAM TYPE: RAD - XRY-PORTABLE CHEST XRAY EXAMINATION: CR PORTABLE CHEST CLINICAL INFORMATION: Shortness of breath. Presumptive diagnosis of pulmonary edema. COMPARISON: Several prior chest x-rays, most recent of which is dated 05/21/2017. TECHNIQUE: Portable AP semierect view of the chest was obtained. FINDINGS: Cardiomediastinal silhouette is enlarged. Calcification of the aortic arch is seen. Central vascular congestion and progressive right lung perihilar opacities are seen with progressive density in the right upper lobe and the right lower lobe. Left perihilar opacities are similar to prior exam. Some indistinctness of the left hemidiaphragm is now noted, perhaps due to a small pleural effusion. Small right-sided pleural effusion is also seen. No pneumothorax. Bony structures are unremarkable. IMPRESSION: Findings are consistent with progressive congestive heart failure with asymmetric lesion of the alveolar edema, particularly affecting the right upper lobe and right lower lobe. Alternatively, superimposed pneumonia may be possible. Close clinical correlation is requested. DICTATED BY: Carmen Atkins MD DATE/TIME DICTATED:05/23/17839 AUDIT ANALYST:MARTIN DATE/TIME TRANSCRIBED:05/23/17839 CONFIDENTIAL, DO NOT COPY WITHOUT APPROPRIATE AUTHORIZATION. <Electronically signed in Other Vendor System> SIGNED BY: Carmen Atkins MD N. [id number] Assessment/Plan Assessment/Plan The patient has developed respiratory failure, likely on the basis of pulmonary congestion secondary to fluid overload. She seems improved now. She is diuresing. Her saturations are good on nasal oxygen. Her renal function has improved. She is back on IV Lasix. I recommend changing to oral Lasix. Because of her wheezing I think she would benefit from respiratory treatments. I think the patient can go back to general medicine floor and and doesn't need telemetry monitoring when she is cleared for discharge from the intensive care unit. Continue telemetry? No
[2017-05-23 17:00] VITALS: BP 140/80
[2017-05-24] VITALS: BP 158/78
[2017-05-24 05:01] LABS: ABSOLUTE BASOPHIL COUNT 0 /CUMM (0.0-0.2); ABSOLUTE EOSINOPHIL COUNT 0.1 /CUMM (0.0-0.7); ABSOLUTE GRANULOCYTE CT 5.3 /CUMM (1.4-6.5); ABSOLUTE LYMPH COUNT 1.7 /CUMM (1.2-3.4); ABSOLUTE MONOCYTE COUNT 0.7 /CUMM (0.10-0.60); BASOPHIL % 0.3 % (0.0-2.0); EOSINOPHIL % 1.2 % (0-5); GRANULOCYTE % 67.8 % (42.2-75.2); MEAN CORPUSCULAR HGB 28.4 PG (27.0-31.0); MEAN CORPUSCULAR HGB CONC 32.4 G/DL (33.0-37.0); MEAN CORPUSCULAR VOLUME 87.6 FL (81.0-99.0); MEAN PLATELET VOLUME 9.5 FL (7.4-10.4); PLATELET COUNT 292 /CUMM (130-400); RBC DISTRIBUTION WIDTH 14.7 % (11.5-14.5); RED BLOOD CELL CT 2.97 /CUMM (4.20-5.40); WHITE BLOOD CELL COUNT 7.8 /CUMM (4.8-10.8)
--- NOTE | 2017-05-24 07:26 | PN- Housestaff ---
See Addendum Subjective Follow-up For: CHF Influenza Subjective: Ms Hummel was seen examined this morning. She is resting comfortably in bed. States she would like to eat and up till this moment has not been fed. Apart from the above, she states she does feel better. She denies any fever, chills, nausea, vomiting. Denies any chest pain. Denies any dyspnea and dyspnea on exertion. She is currently on supplemental oxygen via nasal cannula. Review of Systems Constitutional: Reports: see HPI. Objective Last 24 Hrs of Vital Signs/I&O Vital Signs Date Time Temp Pulse Resp B/P B/P Pulse O2 O2 Flow FiO2 Mean Ox Delivery Rate 05/24 0828 62 162/80 05/24 0000 99 Nasal 3.0L Cannula 05/24 0000 97.5 62 20 158/78 99 Nasal 3.0L Cannula 05/23 2155 76 166/80 05/23 1700 97 Nasal 3.0L Cannula 05/23 1700 97.4 66 20 140/80 97 Nasal 3.0L Cannula 05/23 1110 70 130/70 Intake & Output 05/24 1600 05/24 0800 05/24 0000 Intake Total 240 120 Output Total 475 1300 Balance -235 -1180 Intake, IV 0 0 Intake, Oral 240 120 Number 1 1 Bowel Movements Output, Urine 475 1300 Patient 102.087 kg 102.569 kg Weight Weight Bed scale Bed scale Measurement Method Physical Exam General Appearance: Alert, Oriented X3, Cooperative Cardiovascular: Regular Rate, Normal S1, Normal S2 Lungs: Clear to Auscultation, rare rhonchi, left lung base Abdomen: Normal Bowel Sounds, Soft, No Tenderness Current Medications: Current Medications Sig/Hermelinda Start time Last Medication Dose Route Stop Time Status Admin Acetaminophen 650 MG ONCE ONE 05/23 2330 DC 05/23 PO 05/23 2331 2328 Acetaminophen 1,000 MG Q6P PRN 05/16 1430 AC 05/19 IV 2244 Aspirin Buffered 81 MG DAILY 05/17 1000 AC 05/24 PO 0828 Atorvastatin Calcium 40 MG 1700 05/17 1700 AC 05/23 PO 1812 Benzocaine/Menthol 1 DENIS Q2P PRN 05/17 0730 AC PO Carvedilol 3.125 MG BID 05/16 1448 AC 05/24 PO 0828 Furosemide 20 MG DAILY 05/24 1000 CAN PO Furosemide 20 MG DAILY 05/24 1000 AC 05/24 PO 0827 Furosemide 20 MG 0945 05/23 0945 DC 05/23 IV 05/23 0946 1109 Gabapentin 300 MG DAILY 05/16 1448 AC 05/24 PO 0828 Heparin Sodium 5,000 UNIT Q8 05/18 0830 AC 05/24 (Porcine) SC 0603 Insulin Aspart 0 TIDAC 05/19 2300 AC 05/24 SC 0804 Oxycodone/ 2 TAB Q6P PRN 05/16 1430 DC 05/18 Acetaminophen PO 0152 Last 24 Hrs of Lab/Zaire Results Last 24 Hrs of Labs/Mics: Laboratory Tests 05/24/17 0415: Anion Gap 12, Estimated GFR 31 L, BUN/Creatinine Ratio 31.9 H, CBC w Diff NO MAN DIFF REQ, RBC 2.97 L, MCV 87.6, MCH 28.4, RDW 14.7 H, MPV 9.5, Gran % 67.8 , Lymphocytes % 22.0, Monocytes % 8.7, Eosinophils % 1.2, Basophils % 0.3, Absolute Granulocytes 5.3, Absolute Lymphocytes 1.7, Absolute Monocytes 0.7 H, Absolute Eosinophils 0.1, Absolute Basophils 0, PUBS MCHC 32.4 L Assessment/Plan Assessment: Ms. Hummel is a 81-year-old female with past medical history of dementia, hypertension, hyperlipidemia, rheumatoid arthritis, systemic lupus erythematosus , chronic kidney disease followed by Dr. Kathleen, depression, diabetes mellitus, HFpEF followed by Dr. Yee who presented with dyspnea. 1. Acute hypoxic respiratory failure, likely due to fluid overlaod. 2. Type II HI 3. Heart Failure 4. Sepsis secondary to influenza, resolved. 5. Normocytic anemia 6. Hypomagnesemia 7. Acute on chronic kidney disease 8. Acute hyponatremia She had to be transferred to telemetry (in the ICU) for closer moniting. #Heart Failure: Patient has history of heart failure with preserved ejection fraction. Repeat echocardiogram shows EF greater than 65%, stage I diastolic dysfunction. Patient has responded well to IV diuresis, we will continue her on PO lasix. A Renal Ultrasound doppler to rule out LISA was don 05/22/2017. Appreciate cardiology recommendations #Sepsis secondary to influenza, #Resolved At the time of admission. She met 3/4 SIRS criteria (tachycardia, tachypnea, leukocytosis) on admission. Flu swab was positive for influenza, indicating source of her sepsis. CT chest was also done which showed groundglass opacities and small bilateral pleural effusions. She has remained Afebrile over the last 24 hours. -Droplet precautions have been discontinued. #Acute on chronic kidney disease: Monitor Renal Ultrasound, to rule out renal Artery Stenosis. No evidence of LISA. Will conitnue to monitor Cr. #Type II myocardial infarction: Patient likely had demand ischemia secondary to acute heart failure. Troponins trended down. No indication for cardiac cath. Residual Peak was likely due to previous rise in Troponin from 05/17. #Hypomagnesemia: Resolved. #Normocytic anemia: Patients Hemoglobin has remianed Stable. Last H/H: 8.4/26.0. She was transfused 1 unit of blood on 05/18/2017. Repeat hemoglobin showed good response. LDH is normal. -Guaiac stool -Hemoglobin goal greater than 7.5. #Acute hyponatremia: Sodium is now 144 stable from 144 yesterday. She is asymptomatic. -Continue to monitor #Chronic medical problems: Hyperlipidemia, CAD, hypertension, peripheral neuropathy, -Continue home atorvastatin, aspirin, lisinopril, gabapentin, carvedilol DVT prophylaxis with heparin Heart Healthy Diet Full code Problem List: 1. Renal insufficiency 2. Shortness of breath Pain Ratin Pain Location: No Pain endorsed. Pain Goal: Remain pain free Pain Plan: Acetaminophen Tomorrow's Labs & Rationales: BEP: monitor electrolytes in setting of acute illness and monitoring of renal function
[2017-05-24 08:00] VITALS: BP 162/76
--- NOTE | 2017-05-24 08:08 | PN- Pulmonary ---
Subjective HPI/Critical Care Issues: Patient remains comfortable without shortness of breath. She has not Required BiPAP. Renal function is improving with diuresis Objective Current Medications: Current Medications Sig/Hermelinda Start time Last Medication Dose Route Stop Time Status Admin Acetaminophen 650 MG ONCE ONE 05/23 2330 DC 05/23 PO 05/23 2331 2328 Acetaminophen 1,000 MG Q6P PRN 05/16 1430 AC 05/19 IV 2244 Aspirin Buffered 81 MG DAILY 05/17 1000 AC 05/23 PO 1110 Atorvastatin Calcium 40 MG 1700 05/17 1700 AC 05/23 PO 1812 Benzocaine/Menthol 1 DENIS Q2P PRN 05/17 0730 AC PO Carvedilol 3.125 MG BID 05/16 1448 AC 05/23 PO 2155 Furosemide 20 MG DAILY 05/24 1000 CAN PO Furosemide 20 MG DAILY 05/24 1000 AC PO Furosemide 20 MG 0945 05/23 0945 DC 05/23 IV 05/23 0946 1109 Gabapentin 300 MG DAILY 05/16 1448 AC 05/23 PO 1109 Heparin Sodium 5,000 UNIT Q8 05/18 0830 AC 05/24 (Porcine) SC 0603 Insulin Aspart 0 TIDAC 05/19 2300 AC 05/24 SC 0804 Oxycodone/ 2 TAB Q6P PRN 05/16 1430 DC 05/18 Acetaminophen PO 0152 Vital Signs & I&O Last 24 Hrs of Vitals and I&O: Vital Signs Date Time Temp Pulse Resp B/P B/P Pulse O2 O2 Flow FiO2 Mean Ox Delivery Rate 05/24 0000 99 Nasal 3.0L Cannula 05/24 0000 97.5 62 20 158/78 99 Nasal 3.0L Cannula 05/235 76 166/80 05/23 1700 97 Nasal 3.0L Cannula 05/23 1700 97.4 66 20 140/80 97 Nasal 3.0L Cannula 05/23 1110 70 130/70 Intake & Output 05/24 1600 05/24 0800 05/24 0000 Intake Total 240 120 Output Total 475 1300 Balance -235 -1180 Intake, IV 0 0 Intake, Oral 240 120 Number 1 1 Bowel Movements Output, Urine 475 1300 Patient 225 lb 226 lb Weight Weight Bed scale Bed scale Measurement Method And saturations 3 L 99% exam for chest shows occasional crackles there are no wheezes cardiac exam shows regular S1 and S2 without murmurs Impression/Plan Impression/Plan Impression/Plan: 81-year-old with hypertensive heart disease admitted with acute kidney injury in the setting of diuresis developed worsening congestive heart failure and acute hypercapnic respiratory failure which is improved. Respiratory status is improved with diuresis as is renal function Recommendations: Continue negative fluid balance as renal function allows. Taper FiO2. BiPAP appears no longer necessary. Patient should be evaluated for sleep apnea after discharge no further pulmonary suggestions please call for further pulmonary input otherwise will sign off
--- NOTE | 2017-05-24 09:44 | PN- Cardiology ---
Subjective Subjective: The patient is much more comfortable today. She is breathing easier. She is on nasal oxygen. She has no complaints of chest pain or shortness of breath. She is on oral Lasix. Her BUN and creatinine continued to slowly improve. Objective Vital Signs and I&Os Vital Signs Date Time Temp Pulse Resp B/P B/P Pulse O2 O2 Flow FiO2 Mean Ox Delivery Rate 05/24 827 62 162/80 05/24 0000 99 Nasal 3.0L Cannula 05/24 0000 97.5 62 20 158/78 99 Nasal 3.0L Cannula 05/23 2155 76 166/80 05/23 1700 97 Nasal 3.0L Cannula 05/23 1700 97.4 66 20 140/80 97 Nasal 3.0L Cannula 05/23 1110 70 130/70 Intake & Output 05/24 1600 05/24 0805/24 0000 05/23 1600 05/23 0805/23 0000 Intake Total 240 120 400 240 120 Output Total 475 1300 0301 303 9650 Balance -235 -1180 -1200 -360 -1380 Intake, IV 0 0 0 0 Intake, Oral 240 120 400 240 120 Number 1 1 1 1 1 Bowel Movements Output, Urine 475 1300 3406 723 0315 Patient 225 lb 226 lb Weight Weight Bed scale Bed scale Measurement Method Physical Exam: She is in no distress HEENT exam normal Chest a few rhonchi and very mild expiratory wheezing Heart regular rhythm no murmurs Extremities no edema Current Medications: Current Medications Sig/Hermelinda Start time Last Medication Dose Route Stop Time Status Admin Acetaminophen 650 MG ONCE ONE 05/23 2330 DC 05/23 PO 05/23 2331 2328 Acetaminophen 1,000 MG Q6P PRN 05/16 1430 AC 05/19 IV 2244 Aspirin Buffered 81 MG DAILY 05/17 1000 AC 05/24 PO 0828 Atorvastatin Calcium 40 MG 1700 05/17 1700 AC 05/23 PO 1812 Benzocaine/Menthol 1 DENIS Q2P PRN 05/17 0730 AC PO Carvedilol 3.125 MG BID 05/16 1448 AC 05/24 PO 0828 Furosemide 20 MG DAILY 05/24 1000 CAN PO Furosemide 20 MG DAILY 05/24 1000 AC 05/24 PO 0827 Furosemide 20 MG 0945 05/23 0945 DC 05/23 IV 05/23 0846 1109 Gabapentin 300 MG DAILY 05/16 1448 AC 05/24 PO 0828 Heparin Sodium 5,000 UNIT Q8 05/18 0830 AC 05/24 (Porcine) SC 0603 Insulin Aspart 0 TIDAC 05/19 2300 AC 05/24 SC 0804 Oxycodone/ 2 TAB Q6P PRN 05/16 1430 DC 05/18 Acetaminophen PO 0152 Results Last 48 Hrs of Labs/Mics: Laboratory Tests 05/24/17 0415: Anion Gap 12, Estimated GFR 31 L, BUN/Creatinine Ratio 31.9 H, CBC w Diff NO MAN DIFF REQ, RBC 2.97 L, MCV 87.6, MCH 28.4, RDW 14.7 H, MPV 9.5, Gran % 67.8 , Lymphocytes % 22.0, Monocytes % 8.7, Eosinophils % 1.2, Basophils % 0.3, Absolute Granulocytes 5.3, Absolute Lymphocytes 1.7, Absolute Monocytes 0.7 H, Absolute Eosinophils 0.1, Absolute Basophils 0, PUBS MCHC 32.4 L 05/23/17 0350: Anion Gap 11, Estimated GFR 27 L, Glucose 73, Calcium 8.4, Phosphorus 3.5, Magnesium 1.8, Total Bilirubin 0.2, AST 34, ALT 31, Albumin 2.4 L, CBC w Diff NO MAN DIFF REQ, RBC 2.84 L, MCV 87.9, MCH 28.8, RDW 14.9 H, MPV 9.4, Gran % 72.7, Lymphocytes % 18.0 L, Monocytes % 8.1, Eosinophils % 0.8, Basophils % 0.4 , Absolute Granulocytes 6.2, Absolute Lymphocytes 1.5, Absolute Monocytes 0.7 H , Absolute Eosinophils 0.1, Absolute Basophils 0, PUBS MCHC 32.8 L 05/22/17 1650: Troponin I 0.13 *H 05/22/17 1400: Ur Random Creatinine 18.9, Urine Total Volume 4275 H, Urine Creatinine 0.8 05/22/17 1000: Urine Total Volume Cancelled, Ur Sodium 24 Hour Cancelled, Ur Potassium 24 Hour Cancelled Assessment/Plan Assessment/Plan The patient is improved. I think she can go to general medicine floor at this time, ambulate and discharge home soon. Please call if further cardiology input is needed. Continue telemetry? No
[2017-05-24 16:00] VITALS: BP 166/80
--- NOTE | 2017-05-24 17:00 | Patient Discharge Instructions ---
Discharge Instructions General Discharge Information You were seen/treated for: Influenza CHF Watch for these problems: Chestpain, Weakness, Lethargy, Shortness of Breath Special Instructions: Please follow up with your PCP within seven days. Please have your PCP do a medication reconcilliation. We have provided you with a referral should you need a PCP. Please follow up with the classified ad taker in seven days. Please follow up with the miller apprentice Dr Yee in seven days. Diet Continue normal diet: Yes (Heart Healthy ) Activity Full Activity/No Limits: Yes (As Tolerated ) Acute Coronary Syndrome Inclusion Criteria At DC or during hospital stay patient has or had the following: ACS DIAGNOSIS No Discharge Core Measures Meds if any: Prescribed or Continued at Discharge Meds if any: NOT Prescribed or Continued at Discharge Congestive Heart Failure Inclusion Criteria At DC or during hospital stay patient has or had the following: CHF DIAGNOSIS No Discharge Core Measures Meds if any: Prescribed or Continued at Discharge Meds if any: NOT Prescribed or Continued at Discharge Cerebrovascular accident Inclusion Criteria At DC or during hospital stay patient has or had the following: CVA/TIA Diagnosis No Discharge Core Measures Meds if any: Prescribed or Continued at Discharge Meds if any: NOT Prescribed or Continued at Discharge Venous thromboembolism Inclusion Criteria VTE Diagnosis No VTE Type NONE VTE Confirmed by (Test) NONE Discharge Core Measures - Per Current guidelines, there needs to be overlap - treatment for the first 5 days of Warfarin therapy. - If discharged on Warfarin prior to 5 days of - overlap therapy, the patient will need to be - assessed for post discharge needs including - *Post discharge parental anticoagulation - *Warfarin and/or parental anticoagulation education - *Follow up date to check INR post discharge At least 5 days overlap therapy as Inpatient No Meds if any: Prescribed or Continued at Discharge Note: Overlap Therapy is Warfarin and Anticoagulant Meds if any: NOT Prescribed or Continued at Discharge
[2017-05-24] MEDS ORDERED: LASIX20 M1 PO (17:07)
--- NOTE | 2017-05-24 17:18 | Discharge Summary ---
Visit Information Visit Dates Admission Date: 05/16/17 Discharge Date: 05/25/2017 Hospital Course Course Attending Physician: Joe FOWLER,Humberto Sosa Primary Care Physician: Unknown Consulting Request: Consulting Specialty: Cardiology Hospital Course: Ms Hummel is a 81-year-old female with past medical history significant for hypertension, diabetes mellitus, neuropathy, hyperlipidemia, rheumatoid arthritis, lupus, depression, anemia, diastolic congestive heart failure, pulmonary hypertension presented with worsening shortness of breath for 24 hours CONE TENDER. On presentation, vital signs were T 98.5, HR 107, RR 24, BP 2-3/95, saturating 80% on room air. Laboratories were significant for white blood cell count 13.1, 90.2% monocytes, 11 9.7, MCV 87.2, BUN 42, creatinine 1.7 (baseline 1.9 post ( calcium 9.4, albumin 3.3, magnesium 1.5, alkaline phosphatase 180, troponin 0.08 , BNP 2840 (baseline 1000). Chest x-ray revealed cardiomegaly, pulmonary edema, and small bilateral pleural effusions. She was initially admitted to the telemetry service and below is a summarry of the care she received under us. Problem List: Acute hypoxic respiratory failure/acute on chronic diastolic congestive heart failure It appeared that the patient was not on Lasix as it was discontinued by her news assignment editor because of kidney disease. Her Last echocardiogram in 2015 showed diastolic heart failure. Her proBNP was elevated 2840 with chest x-ray findings as history of cardiomegaly, pulmonary edema, bilateral pleural effusions. On 05/21/2017 the patient was transferred to the [facility] after it appeared that she was respiratory distress. Prior to the transfer of the patient to the ICU an ABG was done (7.20/58/131/22/98). The Patient was placed on BiPAP. While in the ICU the patient did receive a pulmonology consultation. It appeared that this respiratory distress was likely the result of fluid overload. The patient was aggressively diuresed with IV lasix during this acute period. Recommended that patient should be evaluated for sleep apnea as out patient. Elevation in troponin likely due to type II TN. Prior to admission the patient was complaining of chest pain. Initial set of troponins was elevated at 0.37. No EKG changes were noted. Patient was seen by cardiology. The elevation in troponin was attributed to a type II TN. Patient was started on IV heparin which was later discontinued. Her Type II TN was likely precipitated by medication compliance issues. During this admission the patient also underwent echocardiogram results which have been attached to this report. In the interim she was diuresed gently with Lasix and her home Lasix dose decreased to 20 daily and we stop her hydrochlorothiazide. At the time of discharge there was no any plan for cardiac catheterization. SIRS criteria At the time of admission, Ms Hummel met 3/4 SIRS criteria (tachycardia, tachypnea, leukocytosis) During admission she was febrile up to 101.3. A flu swab was done which was positive. This was likely the source of her sepsis. She was started on Oseltamivir which was renally dosed. She completed the entire course of oseltamivir. Chronic kidney disease It appeared the patient did have a history of diabetic nephropathy, and her baseline creatinine ranged in the 1.7 region. On 05/18/2017 the patient's creatinine right phan to 3.1.We obtained a nephrology consultation.They recommended imaging studies to be done as well and suggested diurectis to be held. Serum electrophoresis and serum free light chains were also ordered. This rapid rise in creatinine was likely the result of superimposed prerenal azootemia likely due to diuretic therapy. A 24-hour urine collection was also ordered. Prior to discharge, the patient creatinine had returned to normal. Diabetes mellitus Over the course of the admission the patient's diabetes was monitored with a combination of fingersticks and Accu-Cheks. She was placed on NovoLog sliding scale. The patients home medications were resumed at the time of discharge. The hydrochlorothiazide was held at the time of dischharge. Patient was a full code during admission. Allergies: Coded Allergies: Penicillins (Severe, ANAPHYLAXIS/RASH 10/29/15) Pertinent Lab Results: SERVICE DATE: 05/16/17- EXAM TYPE: CARD - ECHOCARDIOGRAM ALEJANDRINA HUMMEL Age: 81 : 1935 Gender: F Exam Date: 05/16/2017 19:31 Exam Location: [address] [place] [address] Ht (in): 63 Wt (lb): 206 BSA: 2.08 BP: 164 / 74 Ordering Physician: Adolfo Hopper MD Referring Physician: Sukumar Yee MD Chief, SoC Technologist: Elise Miller [facility] Room Number: 180-02 Indications: HEART FAILURE Rhythm: Sinus Technical Quality: Fair FINDINGS Left Ventricle Normal global left ventricular size, wall thickness, systolic function with no obvious regional wall motion abnormalities. Left ventricular ejection fraction is estimated at >65 %. Abnormal relaxation filling pattern of the left ventricle for age (stage 1 diastolic dysfunction). Right Ventricle The right ventricle is normal in size and function. Right Atrium The right atrium is normal in size. Left Atrium Mild to moderate left atrial dilatation. Mitral Valve Mild thickening/calcification of the mitral valve leaflets. Moderate mitral annular calcification. Bnkf-cj-[id number] mitral regurgitation. Aortic Valve Focal thickening of the aortic valve cusps. No aortic stenosis. No aortic regurgitation. Tricuspid Valve Tricuspid valve is normal in structure and function. Mild-to- moderate tricuspid regurgitation. Right ventricular systolic pressure estimated to be elevated at 60-65 mmHg. Moderate to severe pulmonary hypertension. Pulmonic Valve Structurally normal pulmonic valve. There is no pulmonic regurgitation. Pericardium Normal pericardium without effusion. No pleural effusion. Great Vessels Normal aortic root dimension. The aortic arch and great vessels are not well seen. CONCLUSIONS Normal global left ventricular size, wall thickness, systolic function with no obvious regional wall motion abnormalities. Left ventricular ejection fraction is estimated at >65 %. Abnormal relaxation filling pattern of the left ventricle for age (stage 1 diastolic dysfunction). Mild to moderate left atrial dilatation. Mild thickening/calcification of the mitral valve leaflets. Moderate mitral annular calcification. Xoek-mk-cnofczto mitral regurgitation. Focal thickening of the aortic valve cusps. No aortic stenosis. Tpvt-nw-xwmoptfd tricuspid regurgitation. Right ventricular systolic pressure estimated to be elevated at 60- 65 mmHg. Moderate to severe pulmonary hypertension. The aortic arch and great vessels are not well seen. Sukumar Yee M.D. SERVICE DATE: 05/18/17- EXAM TYPE: US - US-RENAL/KIDNEY EXAMINATION: US RETROPERITONEAL COMPLETE (RENAL) CLINICAL INFORMATION: Acute kidney insufficiency. COMPARISON: Renal ultrasound 02/19/2017. CT of chest 05/17/2017 TECHNIQUE: Real-time imaging of the kidneys and bladder. Color Doppler exam used. FINDINGS: Exam limited by body habitus. Patient unable to follow breathing instructions RIGHT KIDNEY: 13.9 x 7.7 x 5.4 cm (SAG x AP x TRV). The kidney is normal in size, contour, and echogenicity. Renal cortical thickness is normal. There is an echogenic focus in the midpole right kidney measuring 2 x 3 mm likely a nonobstructive stone. LEFT KIDNEY: 12.5 x 6.1 x 5.4 cm (SAG x AP x TRV). The kidney is normal in size, contour, and echogenicity. Renal cortical thickness is normal. No calculi or focal parenchymal lesions. No hydronephrosis. BLADDER: Herrera catheter in place. The bladder is empty. Ureteral jets are not seen. IMPRESSION: Likely a 2 x 3 mm nonobstructive stone in the midpole right kidney. There is no hydronephrosis. Both kidneys have normal size, contour and echogenicity.. DICTATED BY: Dave Beverly MD SERVICE DATE: 05/22/17- EXAM TYPE: US - US-ABD/PELV ORGAN DOPPLER EXAMINATION: US RENAL WITH DOPPLER CLINICAL INFORMATION: 81-year-old woman with increased sensitivity to Lasix. Evaluate for renal artery stenosis. COMPARISON: 05/18/2017 ultrasound TECHNIQUE: Grayscale and color and spectral Doppler assessment of the kidneys was attempted. Unfortunately, the exam is rather limited due to patient body habitus, inability to breath-hold, and difficulty with positioning. FINDINGS: The right kidney measures 12.3 x 5.1 x 6.1 cm. The peak systolic velocity in the distal right renal artery is 57.5 cm/s. It is 100 cm/s in the mid right renal artery and 149 the proximal right renal artery. It is 85.8 cm/s in the proximal aorta, giving a renal to aortic ratio of 1.7 The left kidney measures 10.3 x 5.8 x 6.1 cm. No Doppler images could be obtained on the left side. The bladder is decompressed by a a Herrera catheter. IMPRESSION: Limited exam. No evidence of renal artery stenosis on the right side. DICTATED BY: Ivette Beasley MD SERVICE DATE: 05/16/17-0854 EXAM TYPE: RAD - XRY-PORTABLE CHEST XRAY EXAMINATION: XR PORTABLE CHEST CLINICAL INFORMATION: Congestive heart failure. Pneumonia. COMPARISON: Chest radiograph dated 02/18/2017. TECHNIQUE: Portable frontal view of the chest was obtained. FINDINGS: There are low lung volumes. Cardiac silhouette appears enlarged. There is calcification of the thoracic aorta. There is pulmonary vascular congestion and bibasilar airspace opacities, likely representing pulmonary edema. I suspect there are small pleural effusions bilaterally. No pneumothorax. IMPRESSION: Cardiomegaly and pulmonary edema. I suspect there are small bilateral pleural effusions. DICTATED BY: Jairon Alvarez MD Disposition Summary Disposition Principal Diagnosis: Acute hypoxic respiratory failure/acute on chronic diastolic congestive heart failure Additional Diagnosis: DM CKD Discharge Disposition: SNF Discharge Instructions General Discharge Information Code Status: Full Code Patient's Diet: Heart Healthy Patient's Activity: As Tolerated Follow-Up Instructions/Appts: Please follow up with your PCP within seven days. Please have your PCP do a medication reconcilliation. We have provided you with a referral should you need a PCP. Please follow up with the news assignment editor in seven days. Please follow up with the activity specialist Dr Yee in seven days. Recommended that patient should be evaluated for sleep apnea as an out patient. Medications at Discharge Discharge Medications: Stop taking the following medications: Hydrochlorothiazide (Hydrochlorothiazide) 12.5 MG TABLET ORAL DAILY Qty = 30 Continue taking these medications: Dulaglutide (Trulicity) 1.5 MG/0.5 ML PEN.INJCTR 1.5 Milligram Inject into fatty tissue EVERY MONDAY Qty = 6 Comments: NOT GIVEN Aspirin (Lo-Dose Aspirin EC) 81 MG TABLET.DR 1 Tablet ORAL DAILY Qty = 30 Comments: Last Taken: 05/25/17 Time: 1030 NEXT DOSE TOMORROW Atorvastatin Calcium (Atorvastatin Calcium) 40 MG TABLET 1 Tablet ORAL DAILY Qty = 30 Comments: Last Taken: 05/25/17 Time:1700 NEXT THIS TODAY Carvedilol (Carvedilol) 3.125 MG TABLET 1 Tablet ORAL TWICE DAILY Qty = 180 Comments: Last Taken: 05/25/17 Time: 1030 NEXT DOSE TONIGHT Gabapentin (Gabapentin) 300 MG CAPSULE 1 Capsule ORAL DAILY Qty = 30 Comments: Last Taken:05/25/17 Time:1030 Lisinopril (Lisinopril) 5 MG TABLET 1 Tablet ORAL DAILY Qty = 90 Comments: NOT TAKEN Insulin Aspart Protam & Aspart (Novolog Mix 70-30 Flexpen Syrn) 100 UNIT/ML (70- 30) INSULN.PEN 25 Units Inject into fatty tissue BIDAC Qty = 30 Instructions: TAKE 25 UNITS BEFORE BREAKFAST AND BEFORE DINNER CHECK BLOOD SUGAR BEFORE BREAKFAST AND DINNER AND KEEP RECORD Comments: NOT TAKEN IN HOSPITAL- SUBSTITUTED Ergocalciferol (Vitamin D2) (Vitamin D2) 50,000 UNIT CAPSULE 1 Capsule ORAL Once a Week Comments: NOT GIVEN IN HOSPITAL Start taking the following new medications: Furosemide (Lasix) 20 MG TABLET 1 Tablet ORAL DAILY Qty = 30 No Refills Comments: Last Taken: 05/25/17 Time: 1030 Copies To: Ivanna FOWLER,Ivanna; Joselito FOWLER,Sukumar Barragan
[2017-05-24 17:35] VITALS: BP 158/68
[2017-05-24 22:51] VITALS: BP 142/70
[2017-05-25 06:00] VITALS: BP 138/76
--- NOTE | 2017-05-25 07:16 | PN- Housestaff ---
Cesia FOWLER,Brooke 05/25/17 0715: Subjective Follow-up For: CHF Influenza Subjective: Patient is seen and examined at bedside, she was eating her breakfast, denies any shortness of breath, fever, chills, nausea, vomiting. Still endorses mild cough with minimal expectoration, saturating at 96 on 2 L nasal oxygen Review of Systems Constitutional: Denies: no symptoms. Cardiovascular: Denies: chest pain, edema, orthopena, palpitations, peripheral edema. Respiratory: Reports: cough, sputum production. Denies: hemoptysis, orthopnea, short of breath, stridor, wheezing. Gastrointestinal: Denies: abdominal pain, bloating, constipation, diarrhea, distention. Genitourinary: Denies: no symptoms. Musculoskeletal: Denies: no symptoms. Objective Last 24 Hrs of Vital Signs/I&O Vital Signs Date Time Temp Pulse Resp B/P B/P Pulse O2 O2 Flow FiO2 Mean Ox Delivery Rate 05/25 0757 Nasal 2.0L Cannula 05/25 0600 98.5 74 20 138/76 96 Nasal Cannula 05/25 0000 97 Nasal 2.0L Cannula 05/24 2251 98.7 69 24 142/70 96 Nasal 3.0L Cannula 05/24 2112 98.7 69 24 142/70 05/24 1735 99.1 69 20 158/68 97 Nasal 2.0L Cannula 05/24 1600 96 Nasal 2.0L Cannula 05/24 1600 97.8 74 22 166/80 96 Nasal 2.0L Cannula Intake & Output 05/25 1600 05/25 0800 05/25 0000 Intake Total 580 480 Output Total 650 700 Balance -70 -220 Intake, IV 100 Intake, Oral 480 480 Output, Urine 650 700 Patient 216 lb Weight Weight Bed scale Measurement Method Physical Exam General Appearance: Alert, Oriented X3, Cooperative, No Acute Distress Skin: No Rashes, No Breakdown, No Significant Lesion HEENT: Atraumatic, PERRLA, EOMI, Mucous Membr. moist/pink Neck: Supple, No JVD Cardiovascular: Normal S1, Normal S2, No Murmurs Lungs: Clear to Auscultation, Normal Air Movement Abdomen: Normal Bowel Sounds, Soft, No Tenderness Neurological: Normal Speech, Strength at 5/5 X4 Ext Extremities: No Clubbing, No Cyanosis, No Edema Assessment/Plan Assessment: Ms. Hummel is a 81-year-old female with past medical history of dementia, hypertension, hyperlipidemia, rheumatoid arthritis, systemic lupus erythematosus , chronic kidney disease followed by Dr. Kathleen, depression, diabetes mellitus, HFpEF followed by Dr. Yee who presented with dyspnea. 1. Acute hypoxic respiratory failure, likely due to fluid overlaod. 2. Type II MO 3. Heart Failure 4. Sepsis secondary to influenza, resolved. 5. Normocytic anemia 6. Hypomagnesemia 7. Acute on chronic kidney disease 8. Acute hyponatremia She had to be transferred to telemetry (in the ICU) for closer moniting. #Acute on chronic diastolic congestive Heart Failure: Patient has history of heart failure with preserved ejection fraction. Repeat echocardiogram shows EF greater than 65%, stage I diastolic dysfunction. Continue by mouth Lasix A Renal Ultrasound doppler to rule out LISA was don 05/22/2017. Appreciate cardiology recommendations #Sepsis secondary to influenza, Resolved #Acute on chronic kidney disease: Improving Continue to monitor renal function #Type II myocardial infarction: Patient likely had demand ischemia secondary to acute heart failure. Troponins trended down. No indication for cardiac cath. Residual Peak was likely due to previous rise in Troponin from 05/17. #Hypomagnesemia: Resolved. #Normocytic anemia: Patients Hemoglobin has remianed Stable. Last H/H: 8.4/26.0. She was transfused 1 unit of blood on 05/18/2017. Repeat hemoglobin showed good response. LDH is normal. -Guaiac stool -Hemoglobin goal greater than 7.5. #Acute hyponatremia: Sodium is now 144 stable from 144 yesterday. She is asymptomatic. -Continue to monitor #Chronic medical problems: Hyperlipidemia, CAD, hypertension, peripheral neuropathy, -Continue home atorvastatin, aspirin, lisinopril, gabapentin, carvedilol Patient is a stable for discharge to [facility] DVT prophylaxis with heparin Heart Healthy Diet Full code Problem List: 1. Renal insufficiency 2. Shortness of breath 3. CHF (congestive heart failure) Pain Ratin Pain Location: n/a Pain Goal: Remain pain free Pain Plan: pain pathway Tomorrow's Labs & Rationales: n/a DVT/Prophylaxis: mechanical, pharmacological Humberto Diaz 05/25/17 1543: Attending MD Review Statement Attending Statement Attending MD Statement: examined this patient, discuss w/resident/PA/TRIM LINE WORKER, agreed w/resident/PA/TRIM LINE WORKER, discussed with family, reviewed EMR data (avail), discussed with nursing, discussed with case mgmt Attending Assessment/Plan: pt doing better today. pt will be dced on low dose lasix and we have stopped her hctz which she was on at home given her senstivity to diuretics and also her CKD. she will be dced to [facility] and will f/u as an outpatient with cardiology and nephrology. d/w pt and pts daughter at bedside the care plan. Pt was treated for sepsis secondary to influenza, Acute CHF exacerbation , POP on CKD , Type 2 MO during the hospital stay.
[2017-05-25 12:30] VITALS: BP 150/70
--- NOTE | 2017-05-25 12:42 | ULTRASOUND REPORT ---
EXAMINATION: US TRIPLEX OF LOWER EXTREMITIES, BILATERAL CLINICAL INFORMATION: Bilateral lower extremity pain. COMPARISON: Venous ultrasound dated 10/29/2015. TECHNIQUE: Color-flow triplex imaging with spectral analysis and compression Doppler were performed on the bilateral lower extremities. FINDINGS: Respiratory variation, normal compression and augmented flow are noted throughout the lower extremities. The visualized common femoral vein, proximal greater saphenous vein, femoral vein, profunda femoral vein, popliteal vein and visualized mid calf venous segments show no evidence of deep venous thrombosis. There is no Wood's cyst. IMPRESSION: Normal triplex scan without evidence of deep venous thrombosis involving the bilateral lower extremities.
[2017-05-25 14:13] VITALS: BP 122/80
--- NOTE | 2017-05-25 15:03 | PN- Nephrology ---
Assessment/Plan Assessment: 1. Acute kidney injury. Likely due to both influenza and CHF. She is now near her previous baseline. In fact she is better than she has been quite some time. 2. Chronic kidney disease stage IV secondary to diabetic nephropathy with a baseline creatinine level that has generally ranged from 1.5 to the low 2's. She has a history of diabetic nephropathy 3. Influenza -resolved 3 pneumonia secondary to #2 Suggestion: 1. No change in therapy 2. Maintain on a low-sodium diet Subjective Subjective: Patient feels fairly well. No shortness of breath no cough no difficulty voiding. Objective Vital Signs and I&Os Vital Signs Date Time Temp Pulse Resp B/P B/P Pulse O2 O2 Flow FiO2 Mean Ox Delivery Rate 05/25 1413 98.1 69 20 122/80 99 Nasal 3.0L Cannula 05/25 1230 72 150/70 05/25 1037 74 180/90 05/25 0800 98 Nasal 2.0L Cannula 05/25 0757 Nasal 2.0L Cannula 05/25 0600 98.5 74 20 138/76 96 Nasal Cannula 05/25 0000 97 Nasal 2.0L Cannula 05/24 2251 98.7 69 24 142/70 96 Nasal 3.0L Cannula 05/24 2112 98.7 69 24 142/70 05/24 1735 99.1 69 20 158/68 97 Nasal 2.0L Cannula 05/24 1600 96 Nasal 2.0L Cannula 05/24 1600 97.8 74 22 166/80 96 Nasal 2.0L Cannula Intake & Output 05/25 1600 05/25 0400 05/24 1600 05/24 0400 05/23 1600 05/23 0400 Intake Total 389 483 9127 120 640 120 Output Total 219 510 8917 1300 2200 1500 Balance -70 -220 -635 -1180 -1560 -1380 Intake, IV 100 0 0 0 0 Intake, Oral 438 804 6658 120 640 120 Number 1 1 2 1 Bowel Movements Output, Urine 285 176 4941 1300 2200 1500 Patient 216 lb 225 lb 226 lb Weight Weight Bed scale Bed scale Bed scale Measurement Method Physical Exam General Appearance: well developed/nourished, no apparent distress, alert, awake , comfortable Head: atraumatic Ears, Nose, Throat: hearing grossly normal Neck: normal inspection, supple, trachea mid line Respiratory: lungs clear Cardiovascular: regular rate/rhythm, gallop Abdomen: normal bowel sounds, soft, non-tender Back: normal inspection Extremities: normal inspection Neurologic/Psychiatric: no motor/sensory deficits, awake, alert Current Medications: Current Medications Sig/Hermelinda Start time Last Medication Dose Route Stop Time Status Admin Acetaminophen 1,000 MG .STK-MED ONE 05/25 0609 DC IV 05/25 0610 Acetaminophen 1,000 MG Q6P PRN 05/16 1430 AC 05/25 IV 0612 Aspirin Buffered 81 MG DAILY 05/17 1000 AC 05/25 PO 1037 Atorvastatin Calcium 40 MG 1700 05/17 1700 AC 05/24 PO 1628 Benzocaine/Menthol 1 DENIS Q2P PRN 05/17 0730 AC PO Carvedilol 3.125 MG BID 05/16 1448 AC 05/25 PO 1037 Furosemide 20 MG DAILY 05/24 1000 AC 05/25 PO 1038 Gabapentin 300 MG DAILY 05/16 1448 AC 05/25 PO 1038 Heparin Sodium 5,000 UNIT Q8 05/18 0830 AC 05/25 (Porcine) SC 1419 Insulin Aspart 0 TIDAC 05/19 2300 AC 05/25 SC 1235 Results Pertinent Lab Results: Laboratory Tests 05/25 05/24 0800 0415 Chemistry Sodium (137 - 145 mmol/L) 143 144 Potassium (3.5 - 5.1 mmol/L) 4.8 4.9 Chloride (98 - 107 mmol/L) 105 106 Carbon Dioxide (22 - 30 mmol/L) 28 26 Anion Gap (5 - 16) 10 12 BUN (7 - 17 mg/dL) 42 H 51 H Creatinine (0.5 - 1.0 mg/dL) 1.4 H 1.6 H Estimated GFR (>60 ml/min) 36 L 31 L BUN/Creatinine Ratio (7 - 25 %) 30.0 H 31.9 H Hematology CBC w Diff NO MAN DIFF REQ WBC (4.8 - 10.8 /CUMM) 7.8 RBC (4.20 - 5.40 /CUMM) 2.97 L Hgb (12.0 - 16.0 G/DL) 8.4 L Hct (37 - 47 %) 26.0 L MCV (81.0 - 99.0 FL) 87.6 MCH (27.0 - 31.0 PG) 28.4 RDW (11.5 - 14.5 %) 14.7 H Plt Count (130 - 400 /CUMM) 292 MPV (7.4 - 10.4 FL) 9.5 Gran % (42.2 - 75.2 %) 67.8 Lymphocytes % (20.5 - 51.1 %) 22.0 Monocytes % (1.7 - 9.3 %) 8.7 Eosinophils % (0 - 5 %) 1.2 Basophils % (0.0 - 2.0 %) 0.3 Absolute Granulocytes (1.4 - 6.5 /CUMM) 5.3 Absolute Lymphocytes (1.2 - 3.4 /CUMM) 1.7 Absolute Monocytes (0.10 - 0.60 /CUMM) 0.7 H Absolute Eosinophils (0.0 - 0.7 /CUMM) 0.1 Absolute Basophils (0.0 - 0.2 /CUMM) 0 PUBS MCHC (33.0 - 37.0 G/DL) 32.4 L 05/23 05/22 0350 1650 Chemistry Sodium (137 - 145 mmol/L) 144 Potassium (3.5 - 5.1 mmol/L) 4.4 Chloride (98 - 107 mmol/L) 109 H Carbon Dioxide (22 - 30 mmol/L) 25 Anion Gap (5 - 16) 11 BUN (7 - 17 mg/dL) 58 H Creatinine (0.5 - 1.0 mg/dL) 1.8 H Estimated GFR (>60 ml/min) 27 L Glucose (65 - 99 mg/dL) 73 Calcium (8.4 - 10.2 mg/dL) 8.4 Phosphorus (2.5 - 4.5 mg/dL) 3.5 Magnesium (1.6 - 2.3 mg/dL) 1.8 Total Bilirubin (0.2 - 1.3 mg/dL) 0.2 AST (14 - 36 U/L) 34 ALT (9 - 52 U/L) 31 Troponin I (< 0.11 ng/ml) 0.13 *H Albumin (3.5 - 5.0 g/dL) 2.4 L Hematology CBC w Diff NO MAN DIFF REQ WBC (4.8 - 10.8 /CUMM) 8.5 RBC (4.20 - 5.40 /CUMM) 2.84 L Hgb (12.0 - 16.0 G/DL) 8.2 L Hct (37 - 47 %) 25.0 L MCV (81.0 - 99.0 FL) 87.9 MCH (27.0 - 31.0 PG) 28.8 RDW (11.5 - 14.5 %) 14.9 H Plt Count (130 - 400 /CUMM) 224 MPV (7.4 - 10.4 FL) 9.4 Gran % (42.2 - 75.2 %) 72.7 Lymphocytes % (20.5 - 51.1 %) 18.0 L Monocytes % (1.7 - 9.3 %) 8.1 Eosinophils % (0 - 5 %) 0.8 Basophils % (0.0 - 2.0 %) 0.4 Absolute Granulocytes (1.4 - 6.5 /CUMM) 6.2 Absolute Lymphocytes (1.2 - 3.4 /CUMM) 1.5 Absolute Monocytes (0.10 - 0.60 /CUMM) 0.7 H Absolute Eosinophils (0.0 - 0.7 /CUMM) 0.1 Absolute Basophils (0.0 - 0.2 /CUMM) 0 PUBS MCHC (33.0 - 37.0 G/DL) 32.8 L
[2017-05-25 16:27] VITALS: BP 122/80
== END 2017-05-25 17:10 | DRG 871 ==
LOC: ERH 11:31 → 1NO 13:17 → ERHI 13:17 → CRI 13:17 → ENRESERV 14:32 → ENTRNSPT 16:34 → 1NO 17:02 → CMPTRNSPT 17:19 → 1NO 05-17 20:22 → ENTRNSPT 05-19 19:10 → EDTRNSPT 05-19 19:34 → EDTRNSPTSTS 05-19 19:35 → EDTRNSPT 05-19 19:54 → 2NA 05-19 21:59 → CMPTRNSPT 05-19 22:04 → CRI 05-21 22:51 → ENTRNSPT 05-24 16:58 → 2NA 05-24 17:27 → CMPTRNSPT 05-24 17:44 → ENPENDDIS 05-25 14:56 → 2NA 05-25 17:10
PROVIDERS: Emergency Medicine; Hospitalist; Internal Medicine; Student in an Organized Health Care Education/Training Program
PROC: 30233N1 Transfusion of Nonautologous Red Blood Cells into Peripheral Vein, Percutaneous Approach (ICD-10-PCS; principal; 2017-05-18)
DX: A41.89 Other specified sepsis (principal); I50.33 Acute on chronic diastolic (congestive) heart failure; I21.A1 Myocardial infarction type 2; J96.01 Acute respiratory failure with hypoxia; N17.9 Acute kidney failure, unspecified; N18.4 Chronic kidney disease, stage 4 (severe); I13.0 Hypertensive heart and chronic kidney disease with heart failure and stage 1 through stage 4 chronic kidney disease, or unspecified chronic kidney disease; E87.1 Hypo-osmolality and hyponatremia; E11.22 Type 2 diabetes mellitus with diabetic chronic kidney disease; R65.20 Severe sepsis without septic shock; F03.90 Unspecified dementia, unspecified severity, without behavioral disturbance, psychotic disturbance, mood disturbance, and anxiety; E66.9 Obesity, unspecified; Z68.36 Body mass index [BMI] 36.0-36.9, adult; D63.8 Anemia in other chronic diseases classified elsewhere; M06.9 Rheumatoid arthritis, unspecified; J11.1 Influenza due to unidentified influenza virus with other respiratory manifestations
CPT/HCPCS: 1NP; 1NSP; 2NAP; 2NASP; 83883; 84133; 84300; CCU; 36415; 71045; 71046; 74021; 76775; 81001; 82436; 82570; 84165; 86334; 86920; 87040; 87070; 87086; 87804; 87804-59; 93005; 93010; 93306; 93970; 94799; 97110-GO; 97116-GO; 97161-GP; 97530-GO; J0131; J0744; J1644; J1815; J1940; J2405; J3370; J7040; P9016

== ENCOUNTER 2017-06-13 14:37 | Emergency (ER) | payer OTHER, MEDICARE ==
[~2017-06-13] VITALS: Ht 160 cm; Wt 101.2 kg
[2017-06-13 15:02] VITALS: BP 176/82
--- NOTE | 2017-06-13 17:51 | ED GENERAL ADULT ---
History of Present Illness General Chief Complaint: General Adult Stated Complaint: HIGH BLOOD PRESSURE Vital Signs & Intake/Output Vital Signs & Intake/Output Vital Signs Date Time Temp Pulse Resp B/P B/P Pulse O2 O2 Flow FiO2 Mean Ox Delivery Rate 06/13 1502 97.6 80 20 176/82 98 Room Air Allergies Coded Allergies: Penicillins (Severe, ANAPHYLAXIS/RASH 10/29/15) Reconcile Medications Aspirin (Lo-Dose Aspirin EC) 81 MG TABLET.DR 1 TAB PO DAILY HEART/BLOOD ( Reported) Atorvastatin Calcium 40 MG TABLET 1 TAB PO DAILY CHOLESTEROL (Reported) Carvedilol 3.125 MG TABLET 1 TAB PO BID HEART/BP (Reported) Dulaglutide (Trulicity) 1.5 MG/0.5 ML PEN.INJCTR 1.5 MG SC QTHURS DM ( Reported) Ergocalciferol (Vitamin D2) (Vitamin D2) 50,000 UNIT CAPSULE 1 CAP PO QW VITAMIN SUPPORT (Reported) Furosemide (Lasix) 20 MG TABLET 1 TAB PO DAILY Fluid Overlaod Gabapentin 300 MG CAPSULE 1 CAP PO DAILY NERVE PAIN (Reported) Insulin Aspart Protam & Aspart (Novolog Mix 70-30 Flexpen Syrn) 100 UNIT/ML (70- 30) INSULN.PEN 25 UNITS SC BIDAC DIABETES TAKE 25 UNITS BEFORE BREAKFAST AND BEFORE DINNER CHECK BLOOD SUGAR BEFORE BREAKFAST AND DINNER AND KEEP RECORD Lisinopril 5 MG TABLET 1 TAB PO DAILY BP (Reported) Triage Note: PT TO ED WITH DAUGHTER, SENT BY [facility] FOR HTN. PT HAD F/U APPT THERE TODAY S/P DISCHARGE. WAS FOUND TO BE HYPERTENSIVE. DENIES PAIN, C/P. DENIES PAIN, C/P. PT EATING [facility] DURING TRIAGE. BP 176/82 IN TRIAGE. LATVIAN SPEAKING, DAUGHTER HERE TO TRANSLATE. HPI: Patient is a 81-year-old female with past medical history of hypertension hyperlipidemia and diabetes Past History Travel History Traveled to [place] past 21 day No Medical History Neurological: EARLY DEMENTIA EENT: NONE Cardiovascular: hypertension, hyperlipidemia Respiratory: NONE Gastrointestinal: NONE Hepatic: NONE Renal: NONE Musculoskeletal: rheumatoid arthritis, LUPUS Psychiatric: depression Endocrine: diabetes Blood Disorders: anemia Cancer(s): NONE [employer]BI[employer] EQU[employer]MENT SERVICER/Reproductive: NONE Other Medical Hx: LUPUS History of MRSA: No History of VRE: No History of CDIFF: No Surgical History Surgical History: hysterectomy Psychosocial History Who do you live with Daughter Services at Home None What is your primary language Azeri Tobacco Use: Quit >30 days ago ETOH Use: denies use Illicit Drug Use: denies illicit drug use Family History Family History, If Any: grandfather FH: prostate cancer DAUGHTER Blood clots FH: diabetes mellitus FHx: hypertension SON Blood clots Departure Departure Condition: Stable Referrals: Maribel FOWLER,Ronald Hartman (PCP) Departure Forms: Customer Survey General Discharge Information
== END 2017-06-13 17:51 | disposition admitted as inpatient to this hospital (09) ==
LOC: ERH 14:37
DX: R03.0 Elevated blood-pressure reading, without diagnosis of hypertension (principal)